=== PATIENT | female | born 1945 | race Caucasian/White ===

== ENCOUNTER 2016-06-15 05:07 | Observation (INO) ==
--- NOTE | 2016-06-15 05:23 | Emergency Department Note ---
Disposition Clinical Impression: Atrial fibrillation with RVR Disposition: Admitted As Inpatient Condition: Fair Referrals: NO,PCP [Non-Partnered Physician] - Forms: ED Satisfaction Letter General Adult HPI - General Chief complaint: ED Chest Pain Stated complaint: CP/REESE Source: patient, EMS Limitations: no limitations - History of Present Illness HPI Narrative: This is a 71-year-old female the previous history of atrial fibrillation although she has not it all a time. She felt onset of palpitations at around 3 AM. She has some discomfort with that at the time. No LOC 70 pain or swelling. She arrives atrial fibrillation with rapid ventricular response at a rate of about 170. Pain Scale: 4 - Related Data Home Medications Medication Instructions Recorded Confirmed Bitter Melon 1 tab PO DAILY 01/12/15 01/12/15 Cholecalciferol (Vitamin D3) 2,000 unit PO DAILY 01/12/15 01/12/15 [Vitamin D3] Fosamax 70 mg PO QWEEK 01/12/15 01/13/15 Losartan [Cozaar] 50 mg PO DAILY 01/12/15 01/13/15 Metoprolol [Lopressor] 50 mg PO BID 01/12/15 01/13/15 Multivitamin [Multi-Day Vitamins] 1 each PO DAILY 01/12/15 01/13/15 Nitroglycerin [Nitrostat] 0.4 mg SL Q5-6MIN PRN 01/12/15 01/13/15 Omeprazole [PriLOSEC] 40 mg PO DAILY 01/12/15 01/12/15 Rosuvastatin [Crestor] 40 mg PO HS 01/12/15 01/13/15 Previous Rx's Medication Instructions Recorded Clopidogrel [Plavix] 75 mg PO DAILY #30 tablet 01/13/15 Warfarin [Coumadin] 5 mg PO DAILY@1800 #30 tablet 01/13/15 Allergies Allergy/AdvReac Type Severity Reaction Status Date / Time codeine Allergy Vomiting Verified 04/09/15 13:05 Penicillins AdvReac Rash Verified 01/12/15 23:06 All systems ED: reviewed and negative except as stated. Constitutional: Denies: fever Respiratory: Denies: cough Gastrointestinal: Denies: abdominal pain, vomiting Past Medical History - Past Medical History Attestation: Yes The following information was validated with the patient. Medical history: Reports: atrial fibrillation, coronary artery disease, GERD, hyperlipidemia, hypertension Psychiatric history: Reports: no psych history - Social History Smoking Status: Never smoker Smokeless Tobacco Status: No Alcohol use: Reports: none Drug use: Reports: none Physical Exam - General Limitations: no limitations General appearance: alert, in no apparent distress - Head Head exam: atraumatic - Eye Eye exam: Present: PERRL, EOMI - ENT ENT exam: normal oropharynx - Neck Neck exam: Present: normal inspection, trachea midline - Respiratory Respiratory exam: Absent: respiratory distress, wheezes - Cardiovascular Cardiovascular exam: Present: tachycardia, irregular rhythm - Abdominal Exam Abdominal exam: Present: soft, Non-Tender. Absent: distention - Extremities Exam Extremities exam: Present: normal inspection. Absent: pedal edema - Neurological Exam Neurological exam: Present: alert, oriented X3 - Skin Skin exam: Present: warm, dry Course Course Narrative: This patient presents with atrial fibrillation with rapid ventricular response. She initially presented with a rate of about 170. We had market improvement with a Cardizem bolus and drip. She is adequately anticoagulated already with an INR of greater than 2. I discussed case with the hospitalist to arrange for admission. Vital Signs Temperature 97.8 F 06/15/16 05:08 Pulse Rate 156 06/15/16 05:08 Respiratory Rate 18 06/15/16 05:08 Blood Pressure 190/126 06/15/16 05:08 O2 Sat by Pulse Oximetry 98 06/15/16 05:08 Temperature 97.8 F 06/15/16 05:08 Pulse Rate 102 06/15/16 06:31 Respiratory Rate 18 06/15/16 06:31 Blood Pressure 202/114 06/15/16 06:31 O2 Sat by Pulse Oximetry 95 06/15/16 06:31 Oxygen Delivery Oxygen Delivery Room Air Medical Decision Making - Medical Records Medical records reviewed: Yes I reviewed the patient's medical records. - Lab Data Lab results reviewed: Yes I reviewed the patient's lab results. Result diagrams: 06/15/16 05:44 06/15/16 05:44 Lab Results 06/15/16 06/15/16 06/15/16 Range/Units 05:44 05:44 05:44 WBC 7.7 (4.3-11.1) K/mcL RBC 5.00 H (3.82-4.97) M/mcL Hgb 14.0 (11.5-15.4) g/dL Hct 42.7 (35.3-44.9) % MCV 85.4 (83.0-100.0) fL MCH 28.0 (28.0-33.3) pg MCHC 32.8 (31.6-35.5) g/dL RDW 13.5 (11.5-14.5) % Plt Count 320 (140-400) K/mcL MPV 9.7 (9.4-12.4) fL Immature Gran % 0.3 (0-4) % Seg Neutrophils % 61.0 % Lymphocytes % 26.9 % Monocytes % 10.0 % Eosinophils % 1.3 % Basophils % 0.5 % Neutrophils # 4.7 (1.6-8.9) K/mcL Lymphocytes # 2.1 (0.6-4.6) K/mcL Monocytes # 0.8 (0.0-1.3) K/mcL Eosinophils # 0.1 (0.0-0.6) K/mcL Basophils # 0.0 (0.0-0.2) K/mcL PT 24.5 H (9.4-12.1) Seconds INR 2.2 Sodium (136-145) mEq/L Potassium (3.5-4.5) mEq/L Chloride (98-109) mEq/L Carbon Dioxide (19-29) mEq/L BUN (7-20) mg/dL Creatinine (0.57-1.11) mg/dL Est GFR ( Amer) (> 60) Est GFR (Non-Af Amer) (> 60) BUN/Creatinine Ratio (6-26) Glucose (70-99) mg/dL Calculated Osmolality (280-300) Calcium (8.6-10.8) mg/dL Troponin I (0-0.03) ng/mL B-Natriuretic Peptide 114 H (0-100) pg/mL 06/15/16 06/15/16 Range/Units 05:44 05:44 WBC (4.3-11.1) K/mcL RBC (3.82-4.97) M/mcL Hgb (11.5-15.4) g/dL Hct (35.3-44.9) % MCV (83.0-100.0) fL MCH (28.0-33.3) pg MCHC (31.6-35.5) g/dL RDW (11.5-14.5) % Plt Count (140-400) K/mcL MPV (9.4-12.4) fL Immature Gran % (0-4) % Seg Neutrophils % % Lymphocytes % % Monocytes % % Eosinophils % % Basophils % % Neutrophils # (1.6-8.9) K/mcL Lymphocytes # (0.6-4.6) K/mcL Monocytes # (0.0-1.3) K/mcL Eosinophils # (0.0-0.6) K/mcL Basophils # (0.0-0.2) K/mcL PT (9.4-12.1) Seconds INR Sodium 143 (136-145) mEq/L Potassium 3.5 (3.5-4.5) mEq/L Chloride 110 H (98-109) mEq/L Carbon Dioxide 23 (19-29) mEq/L BUN 12 (7-20) mg/dL Creatinine 0.85 (0.57-1.11) mg/dL Est GFR ( Amer) > 60 (> 60) Est GFR (Non-Af Amer) > 60 (> 60) BUN/Creatinine Ratio 14 (6-26) Glucose 128 H (70-99) mg/dL Calculated Osmolality 297 (280-300) Calcium 9.6 (8.6-10.8) mg/dL Troponin I 0.02 (0-0.03) ng/mL B-Natriuretic Peptide (0-100) pg/mL - Radiology Data Radiology results reviewed: Yes I reviewed the patient's radiology results. - EKG Data EKG #1 EKG attestation: Yes I reviewed and interpreted this EKG. EKG results narrative: EKG interpreted by me showing atrial fibrillation with rapid ventricular response rate of 164. ST depression anterior laterally
[2016-06-15 05:51] LABS: Basophils % 0.5 %; Eosinophils # 0.1 K/mcL (0.0-0.6); Eosinophils % 1.3 %; Hematocrit 42.7 % (35.3-44.9); Immature Granulocytes % 0.3 % (0-4); Lymphocytes # 2.1 K/mcL (0.6-4.6); Lymphocytes % 26.9 %; Mean Corpuscular HGB Conc 32.8 g/dL (31.6-35.5); Mean Corpuscular Volume 85.4 fL (83.0-100.0); Mean Platelet Volume 9.7 fL (9.4-12.4); Monocytes # 0.8 K/mcL (0.0-1.3); Neutrophils # 4.7 K/mcL (1.6-8.9); Platelet Count 320 K/mcL (140-400); Red Cell Distribution Width 13.5 % (11.5-14.5)
[2016-06-15 05:56] LABS: INR 2.2; Prothrombin Time 24.5 Seconds (9.4-12.1)
[2016-06-15 06:03] LABS: BUN/Creatinine Ratio 14 (6-26); Blood Urea Nitrogen 12 mg/dL (7-20); Calcium 9.6 mg/dL (8.6-10.8); Carbon Dioxide 23 mEq/L (19-29); Chloride 110 mEq/L (98-109); Glucose 128 mg/dL (70-99); Osmolality,Calculated 297 (280-300); Potassium 3.5 mEq/L (3.5-4.5); Sodium 143 mEq/L (136-145); eGFR For African Americans > 60 (> 60); eGFR For Non-African Americans > 60 (> 60)
[2016-06-15] MEDS ORDERED: 0.9 % Sodium Chloride 1,000 ML ONE (06:09)
[2016-06-15] MEDS ORDERED: Acetaminophen 325 MG TABLET PO PRN (07:42)
[2016-06-15] MEDS ORDERED: Naloxone 0.4 MG/ML INJ IVP PRN (07:42)
[2016-06-15] MEDS ORDERED: *HR* Metoprolol 5 MG/5 ML VIAL IVP PRN (07:43)
--- NOTE | 2016-06-15 09:43 | Internal Med History&Physical ---
Date of Encounter: 06/15/16 Time of Encounter: 08:30 Assessment and Plan (1) Atrial fibrillation with rapid ventricular response Current visit: Yes Status: Acute Patient with A. fib with RVR. Patient has been started on diltiazem drip. We will continue this drip and try to control heart rate. Patient is on Coumadin for anticoagulation and her INR is 2.2. High risk for complications due to use of IV diltiazem drip. Continue oral metoprolol. Monitor telemetry. We will check thyroid profile (2) Hypertensive urgency Current visit: Yes Status: Acute Patient's blood pressure has been elevated since presentation. We will control with both oral and intravenous medications. Monitor blood pressure closely. (3) Chest pain Current visit: Yes Status: Acute Patient has chest discomfort related to palpitations. She does have a history of coronary artery disease. We will trend troponins. Qualifiers: Chest pain type: precordial pain Qualified Code(s): R07.2 - Precordial pain (4) CAD (coronary artery disease) Current visit: No Status: Chronic Patient on Plavix, statin and metoprolol. We will continue these medications. Qualifiers: Coronary Disease-Associated Artery/Lesion type: [place] artery [place] vs. transplanted heart: [place] heart Associated angina: without angina Qualified Code(s): I25.10 - Atherosclerotic heart disease of [place] coronary artery without angina pectoris Internal Medicine - H&P: HPI Chief complaint: Palpitations Admitted From: Emergency Dept Plans for Post Hospital Care: Home History of present illness: Ms. Barry is a 71 year old female patient with a history of paroxysmal atrial fibrillation, hypertension, coronary artery disease which has been well controlled presented to the ER with complaints of palpitations that began last night while the patient was sleeping. She woke up feeling discomfort in her toes due to the palpitations. Denies any dizziness or lightheadedness. No cough. No recent illness. No fever, chills or night sweats. No history of any thyroid disease. She takes metoprolol and Coumadin. Her metoprolol dosage had recently been adjusted and she is taking metoprolol 50 mg twice daily. She was previously taking metoprolol 100 mg once daily. She also has high blood pressure and her blood pressure usually runs in the 160s or less. Since coming to the ER her blood pressure has been much higher going up to 202/114. She has been started on diltiazem drip intravenously. She is starting to feel better. Past Med Surg Social Fam HX - Past Medical History Attestation: Yes The following information was validated with the patient. Source: patient, obtained from family Medical history: atrial fibrillation, coronary artery disease, GERD, hyperlipidemia, hypertension Psychiatric history: no psych history - Social History Smoking Status: Never smoker Smokeless Tobacco Status: No Alcohol use: none Drug use: none - Additional Family History Additional family history: Reviewed and found to be noncontributory at this time Internal Medicine - H&P: Meds Alendronate Sodium [Fosamax] 70 mg PO JUNIOR #0 01/12/15 [History] Cholecalciferol (Vitamin D3) [Vitamin D3] 2,000 unit PO DAILY 01/12/15 [History] Losartan [Cozaar] 50 mg PO DAILY 01/12/15 [History] Metoprolol [Lopressor] 50 mg PO BID 01/12/15 [History] Nitroglycerin [Nitrostat] 0.4 mg SL Q5-6MIN PRN 01/12/15 [History] Omeprazole [PriLOSEC] 40 mg PO DAILY 01/12/15 [History] Rosuvastatin [Crestor] 40 mg PO HS 01/12/15 [History] Clopidogrel [Plavix] 75 mg PO DAILY #30 tablet 01/13/15 [Rx] Calcium Carbonate/Vitamin D3 [Calcium 600 + Vit D Tablet] 1 tab PO DAILY [History] Warfarin [Coumadin] 4 mg PO DAILY@1800 06/15/16 [History] Allergies codeine Allergy (Verified 04/09/15 13:05) Vomiting Penicillins Adverse Reaction (Verified 01/12/15 23:06) Rash All Systems PM: A 10-system review of systems was performed and is negative for pertinent findings except as documented above in the HPI. - Constitutional Constitutional: no chills, no fever(s), no night sweats - EENT Eyes: no change in vision, no discharge, no pain, no photophobia Ears: no ear discharge, no ear pain, no tinnitus Nose, mouth and throat: no dysphagia, no nasal discharge, no neck pain, no sore throat - Cardiovascular Cardiovascular ROS IM: palpitations, no chest pain, no diaphoresis, no dyspnea, no lightheadedness, no syncope - Respiratory Respiratory: no cough, no dyspnea, no wheezing, no excessive phlegm production - Gastrointestinal Gastrointestinal: no abdominal pain, no diarrhea, no hematemesis, no hematochezia, no melena, no nausea, no vomiting - Genitourinary Genitourinary: no change in urinary stream, no dysuria, no flank pain, no hematuria - Musculoskeletal Musculoskeletal ROS IM: no numbness, no tingling - Integumentary Integumentary IM: no rash, no unusual bruising - Neurological Neurological ROS: no confusion, no convulsions, no focal weakness, no numbness, no tingling, no tremor(s) - Hematologic/Lymphatic Hematologic/Lymphatic: no easy bruising - Constitutional Vitals: Temp Pulse Resp BP Pulse Ox 97.8 F 107 16 164/61 98 06/15/16 05:08 06/15/16 07:42 06/15/16 07:42 06/15/16 07:42 06/15/16 07:42 General appearance: Present: cooperative, mild distress, A&O X 3, answers questions appropriately - Eye Eye exam: Present: EOMI, PERRL - Neck Neck exam general surgery: Present: supple, trachea midline. Absent: lymphadenopathy - Respiratory Respiratory exam: Present: CTAB. Absent: accessory muscle use, rales, rhonchi, wheezes - Cardiovascular Cardiovascular exam: Present: irregular rhythm (Irregularly irregular), +S1, +S2 , tachycardia. Absent: diastolic murmur, gallop, rubs, systolic murmur - GI/Abdominal GI/Abdominal exam: Present: normal bowel sounds, soft, no peritoneal signs. Absent: distended, tenderness - Extremities Exam Extremities exam: Present: warm, radial pulses palpable and symetrical. Absent : calf tenderness, cyanotic, pedal edema - Neurological Exam Neurological exam: Present: alert, oriented X3, no focal deficits. Absent: facial droop, speech deficit - Psychiatric Psychiatric exam: Present: normal affect, normal mood - Skin Skin exam: Present: dry, intact Internal Med - H&P Results - Labs CBC & Chem 7: 06/15/16 05:44 06/15/16 05:44 Labs: Short CBC 06/15/16 Range/Units 05:44 WBC 7.7 (4.3-11.1) K/mcL Hgb 14.0 (11.5-15.4) g/dL Hct 42.7 (35.3-44.9) % Plt Count 320 (140-400) K/mcL Neutrophils # 4.7 (1.6-8.9) K/mcL BMP 06/15/16 05:44 Sodium 143 Potassium 3.5 Chloride 110 H Carbon Dioxide 23 BUN 12 Creatinine 0.85 Glucose 128 H Calcium 9.6 Cardiac Enzymes 06/15/16 Range/Units 05:44 Troponin I 0.02 (0-0.03) ng/mL - EKG Data -: EKG Interpreted by Myself - EKG Data EKG comments: 06/15/16 09:45 A. fib with RVR - Impressions ITS Impressions Chest X-Ray 06/15/16 05:17 IMPRESSION: No acute disease D/ / Jairo Velarde MD / Jairo Velarde MD Interpreting Provider: Jairo Velarde MD - Attending Attestation This document has been at least partially created by [employer] recognition technology by Dr. Briggs. Errors in grammar, wording or other phrases may exist. If errors are found after the documentation is signed, they will be addressed individually in the addendum section of this document when appropriate.
[2016-06-15] MEDS: Nitroglycerin 0.4 MG TAB.SUBL SL SCH (10:16)
[2016-06-15 11:45] LABS: Thyroid Stimulating Hormone 2.649 mcIU/mL (0.350-4.840)
[2016-06-15] MEDS ORDERED: *HR* Warfarin 5 MG TABLET PO SCH (18:00)
[2016-06-15] MEDS: *HR* Warfarin 4 MG TABLET PO SCH (18:20)
--- NOTE | 2016-06-15 19:42 | Electrocardiograph Report ---
[place] [address] Test Date: 2016-06-15 Pat Name: Viviana Barry Department: 102 Room: 2NE25 Gender: F Manager Finance: : 1945 Requested By: Bill Hale Order Number: [id number] Reading MD: Rinku Mercer MD Measurements Intervals [place] Rate: 164 P: OR: 0 QRS: 10 QRSD: 77 T: 90 QT: 278 QTc: 368 Interpretive Statements ATRIAL FIBRILLATION WITH RAPID VENTRICULAR RESPONSE Electronically Signed On 06-15-2016 19:40:50 EDT by Rinku Mercer MD
[2016-06-16 06:34] LABS: INR 2.1; Prothrombin Time 22.7 Seconds (9.4-12.1)
[2016-06-16] MEDS: Nitroglycerin 0.4 MG TAB.SUBL SL SCH (11:12)
[2016-06-16] MEDS: *HR* Warfarin 4 MG TABLET PO SCH (17:04)
--- NOTE | 2016-06-16 17:42 | Electrocardiograph Report ---
[place] [id number] Test Date: 2016-06-15 Pat Name: Viviana Barry Department: 111 Room: [facility] Gender: F [employer]her: JEFFERSON : 1945 Requested By: Sarmad Bagley Order Number: [id number] Reading MD: Jessica Fall Measurements Intervals [place] Rate: 52 P: 50 MD: 184 QRS: 9 QRSD: 84 T: 44 QT: 440 QTc: 421 Interpretive Statements SINUS BRADYCARDIA NONSPECIFIC T-WAVE ABNORMALITY Electronically Signed On 06-16-2016 17:41:18 EDT by Jessica Fall
--- NOTE | 2016-06-16 18:31 | Internal Med Progress Note ---
Date of Encounter: 06/16/16 Time of Encounter: 18:29 - Assessment and plan (1) Atrial fibrillation with rapid ventricular response Current Visit: Yes Status: Acute Assessment and plan: Admitted with atrial fibrillation with rapid ventricular rate. Patient was on Cardizem drip. Cardizem drip discontinued. She is on metoprolol to. Presently on oral Cardizem/metoprolol. Anticoagulation: Warfarin: INR 2.1 Plan: We will observe her overnight. If she is stable by tomorrow will get her home. (2) CAD (coronary artery disease) Current Visit: No Status: Chronic Assessment and plan: Patient does have coronary artery disease. She does not have chest pain right now. We will continue to monitor. Qualifiers: Coronary Disease-Associated Artery/Lesion type: [place] artery [place] vs. transplanted heart: [place] heart Associated angina: without angina Qualified Code(s): I25.10 - Atherosclerotic heart disease of [place] coronary artery without angina pectoris (3) Hypertensive urgency Current Visit: Yes Status: Acute Assessment and plan: Resolved - Subjective Interval history: Seen and examined. Chart reviewed. Patient is sitting comfortably in the bed. Family at bedside. - Constitutional Vitals: Temp Pulse Resp BP Pulse Ox 98.3 F 52 16 157/55 96 06/16/16 15:05 06/16/16 15:05 06/16/16 15:05 06/16/16 15:05 06/16/16 15:05 General appearance: Present: cooperative, mild distress, A&O X 3, answers questions appropriately - Head Head exam: Present: atraumatic, normocephalic - Eye Eye exam: Present: PERRL, conjuntiva pink, sclera anicteric Pupils: Present: PERRL - Neck Neck exam general surgery: Present: supple, trachea midline. Absent: lymphadenopathy - Respiratory Respiratory exam: Present: CTAB. Absent: accessory muscle use, rales, rhonchi, wheezes - Cardiovascular Cardiovascular exam: Present: RRR, +S1, +S2. Absent: diastolic murmur, gallop, rubs, systolic murmur - GI/Abdominal GI/Abdominal exam: Present: normal bowel sounds, soft, no peritoneal signs. Absent: distended, tenderness - Extremities Exam Extremities exam: Present: warm, radial pulses palpable and symetrical. Absent : calf tenderness, cyanotic, pedal edema - Neurological Exam Neurological exam: Present: CN II-XII intact, oriented X3, no focal deficits. Absent: pronater drift, facial droop, speech deficit - Skin Skin exam: Present: dry, intact Internal Medicine: Result - Labs CBC & Chem 7: 06/15/16 05:44 06/15/16 05:44 - ABG Interpretation ABG results: PT/INR, D-dimer PT 22.7 Seconds (9.4-12.1) H 06/16/16 05:30 Consult Discharge Plan - Plan Referrals: Jaime Swenson MD [Primary Care Provider] -
[2016-06-17 06:09] LABS: Basophils % 0.5 %; Eosinophils # 0.1 K/mcL (0.0-0.6); Eosinophils % 1.9 %; Hematocrit 38.3 % (35.3-44.9); Hemoglobin 12.6 g/dL (11.5-15.4); Immature Granulocytes % 0.2 % (0-4); Lymphocytes # 2.3 K/mcL (0.6-4.6); Lymphocytes % 36.2 %; Mean Corpuscular HGB Conc 32.9 g/dL (31.6-35.5); Mean Corpuscular Hemoglobin 28.3 pg (28.0-33.3); Mean Corpuscular Volume 86.1 fL (83.0-100.0); Mean Platelet Volume 10.1 fL (9.4-12.4); Monocytes # 0.6 K/mcL (0.0-1.3); Monocytes % 8.7 %; Neutrophils # 3.4 K/mcL (1.6-8.9); Platelet Count 296 K/mcL (140-400); Red Blood Count 4.45 M/mcL (3.82-4.97); Red Cell Distribution Width 13.7 % (11.5-14.5); Segmented Neutrophils % 52.5 %
[2016-06-17 06:16] LABS: INR 2.2; Prothrombin Time 24.3 Seconds (9.4-12.1)
[2016-06-17 06:25] LABS: BUN/Creatinine Ratio 16 (6-26); Blood Urea Nitrogen 13 mg/dL (7-20); Calcium 9.1 mg/dL (8.6-10.8); Carbon Dioxide 25 mEq/L (19-29); Chloride 110 mEq/L (98-109); Glucose 97 mg/dL (70-99); Osmolality,Calculated 292 (280-300); Potassium 3.8 mEq/L (3.5-4.5); Sodium 141 mEq/L (136-145); eGFR For African Americans > 60 (> 60); eGFR For Non-African Americans > 60 (> 60)
[2016-06-17 06:40] VITALS: BP 145/63
--- NOTE | 2016-06-17 08:01 | Discharge Summary ---
Date of Encounter: 06/17/16 Time of Encounter: 07:58 - Discharge Diagnosis (1) Atrial fibrillation with rapid ventricular response Priority: Primary Status: Acute (2) CAD (coronary artery disease) Priority: Primary Status: Chronic Qualifiers: Coronary Disease-Associated Artery/Lesion type: [place] artery [place] vs. transplanted heart: [place] heart Associated angina: without angina Qualified Code(s): I25.10 - Atherosclerotic heart disease of [place] coronary artery without angina pectoris (3) Hypertensive urgency Priority: Primary Status: Acute (4) Elevated troponin Priority: Secondary Status: Acute - Discharge Medications Home Medications: Alendronate Sodium [Fosamax] 70 mg PO JUNIOR #0 01/12/15 [History] Cholecalciferol (Vitamin D3) [Vitamin D3] 2,000 unit PO DAILY 01/12/15 [History] Losartan [Cozaar] 50 mg PO DAILY 01/12/15 [History] Metoprolol [Lopressor] 50 mg PO BID 01/12/15 [History] Nitroglycerin [Nitrostat] 0.4 mg SL Q5-6MIN PRN 01/12/15 [History] Omeprazole [PriLOSEC] 40 mg PO DAILY 01/12/15 [History] Rosuvastatin [Crestor] 40 mg PO HS 01/12/15 [History] Clopidogrel [Plavix] 75 mg PO DAILY #30 tablet 01/13/15 [Rx] Calcium Carbonate/Vitamin D3 [Calcium 600 + Vit D Tablet] 1 tab PO DAILY [History] Warfarin [Coumadin] 4 mg PO DAILY@1800 06/15/16 [History] Allergies/Adverse Reactions: Allergies codeine Allergy (Verified 04/09/15 13:05) Vomiting Penicillins Adverse Reaction (Verified 01/12/15 23:06) Rash Procedures/tests Complete & Pending: Procedures Performed prior 72 hours Category Date Time Status ECG 12 lead ECG [ECG] Routine Y 06/15/16 Completed Date of admission: 06/15/16 11:23 Primary care physician: Jaime Swenson MD Discharging clinician: Sarmad Bagley - Patient Status Disposition: Home, Self-Care Condition: Fair Functional capacity at discharge: independent ambulation Overall status at discharge: patient is progressing back to baseline - Discharge Instructions Follow Up With: Jaime Swenson MD [Primary Care Provider] - Noel Abreu DO [Partnered Physician] - - Diet and Activity Activity: increase activity as tolerated Diet: low fat, low cholesterol, low salt diet Interval History: Ms. Barry is a 71 year old female patient with a history of paroxysmal atrial fibrillation, hypertension, coronary artery disease which has been well controlled presented to the ER with complaints of palpitations that began last night while the patient was sleeping. She woke up feeling discomfort in her toes due to the palpitations. Denies any dizziness or lightheadedness. No cough. No recent illness. No fever, chills or night sweats. No history of any thyroid disease. She takes metoprolol and Coumadin. Her metoprolol dosage had recently been adjusted and she is taking metoprolol 50 mg twice daily. She was previously taking metoprolol 100 mg once daily. She also has high blood pressure and her blood pressure usually runs in the 160s or less. Since coming to the ER her blood pressure has been much higher going up to 202/114. She has been started on diltiazem drip intravenously. She is starting to feel better. Hospital course: Patient was hospitalized. She was started on Cardizem drip. Patient responded well to intravenous Cardizem drip. Patient's blood pressure was within acceptable range. Patient's heart rate was between 80 and 90s. Patient was switched to oral Cardizem. At this point patient's heart rate was in 50s. Patient is very keen to go home. Recommended cardiology evaluation. She does not want any more of evaluation by cardiology. Noted that patient has an appointment with the cardiology as outpatient. Plan: Patient can go home today but there is a risk involved of her getting back into the atrial fibrillation with a rapid ventricular rate. Patient understood the risks but she is very keen to go home. I recommended patient not to take Cardizem in view of the heart rate in 50s. Recommended to continue her warfarin. Follow up with primary care provider in 1-2 weeks. Follow up with cardiology as scheduled. At the time of discharge all questions answered. - Time Spent with Patient Total time spent providing and/or coordinating discharge services: - Constitutional Vitals: Temp Pulse Resp BP Pulse Ox 98 F 57 16 145/63 96 06/17/16 06:37 06/17/16 06:37 06/17/16 06:37 06/17/16 06:37 06/17/16 06:37 General appearance: Present: cooperative, mild distress, A&O X 3, answers questions appropriately - Head Head exam: Present: atraumatic, normocephalic - Eye Eye exam: Present: PERRL, conjuntiva pink, sclera anicteric Pupils: Present: PERRL - Neck Neck exam general surgery: Present: supple, trachea midline. Absent: lymphadenopathy - Respiratory Respiratory exam: Present: CTAB. Absent: accessory muscle use, rales, rhonchi, wheezes - Cardiovascular Cardiovascular exam: Present: RRR, +S1, +S2. Absent: diastolic murmur, gallop, rubs, systolic murmur - GI/Abdominal GI/Abdominal exam: Present: normal bowel sounds, soft, no peritoneal signs. Absent: distended, tenderness - Extremities Exam Extremities exam: Present: warm, radial pulses palpable and symetrical. Absent : calf tenderness, cyanotic, pedal edema - Neurological Exam Neurological exam: Present: CN II-XII intact, oriented X3, no focal deficits. Absent: pronater drift, facial droop, speech deficit - Skin Skin exam: Present: dry, intact
[2016-06-17] MEDS: Nitroglycerin 0.4 MG TAB.SUBL SL SCH (10:41)
== END 2016-06-17 12:05 | disposition home or self-care (01) ==
LOC: 2NENU 05:07 → EMEROO 05:07 → 2NENU 11:58
PROVIDERS: ADMIT Internal Medicine; ATTEND Internal Medicine

== ENCOUNTER 2016-07-13 23:12 | Observation (INO) ==
[2016-07-13] MEDS ORDERED: *HR* Metoprolol 5 MG/5 ML VIAL IVP ONE ×2 (23:20→23:56)
--- NOTE | 2016-07-13 23:26 | Emergency Department Note ---
Disposition Clinical Impression: Atrial fibrillation with RVR Chest pain Qualifiers: Chest pain type: precordial pain Qualified Code(s): R07.2 - Precordial pain Disposition: Admitted As Inpatient Condition: Fair Time of Disposition: 04:07 Chest Pain HPI - General Chief Complaint: ED Chest Pain Stated Complaint: CP/palpitations/afib on monitor & hx of/Holter Time Seen by Provider: 07/13/16 23:12 Vital Signs Reviewed: Yes Nursing Notes Reviewed: Yes - History of Present Illness HPI Narrative: Mrs. Barry, 71 old female, presents from home via EMS with chief complaint of chest pain and palpitations. Patient arrives with Holter monitor. Her symptoms today began with palpitations after which she experienced chest pain described as sharp midsternal, nonradiating. Associated with weakness. No dyspnea or diaphoresis. Patient took 3 sublingual nitroglycerin of her own prescription without relief in her chest pain. Her symptoms spontaneously resolved after approximately 1 hour. Chest pain resolved with cessation of palpitations. Patient is currently chest pain-free. Patient's is currently admitted on 2N12. PMH: A. fib RVR., GERD, CAD, history of demand ischemia. Anticoagulated: Coumadin. Antiplatelet: Plavix, aspirin Rate control via metoprolol 50 mg twice a day; patient has not taken her evening dose. ROS: Positive: Chest pain, palpitations, weakness Negative: Fever, chills, nausea, vomiting, back pain, arm pain, abdominal pain, hematochezia, melena - Related Data Home Medications Medication Instructions Recorded Confirmed Alendronate Sodium [Fosamax] 70 mg PO JUNIOR #0 01/12/15 07/14/16 Cholecalciferol (Vitamin D3) 2,000 unit PO DAILY 01/12/15 07/14/16 [Vitamin D3] Losartan [Cozaar] 50 mg PO DAILY 01/12/15 07/14/16 Metoprolol [Lopressor] 25 mg PO BID 01/12/15 07/14/16 Nitroglycerin [Nitrostat] 0.4 mg SL Q5-6MIN PRN 01/12/15 07/14/16 Omeprazole [PriLOSEC] 40 mg PO DAILY 01/12/15 07/14/16 Rosuvastatin [Crestor] 40 mg PO HS 01/12/15 07/14/16 Calcium Carbonate/Vitamin D3 1 tab PO DAILY 06/15/16 07/14/16 [Calcium 600 + Vit D Tablet] Warfarin [Coumadin] 4 mg PO DAILY@1800 06/15/16 07/14/16 Previous Rx's Medication Instructions Recorded Clopidogrel [Plavix] 75 mg PO DAILY #30 tablet 01/13/15 Allergies Allergy/AdvReac Type Severity Reaction Status Date / Time codeine Allergy Vomiting Verified 07/13/16 23:18 diltiazem [From Cardizem] AdvReac See Verified 07/13/16 23:19 Comments Penicillins AdvReac Rash Verified 07/13/16 23:18 All systems ED: reviewed and negative except as stated. Chest Pain PMH - Past Medical History Medical history: Reports: atrial fibrillation, coronary artery disease, GERD, hyperlipidemia, hypertension Psychiatric history: Reports: no psych history - Social History Smoking Status: Never smoker Alcohol use: Reports: none Drug use: Reports: none Physical Exam Vital Signs Reviewed General: Patient is alert, oriented, and in no acute distress. HEENT: No facial asymmetry. Head is normocephalic and atraumatic. PERRLA. Trachea midline. Cardiovascular: Heart tachycardic rate and irregular rhythm without clicks, rubs , gallops, or murmurs. No JVD. PMI nondisplaced. Bilateral radial pulses 2/ 4. No pedal edema. Respiratory: Symmetric chest rise with good respiratory effort. Bilateral breath sounds are clear without wheezing, crackles, or rhonchi. Abdomen: Bowel sounds present normoactive x-4 quadrants. Abdomen is soft, nondistended, and nontender. Psych: Patient's affect is appropriate for situation. Course Course Narrative: Per patient, on previous visits to this facility, patient was administered Cardizem after which she became very bradycardic with heart rate in the teens. Chart check does not make mention of this event. In fact, patient was on cardizem drip and weaned to metropolol. On initial evaluation, spoke with patient regarding admission. She is agreeable to admission. Patient given 5 mg IV push of metoprolol was recently lowered her heart rate into the 120s. Blood pressure remained stable in the 170s. Redosed 5 mg IV push metoprolol after which her heart rate came down to 106-110 with blood pressure remaining greater than 150. She remains in atrial fibrillation and asymptomatic. Spoke with the admitting hospitalist, Dr. Escobar, who agrees to accept the patient. Vital Signs Temperature 98.2 F 07/13/16 23:20 Pulse Rate 166 07/13/16 23:20 Respiratory Rate 20 07/13/16 23:20 Blood Pressure 172/111 07/13/16 23:20 O2 Sat by Pulse Oximetry 95 07/13/16 23:20 Temperature 97.9 F 07/14/16 02:14 Pulse Rate 87 07/14/16 02:14 Respiratory Rate 14 07/14/16 02:14 Blood Pressure 147/69 07/14/16 02:14 O2 Sat by Pulse Oximetry 96 07/14/16 02:14 Oxygen Delivery Oxygen Delivery Room Air Chest Pain - Medical Records Medical records reviewed: Yes I reviewed the patient's medical records. - Lab Data Result diagrams: 07/13/16 23:40 07/13/16 23:40 Lab Results 07/13/16 07/13/16 07/13/16 Range/Units 23:40 23:40 23:40 WBC 7.6 (4.3-11.1) K/mcL RBC 4.98 H (3.82-4.97) M/mcL Hgb 14.0 (11.5-15.4) g/dL Hct 42.0 (35.3-44.9) % MCV 84.3 (83.0-100.0) fL MCH 28.1 (28.0-33.3) pg MCHC 33.3 (31.6-35.5) g/dL RDW 13.6 (11.5-14.5) % Plt Count 329 (140-400) K/mcL MPV 9.9 (9.4-12.4) fL Immature Gran % 0.4 (0-4) % Seg Neutrophils % 63.0 % Lymphocytes % 26.6 % Monocytes % 8.6 % Eosinophils % 1.0 % Basophils % 0.4 % Neutrophils # 4.8 (1.6-8.9) K/mcL Lymphocytes # 2.0 (0.6-4.6) K/mcL Monocytes # 0.7 (0.0-1.3) K/mcL Eosinophils # 0.1 (0.0-0.6) K/mcL Basophils # 0.0 (0.0-0.2) K/mcL PT 15.6 H (9.4-12.1) Seconds INR 1.4 APTT 25.2 L (26.0-36.0) Seconds Sodium 141 (136-145) mEq/L Potassium 3.7 (3.5-4.5) mEq/L Chloride 108 (98-109) mEq/L Carbon Dioxide 22 (19-29) mEq/L BUN 10 (7-20) mg/dL Creatinine 0.94 (0.57-1.11) mg/dL Est GFR ( Amer) > 60 (> 60) Est GFR (Non-Af Amer) 58 L (> 60) BUN/Creatinine Ratio 11 (6-26) Glucose 143 H (70-99) mg/dL Calculated Osmolality 294 (280-300) Calcium 10.6 (8.6-10.8) mg/dL Troponin I (0-0.03) ng/mL 07/13/16 Range/Units 23:40 WBC (4.3-11.1) K/mcL RBC (3.82-4.97) M/mcL Hgb (11.5-15.4) g/dL Hct (35.3-44.9) % MCV (83.0-100.0) fL MCH (28.0-33.3) pg MCHC (31.6-35.5) g/dL RDW (11.5-14.5) % Plt Count (140-400) K/mcL MPV (9.4-12.4) fL Immature Gran % (0-4) % Seg Neutrophils % % Lymphocytes % % Monocytes % % Eosinophils % % Basophils % % Neutrophils # (1.6-8.9) K/mcL Lymphocytes # (0.6-4.6) K/mcL Monocytes # (0.0-1.3) K/mcL Eosinophils # (0.0-0.6) K/mcL Basophils # (0.0-0.2) K/mcL PT (9.4-12.1) Seconds INR APTT (26.0-36.0) Seconds Sodium (136-145) mEq/L Potassium (3.5-4.5) mEq/L Chloride (98-109) mEq/L Carbon Dioxide (19-29) mEq/L BUN (7-20) mg/dL Creatinine (0.57-1.11) mg/dL Est GFR ( Amer) (> 60) Est GFR (Non-Af Amer) (> 60) BUN/Creatinine Ratio (6-26) Glucose (70-99) mg/dL Calculated Osmolality (280-300) Calcium (8.6-10.8) mg/dL Troponin I 0.01 (0-0.03) ng/mL - Radiology Data Radiology results reviewed: Yes I reviewed the patient's radiology results. Chest X-Ray 07/13/16 23:20 IMPRESSION: No acute process. Incidental moderate hiatal hernia with air-fluid level. D/ / Imani Kim MD / Imani Kim MD Interpreting Provider: Imani Kim MD - EKG Data EKG attestation: Yes I reviewed and interpreted this EKG. EKG results narrative: EKG dated 07/13/16 at 23:18 interpreted as A. fib with RVR; rate of 152. Nonspecific ST-T changes. Compared to previous dated 06/15/2016 also showing A. fib with RVR; no acute ischemic changes in comparison. Heart Score - Score History: Slightly Suspicious EKG: Non Specific repolarisation Disturbance Age: Greater than 65 Risk Factors: Equal/Greater than 3 risk factor or history of atherosclerotic disease Troponin: Less than normal limit HEART Score Total: 5 Critical Care Time Critical Care Time: Yes Total Critical Care Time: 40 Attestation: Critical care performed: Time is exclusive of separately billable procedures. Time includes: direct patient care, patient reassessment, coordination of patient care, interpretation of data (laboratory data, radiology data, and respiratory data), review of patient's medical records, medical consultation and documentation of patient care. Procedures included in critical care time: Procedures excluded from critical care time: Attestation Statement - Attestation Attestation: I, Jose Eduardo Solano MD, personally evaluated this patient and discussed their management with the resident physician. I reviewed the resident's note and agree with the documented findings, medical decision making, and plan of care. 71-year-old female presents to the emergency department with a complaint of palpitations and chest pain which started about one hour prior to arrival. Patient states she developed palpitations first and her heart was racing and irregular and then she developed some sharp stabbing pains in the mid chest. She took her nitroglycerin and states he gave her headache but did not really help the pain. The pain is now totally resolved. He has a history of atrial fibrillation with RVR and was recently in the hospital for this. On examination patient is a well-developed well-nourished well-appearing elderly female in no acute distress. She is alert and oriented 3. There is no cyanosis or diaphoresis. Chest is nontender to palpation. Breath sounds are clear and equal bilaterally. Heart is irregularly irregular and markedly tachycardic. Abdomen is soft and nontender with normal bowel sounds. No pedal edema. EKG shows atrial fibrillation with RVR. Labs reviewed. Troponin normal. Patient received IV metoprolol 2 doses with significant improvement in her tachycardia but continues to have atrial fibrillation with RVR with heart rate in the range of 100 to 120s. The hospitalist, Dr. Escobar, was consulted and accepted admission of the patient.
[2016-07-13 23:47] LABS: Basophils % 0.4 %; Eosinophils # 0.1 K/mcL (0.0-0.6); Immature Granulocytes % 0.4 % (0-4); Lymphocytes % 26.6 %; Mean Corpuscular HGB Conc 33.3 g/dL (31.6-35.5); Mean Corpuscular Hemoglobin 28.1 pg (28.0-33.3); Mean Corpuscular Volume 84.3 fL (83.0-100.0); Mean Platelet Volume 9.9 fL (9.4-12.4); Monocytes # 0.7 K/mcL (0.0-1.3); Monocytes % 8.6 %; Neutrophils # 4.8 K/mcL (1.6-8.9); Platelet Count 329 K/mcL (140-400); Red Blood Count 4.98 M/mcL (3.82-4.97); Red Cell Distribution Width 13.6 % (11.5-14.5)
[2016-07-13 23:52] LABS: INR 1.4; Prothrombin Time 15.6 Seconds (9.4-12.1)
[2016-07-13 23:54] LABS: Activated Partial Thrombo Time 25.2 Seconds (26.0-36.0)
[2016-07-14] LABS: BUN/Creatinine Ratio 11 (6-26); Blood Urea Nitrogen 10 mg/dL (7-20); Calcium 10.6 mg/dL (8.6-10.8); Carbon Dioxide 22 mEq/L (19-29); Chloride 108 mEq/L (98-109); Glucose 143 mg/dL (70-99); Osmolality,Calculated 294 (280-300); Potassium 3.7 mEq/L (3.5-4.5); Sodium 141 mEq/L (136-145); eGFR For African Americans > 60 (> 60); eGFR For Non-African Americans 58 (> 60)
[2016-07-14] MEDS ORDERED: *HR* Warfarin 5 MG TABLET PO ONE (00:05)
--- NOTE | 2016-07-14 02:35 | Internal Med History&Physical ---
Date of Encounter: 07/14/16 Time of Encounter: 02:32 Assessment and Plan (1) Atrial fibrillation with rapid ventricular response Current visit: Yes Status: Acute patient with a history of paroxysmal AFIB comes in with palpitations and found to be in RVR and given IV metoprolol, no cardizem drip was initiated due to concern for bradycardia with cardizem reported some time ago, we will consider starting cardizem cautiously, will check TSH, resume home medications (2) Chest pain Current visit: Yes Status: Acute patient with a history of CAD s/p MARTIN placement in the proximal LAD in 07/2014 as well as significant family history of premature CAD comes in with Chest pain in the setting of AFIB RVR, her pain could be attributed to demand ischemia but it will be reasonable to r/o ACS considering her concerning history, her cath in 2014 also reported the following lesions; proximal circumflex 30% stenosis, ramus 40% stenosis, mid and distal RCA 30% stenosis her admission EKG is also worrisome for deep ST depressions in the inferior and lateral leads, trops were unremarkable, no need to check A1c/lipid profile since theses were checked recently, we will admit for stress test in AM Qualifiers: Chest pain type: precordial pain Qualified Code(s): R07.2 - Precordial pain (3) HTN (hypertension) Current visit: Yes Status: Chronic will continue home medications with BP monitoring Qualifiers: Hypertension type: essential hypertension Qualified Code(s): I10 - Essential (primary) hypertension (4) CAD (coronary artery disease) Current visit: Yes Status: Chronic per chest pain section Qualifiers: Coronary Disease-Associated Artery/Lesion type: [place] artery [place] vs. transplanted heart: [place] heart Associated angina: without angina Qualified Code(s): I25.10 - Atherosclerotic heart disease of [place] coronary artery without angina pectoris (5) GERD (gastroesophageal reflux disease) Current visit: Yes Status: Chronic will continue her PPI Qualifiers: Esophagitis presence: without esophagitis Qualified Code(s): K21.9 - Gastro -esophageal reflux disease without esophagitis Internal Medicine - H&P: HPI Chief complaint: Chest pain and palpitations Admitted From: Emergency Dept Plans for Post Hospital Care: Home History of present illness: Ms. Barry is a 71 year old female with a history of AFIB/CAD s/p stent about 2 years ago comes in with chest pain. She was in her usual state of health until yesterday when she was at rest watching TV and playing on her tablet when she suddenly experienced chest pain that was retrosternal, 6/10 in severity and non radiating, it was pressure-like in character, associated with palpitations. She was not lightheaded and denies dyspnea, no feeling of apprehension, nausea or vomiting. She took 3 tablets of nitro and her pain eased a little, she called [facility] who brought here here. Her pain had subsided then. In the ER she was found to be in AFIB with RVR of 152bpm so she received IV metoprolol. We will admit for further evaluation and management. Past Med Surg Social Fam HX - Past Medical History Source: patient, old records reviewed Medical history: atrial fibrillation, CHF (mild diastolic dysfunction, normal LVEF), coronary artery disease, GERD, hyperlipidemia, hypertension Psychiatric history: no psych history - Past Surgical History Surgical History: angioplasty/stent (MARTIN placement in the proximal LAD), cholecystectomy - Social History Smoking Status: Former smoker Packs per day: smoked lightly, quit about 20 years ago Smokeless Tobacco Status: No Alcohol use: none Drug use: none Current living situation: Home - Independent, With Family Activity Level: Independent ambulation - Additional Family History Additional family history: mother had an ID in her 50's, brother had an ID in his 50's, sister also had an ID in her 50's, father had dementia Internal Medicine - H&P: Meds Alendronate Sodium [Fosamax] 70 mg PO JUNIOR #0 01/12/15 [History] Cholecalciferol (Vitamin D3) [Vitamin D3] 2,000 unit PO DAILY 01/12/15 [History] Losartan [Cozaar] 50 mg PO DAILY 01/12/15 [History] Metoprolol [Lopressor] 25 mg PO BID 01/12/15 [History] Nitroglycerin [Nitrostat] 0.4 mg SL Q5-6MIN PRN 01/12/15 [History] Omeprazole [PriLOSEC] 40 mg PO DAILY 01/12/15 [History] Rosuvastatin [Crestor] 40 mg PO HS 01/12/15 [History] Clopidogrel [Plavix] 75 mg PO DAILY #30 tablet 01/13/15 [Rx] Calcium Carbonate/Vitamin D3 [Calcium 600 + Vit D Tablet] 1 tab PO DAILY [History] Warfarin [Coumadin] 4 mg PO DAILY@1800 06/15/16 [History] Allergies codeine Allergy (Verified 07/13/16 23:18) Vomiting diltiazem [From Cardizem] Adverse Reaction (Verified 07/13/16 23:19) See Comments drops HR to low Penicillins Adverse Reaction (Verified 07/13/16 23:18) Rash All Systems PM: A 10-system review of systems was performed and is negative for pertinent findings except as documented above in the HPI. - Constitutional Vitals: Temp Pulse Resp BP Pulse Ox 97.9 F 87 14 147/69 96 07/14/16 02:14 07/14/16 02:14 07/14/16 02:14 07/14/16 02:14 07/14/16 02:14 PHYSICAL EXAMINATION: GENERAL: Adult female, awake and alert, not in obvious acute distress, HEENT: NC/AT, EOMI, PERRLA, anicteric sclera, normal conjunctiva, supple, clear nares, moist mucous membranes, RESP: lungs are clear to auscultation bilaterally, good AE bilaterally, No crackles or wheeze CARDIO: irregularly irregular tachycardic heart sounds with no murmurs, no JVD , no ankle edema GI: Soft, full, no tenderness, no organomegaly felt, normal bowel sounds heard MUSCULOSKELETAL: grossly normal movements bilaterally, no deformities noted, no calf tenderness NEUROLOGIC: CN 2-12 intact grossly. No motor/sensory deficit appreciated, PSYCHIATRY: AAO x 3. Mood is fair, SKIN: no rash noted Internal Med - H&P Results - Labs CBC & Chem 7: 07/13/16 23:40 07/13/16 23:40 - EKG Data -: EKG Interpreted by Myself (AFIB with rate of 152, DEMETRIUS depressions in the inferior lateral leads) Rate: tachycardia - EKG Data Interpretation IM: ischemic changes - Diagnostic Studies Chest x-ray Status: image reviewed by me
[2016-07-14] MEDS ORDERED: Naloxone 0.4 MG/ML INJ IVP PRN (03:18)
[2016-07-14] MEDS ORDERED: Nitroglycerin 0.4 MG TAB.SUBL SL PRN (03:19)
[2016-07-14] MEDS ORDERED: Regadenoson 0.4 MG/5 ML SYRINGE IVP ONE (06:01)
[2016-07-14 06:40] LABS: INR 1.6; Prothrombin Time 17.5 Seconds (9.4-12.1)
[2016-07-14 06:45] LABS: BUN/Creatinine Ratio 11 (6-26); Blood Urea Nitrogen 9 mg/dL (7-20); Calcium 9.9 mg/dL (8.6-10.8); Carbon Dioxide 24 mEq/L (19-29); Chloride 109 mEq/L (98-109); Glucose 101 mg/dL (70-99); Osmolality,Calculated 291 (280-300); Sodium 141 mEq/L (136-145); eGFR For African Americans > 60 (> 60); eGFR For Non-African Americans > 60 (> 60)
[2016-07-14] MEDS: Cholecalciferol (D-3) 1,000 UNIT TABLET PO SCH (09:26)
--- NOTE | 2016-07-14 11:24 | Nuclear Medicine Stress Report ---
Regadenoson Nuclear 2 day Name: Viviana Barry Date of Study: 07/14/2016 Date: 1945 Ht: 61.0 in Medical Record#: [id number] Age: 71 Wt: 139.0 lb Gender: Female Order #: [id number] Location: [facility] Room: [facility] Supervising Provider: Jose Francisco Rhodes CNP Reading Physician: Noel Abreu DO, FACC, FASNC Ordering Physician: Chelsi Gottlieb MD Primary Care Physician: Jaime Swenson MD Stress Technologist: Carol Huizar RRT Poultry Picking Machine Tender: Channing Coffman Indications: Chest Pain Impression: Pharmacologic stress ECG is negative for ischemia at level of heart rate achieved. Gated EF > 70%. Perfusion imaging was negative for ischemia or infarct. History: Hypertension Hypercholesteremia Prior PCI Stress Test Summary: Stress Test Type: Pharmacologic Regadenoson 0.4mg/5ml given IV Baseline Information: Initial Heart Rate: 63 Blood Pressure: 140/80 Stress Information: Test Terminated Due to (primary): As per protocol Maximum Blood Pressure: 146/80 Maximum Heart Rate: 94 Percent Maximum Heart Rate Achieved: 64 Double Product: [id number] METS Reached: 1 Symptoms: No chest symptoms Nuclear Summary: SPECT myocardial perfusion imaging using Tc99m Sestamibi given intravenously was performed at rest and following cardiac stress testing. The resting images were obtained following initial dose of 11.4 mCi. Following stress an additional dose of 29.8 mCi was given at peak exercise or 30 seconds post regadenoson infusion. Medication Given: Time Medication Dose Units Route Findings: Stress Note * Resting ECG demonstrated normal sinus rhythm. * No baseline arrhythmias were noted. * Pharmacologic stress ECG is negative for ischemia at level of heart rate achieved. * No arrhythmias were noted during stress. * Patient had no chest pain during stress. * Normal hemodynamic responses to pharmacologic stress. Study Quality * Study quality is good. Gated EF > 70% * Gated EF > 70%. Left Ventricle * The left ventricle is not dilated. NORMALS * Normal wall motion. * Normal Segmental Perfusion in rest. * Normal segmental perfusion in stress. TID * No evidence of transient ischemic dilatation. * TID ratio = 1.0. Lung Uptake * There is no evidence of increase lung uptake. Updated by Noel Abreu DO, FACC, FASE FASBERNARD on 07/14/2016 11:18:21 AM electronically signed on 07/14/2016 11:19:11 AM with status of Final
--- NOTE | 2016-07-14 13:38 | Internal Med Progress Note ---
Date of Encounter: 07/14/16 Time of Encounter: 13:38 - Assessment and plan (1) Chest pain Current Visit: Yes Status: Acute Assessment and plan: We will place on telemetry. Trend troponin. Follow-up nuclear stress test. Qualifiers: Chest pain type: precordial pain Qualified Code(s): R07.2 - Precordial pain (2) Atrial fibrillation with rapid ventricular response Current Visit: Yes Status: Acute Assessment and plan: Patient is currently in atrial fibrillation rate controlled. Her highest documented heart rate was in the 160s, lowest in the high 40s. Per history she has had significant bradycardia secondary to diltiazem. She only received treatment with metoprolol and heart rate control however due to the great degree of variation in her heart rate I will call cardiology to discuss the case and consideration for pacemaker implantation. (3) Elevated troponin Current Visit: No Status: Acute Assessment and plan: Likely secondary to demand ischemia. (4) CAD (coronary artery disease) Current Visit: Yes Status: Chronic Assessment and plan: Continue with Plavix, metoprolol, losartan and Crestor. Stress test to evaluate for ischemia. Qualifiers: Coronary Disease-Associated Artery/Lesion type: [place] artery [place] vs. transplanted heart: [place] heart Associated angina: without angina Qualified Code(s): I25.10 - Atherosclerotic heart disease of [place] coronary artery without angina pectoris (5) Demand ischemia Current Visit: No Status: Acute - Subjective Interval history: 07/14/2016: Patient presented to Hospital with midsternal chest pain described as pressure, 8/10 in intensity associated with shortness of breath she was followed by heart palpitations. She noted that her heart rate was as high as 187 when she checked with her pulse ox. Currently she denies any palpitations shortness of breath. Denies chest pain. Her symptoms have resolved. - Constitutional Vitals: Temp Pulse Resp BP Pulse Ox 97.9 F 47 14 113/53 94 07/14/16 11:08 07/14/16 11:08 07/14/16 11:08 07/14/16 11:08 07/14/16 11:08 - Neck Neck exam general surgery: Present: supple, trachea midline. Absent: lymphadenopathy - Respiratory Respiratory exam: Present: CTAB. Absent: accessory muscle use, rales, rhonchi, wheezes - Cardiovascular Cardiovascular exam: Present: irregular rhythm, +S1, +S2. Absent: diastolic murmur, gallop, rubs, systolic murmur - Extremities Exam Extremities exam: Present: warm, radial pulses palpable and symetrical. Absent : calf tenderness, cyanotic, pedal edema - Skin Skin exam: Present: dry, intact Internal Medicine: Result - Labs CBC & Chem 7: 07/13/16 23:40 07/14/16 05:38 Labs: BMP 07/14/16 05:38 Sodium 141 Potassium 4.0 Chloride 109 Carbon Dioxide 24 BUN 9 Creatinine 0.82 Glucose 101 H Calcium 9.9 Cardiac Enzymes 07/14/16 07/14/16 Range/Units 05:38 12:16 Troponin I 0.03 0.01 (0-0.03) ng/mL - ABG Interpretation ABG results: PT/INR, D-dimer PT 17.5 Seconds (9.4-12.1) H 07/14/16 05:38 Consult Discharge Plan - Plan Referrals: Jaime Swenson MD [Primary Care Provider] - 07/20/16 3:00 pm
--- NOTE | 2016-07-14 16:42 | Electrocardiograph Report ---
[place] [address] Test Date: 2016-07-13 Pat Name: Viviana Barry Department: 104 Room: 2A23 Gender: F Veneer Cutter: CONNIE : 1945 Requested By: Brian Persaud Order Number: [id number] Reading MD: Jessica Fall Measurements Intervals [place] Rate: 152 P: [place]: 0 QRS: 19 QRSD: 91 T: 49 QT: 225 QTc: 311 Interpretive Statements ATRIAL FIBRILLATION WITH RAPID VENTRICULAR RESPONSE NONSPECIFIC ST \T\ T-WAVE ABNORMALITY ABNORMAL RHYTHM ECG Electronically Signed On 07-14-2016 16:40:13 EDT by Jessica Fall
[2016-07-15] MEDS: Cholecalciferol (D-3) 1,000 UNIT TABLET PO SCH (09:28)
--- NOTE | 2016-07-15 10:49 | Cardiology Consult Note ---
Date of Encounter: 07/15/16 Time of Encounter: 09:30 Assessment and Plan (1) Chest pain Current Visit: Yes Status: Acute Patient's chest pain correlates with RVR. Her troponins have been negative x3 and she underwent stress testing that was negative. Recommend continued medical therapy for known CAD. Qualifiers: Chest pain type: precordial pain Qualified Code(s): R07.2 - Precordial pain (2) Atrial fibrillation with rapid ventricular response Current Visit: Yes Status: Acute Patient was recently hospitalized for AF RVR. Her primary marketing/sales person discussed considering antiarrhythmic therapy if recurrence. I discussed this with the patient today. She is reluctant to stay for initiation of antiarrhythmic therapy because her is ill. She prefers to follow up with Dr. Abreu as an outpatient. She is now in NSR on her home dose of metoprolol and HR's are in the 50's. Therefore, will leave metoprolol at present dose. She is anticoagulated with coumadin. Discussion w patient/family: The assessment and plan as outlined above was discussed with the patient and/or family members who expressed understanding and agreement. All questions were answered. Thank you for involving us in the care of your patient. We will sign off. Outpatient follow up to be scheduled with Dr. Abreu. Please call with questions. History of Present Illness Consult date: 07/15/16 Requesting physician: Cole Chan Consult reason: AFIB Chief complaint: Palpitations and chest pain History of present illness: Ms. Barry is a 71 year old female presenting with chest pain and palpitations. Patient was recently hospitalized for atrial fibrillation with RVR and was discharged on 06/17 and then followed up with her primary marketing/sales person 2016. She was in her usual state of health until recently when sitting watching TV she developed substernal chest pain that radiated to her back. Upon arrival to ER, she was noted to be in AF RVR. There were no acute ECG findings. Chest pain resolved in ER. Her troponins have been negative x3. She underwent stress testing that was negative. She is now back in NSR. At the bedside, the patient feels back to her usual state of health. She denies any further chest pain. She is not having SOB or feeling palpitations. Past Med Surg Social Fam HX - Past Medical History Attestation: Yes The following information was validated with the patient. Medical history: atrial fibrillation, CHF (mild diastolic dysfunction, normal LVEF), coronary artery disease, GERD, hyperlipidemia, hypertension Psychiatric history: no psych history - Past Surgical History Surgical History: angioplasty/stent (MARTIN placement in the proximal LAD), cholecystectomy - Social History Smoking Status: Former smoker Packs per day: smoked lightly, quit about 20 years ago Smokeless Tobacco Status: No Alcohol use: none Drug use: none Medications and Allergies Alendronate Sodium [Fosamax] 70 mg PO JUNIOR #0 01/12/15 [History] Cholecalciferol (Vitamin D3) [Vitamin D3] 2,000 unit PO DAILY 01/12/15 [History] Losartan [Cozaar] 50 mg PO DAILY 01/12/15 [History] Metoprolol [Lopressor] 25 mg PO BID 01/12/15 [History] Nitroglycerin [Nitrostat] 0.4 mg SL Q5-6MIN PRN 01/12/15 [History] Omeprazole [PriLOSEC] 40 mg PO DAILY 01/12/15 [History] Rosuvastatin [Crestor] 40 mg PO HS 01/12/15 [History] Clopidogrel [Plavix] 75 mg PO DAILY #30 tablet 01/13/15 [Rx] Calcium Carbonate/Vitamin D3 [Calcium 600 + Vit D Tablet] 1 tab PO DAILY [History] Warfarin [Coumadin] 4 mg PO DAILY@1800 06/15/16 [History] L. Acidophilus/Pectin, [place] [Acidophilus Probiotic Capsule] 1 cap PO DAILY [History] Multivitamin [One Daily Essential] 1 tab PO DAILY 07/14/16 [History] Allergies codeine Allergy (Verified 07/13/16 23:18) Vomiting diltiazem [From Cardizem] Adverse Reaction (Verified 07/13/16 23:19) See Comments drops HR to low Penicillins Adverse Reaction (Verified 07/13/16 23:18) Rash All Systems Review: A 10-system review of systems was performed and is negative for pertinent findings except as documented above in the HPI. - Cardiovascular Cardiovascular: as per HPI Physical Examination Vital Signs, Last 4 Hours Temp Pulse Resp BP Pulse Ox 07/15/16 07:00 98.0 F 52 16 112/67 95 General: Conversant, No Apparent Distress HEENT: Atraumatic, Normocephaly, Mucus Membranes Moist Neck: No JVD, Normal carotid pulses Cardiac: Reg Rate and Rhythm, Normal S1 and S2, No Murmur Lungs: Normal Breath Sounds, No Wheeze, Rales, Rhonchi Neuro: Alert and responsive, No focal deficits noted Abdomen: Soft, Non-Tender, Other (normal bowel sounds) Extremities: No Edema, Other (pedal pulses present) Results 07/13/16 23:40 07/14/16 05:38 Lab Results Lab results reviewed. Troponin negative x3 Normal renal function. Normal electrolytes. Recent TSH normal - Imaging and Cardiology Chest Xray: report reviewed Stress Test: report reviewed Other Results: Outpatient medical records reviewed - EKG Interpretation EKG results cardiology: personally reviewed (Presenting ECG demonstrates AF RVR HR [address] abnormalities. ST abnormalities are also present on ECG 07/13/2014) Consult Discharge Plan - Plan Referrals: Jaime Swenson MD [Primary Care Provider] - 07/20/16 3:00 pm
[2016-07-15 11:39] VITALS: BP 132/74
--- NOTE | 2016-07-15 12:53 | Discharge Summary ---
Date of Encounter: 07/15/16 Time of Encounter: 12:49 - Discharge Medications Home Medications: Alendronate Sodium [Fosamax] 70 mg PO JUNIOR #0 01/12/15 [History] Cholecalciferol (Vitamin D3) [Vitamin D3] 2,000 unit PO DAILY 01/12/15 [History] Losartan [Cozaar] 50 mg PO DAILY 01/12/15 [History] Metoprolol [Lopressor] 25 mg PO BID 01/12/15 [History] Nitroglycerin [Nitrostat] 0.4 mg SL Q5-6MIN PRN 01/12/15 [History] Omeprazole [PriLOSEC] 40 mg PO DAILY 01/12/15 [History] Rosuvastatin [Crestor] 40 mg PO HS 01/12/15 [History] Clopidogrel [Plavix] 75 mg PO DAILY #30 tablet 01/13/15 [Rx] Calcium Carbonate/Vitamin D3 [Calcium 600 + Vit D Tablet] 1 tab PO DAILY [History] Warfarin [Coumadin] 4 mg PO DAILY@1800 06/15/16 [History] L. Acidophilus/Pectin, [place] [Acidophilus Probiotic Capsule] 1 cap PO DAILY [History] Multivitamin [One Daily Essential] 1 tab PO DAILY 07/14/16 [History] Allergies/Adverse Reactions: Allergies codeine Allergy (Verified 07/13/16 23:18) Vomiting diltiazem [From Cardizem] Adverse Reaction (Verified 07/13/16 23:19) See Comments drops HR to low Penicillins Adverse Reaction (Verified 07/13/16 23:18) Rash Procedures/tests Complete & Pending: Procedures Performed prior 72 hours Category Date Time Status NM paddy perf SPECT multi [NM] Routine Exams 07/14/16 03:27 Taken SP pharm nuclear stress Routine Y 07/14/16 03:27 Completed Date of admission: 07/14/16 00:54 Primary care physician: Jaime Swenson MD Consults: 07/14/16 16:12 Consult to Cardiology [CONS] Routine Comment: Consulting Provider: Cardiology Krystal Reason for Consult: Atrial fibrillation with uncontrolled controlled rate Time Notified: 16:13 Call Completed: Yes - Patient Status Disposition: Home, Self-Care Condition: Fair Overall status at discharge: patient is progressing back to baseline - Discharge Instructions Follow Up With: Jaime Swenson MD [Primary Care Provider] - 07/20/16 3:00 pm Noel Abreu DO [Partnered Physician] - 07/18/16 Interval History: 71-year-old female with history of paroxysmal atrial fibrillation presented to the emergency room yesterday with atrial fibrillation with rapid ventricular response. Patient has reverted to normal sinus rhythm rate 50- 60s which is her baseline. Cardiology service has evaluated the patient. Patient does not want to stay in-hospital to start antiarrhythmic medications. Patient will be discharged on our home those of metoprolol which is 25 mg twice a day. Patient will follow-up with Dr. Abreu for talking about initiation of antiarrhythmic medications. Hospital course: Ms. Barry is a 71 year old female - Time Spent with Patient Total time spent providing and/or coordinating discharge services: - Constitutional Vitals: Temp Pulse Resp BP Pulse Ox 98.0 F 54 16 132/74 97 07/15/16 11:00 07/15/16 11:00 07/15/16 11:00 07/15/16 11:00 07/15/16 11:00 Exam: Gen.: patient is alert oriented times 3 not in distress. Cardiac: normal S1 S2 no additional sounds or murmurs chest: fair air entry. no active wheezing. No crackles or bronchial breathing. abdomen: soft nontender nondistended normal bowel sounds neuro: no focal deficit
[2016-07-15] MEDS ORDERED: *HR* Warfarin 4 MG TABLET PO SCH (18:00)
[2016-07-16] MEDS ORDERED: (Alendronate Sodium [Fosamax] 70 MG) PO SCH (03:19)
== END 2016-07-15 14:07 | disposition home or self-care (01) ==
LOC: EMEROO 23:12 → 2ANU 23:12 → SUATTDRO 07-14 00:54 → 2ANU 07-14 01:20
PROVIDERS: ADMIT Internal Medicine; ATTEND Internal Medicine

== ENCOUNTER 2016-08-05 08:44 | Inpatient (IN) ==
[2016-08-05] MEDS ORDERED: Nitroglycerin 0.4 MG TAB.SUBL SL PRN (09:56)
--- NOTE | 2016-08-05 10:16 | History & Physical Report ---
Date of Encounter: 08/05/16 Time of Encounter: 10:12 24 Hour HP Update - Instructions Instructions: If the History and Physical is less than 30 days old and was completed prior to A.M. admission and or procedure and has NOT been updated on calendar day of procedure please complete this update prior to performing procedure. - Update Patient reports changes in Medical Condition: No Changes in examination, assessment, or condition: No Changes in Medication: No Preop tests/diagnostics Reviewed: No - Pre-Operative Checklist Home Medications Include Beta Geovani: Yes - Attending Attestation mrs. Barry presents for sotalol initiation for PAF. Please see office note from 07/21/[address] Sky Fall for full H&P. Discussed with Dr. Sky Fall, HR in the high 50's currently. EKG shows SB HR 46 bpm. Hold metoprolol and start low dose sotalol at 40 mg BID. She is asymptomatic with her bradycardia. All questions answered.
[2016-08-05] MEDS ORDERED: Naloxone 0.4 MG/ML INJ IVP PRN (10:17)
[2016-08-05 11:14] LABS: INR 1.7; Prothrombin Time 19.1 Seconds (9.4-12.1)
[2016-08-05] MEDS ORDERED: *HR* Warfarin 4 MG TABLET PO SCH (18:00)
[2016-08-05] MEDS ORDERED: Warfarin 0.5 MG, Warfarin 4 MG PO SCH (18:00)
[2016-08-06 05:00] LABS: INR 1.7; Prothrombin Time 18.7 Seconds (9.4-12.1)
[2016-08-06] MEDS: Cholecalciferol (D-3) 1,000 UNIT TABLET PO SCH (07:55)
[2016-08-06] MEDS: Multivit/Ca/Min/Fe/FA 1 TAB TABLET PO SCH (07:55)
--- NOTE | 2016-08-06 09:42 | Cardiology Progress Note ---
Date of Encounter: 08/06/16 Time of Encounter: 09:35 Assessment and Plan (1) PAF (paroxysmal atrial fibrillation) Current Visit: Yes Status: Acute Presented 08/06/15 for sotalol therapy initiation. Presented with SB HR 46 BPM. Sotalol 40 mg BID started and metoprolol discontinued. She remains sinus bradycardia HR 50's this morning. Minimum HR on telemetry review was 36 BPM at 0625. No pauses. She denies dizziness or lightheadedness. She is ambulating in her room. As of note her is currently here in a hospice bed and she will be visiting him today. Continue sotalol 40 MG BID for 5 doses. Baseline EKG: HR 46 bpm, QRS 89, QT/QTc 436/396. EKG 08/06/16: HE 44 bpm, QRS 94, QT/QTc 480/429. (2) CAD (coronary artery disease) Current Visit: No Status: Chronic H/o PCI 07/2014. Last stress test 06/2016 was negative for ischemia. Denies chest pain. Continue Plavix and statin. Metoprolol started to allow for sotalol. Not on asa to avoid triple therapy. Qualifiers: Coronary Disease-Associated Artery/Lesion type: [place] artery [place] vs. transplanted heart: [place] heart Associated angina: without angina Qualified Code(s): I25.10 - Atherosclerotic heart disease of [place] coronary artery without angina pectoris Discussion w patient/family: The assessment and plan as outlined above was discussed with the patient and/or family members who expressed understanding and agreement. All questions were answered. Thank you for involving us in the care of your patient. Please call with any questions. Subjective Principal diagnosis: PAF Interval history: No complaints overnight. Presented 08/05/17 for sotalol therapy initiation for PAF. Objective Vital Signs, Last 4 Hours Temp Pulse Resp BP Pulse Ox 08/06/16 07:50 97.8 F 43 16 141/64 96 General: Conversant, No Apparent Distress HEENT: Atraumatic, Normocephaly, Mucus Membranes Moist Neck: No JVD, Normal carotid pulses Cardiac: Reg Rate and Rhythm, Normal S1 and S2, No Murmur Lungs: Normal Breath Sounds, No Wheeze, Rales, Rhonchi Neuro: Alert and responsive, No focal deficits noted Abdomen: Soft, Non-Tender Skin: No rashes noted on visualized skin Musculoskeletal: No Chest Wall Tenderness Extremities: No Clubbing, No Cyanosis, No Edema, Normal Pulses Results Lab Results 08/05/16 08/06/16 10:56 04:13 INR 1.7 D 1.7 - EKG Interpretation EKG results cardiology: personally reviewed - VTE Reasons for not Prescribing Prophylaxis: Not indicated-Anticoagulated or INR therapeutic Consult Discharge Plan - Plan Referrals: Jaime Swenson MD [Primary Care Provider] -
[2016-08-06] MEDS ORDERED: NON-FORMULARY MEDICATION 1 EACH EACH (Alendronate Sodium [Fosamax] 70 MG) PO SCH (09:56)
[2016-08-06] MEDS ORDERED: *HR* Warfarin 5 MG TABLET PO SCH (18:00)
[2016-08-07 05:09] LABS: INR 1.8; Prothrombin Time 20.2 Seconds (9.4-12.1)
[2016-08-07] MEDS: Multivit/Ca/Min/Fe/FA 1 TAB TABLET PO SCH (08:56)
[2016-08-07] MEDS: Cholecalciferol (D-3) 1,000 UNIT TABLET PO SCH (08:56)
[2016-08-07 11:42] VITALS: BP 141/53
--- NOTE | 2016-08-07 11:58 | Discharge Summary ---
Date of Encounter: 08/07/16 Time of Encounter: 11:56 - Discharge Diagnosis (1) PAF (paroxysmal atrial fibrillation) Priority: Primary Status: Acute (2) CAD (coronary artery disease) Priority: Secondary Status: Chronic Qualifiers: Coronary Disease-Associated Artery/Lesion type: [place] artery [place] vs. transplanted heart: [place] heart Associated angina: without angina Qualified Code(s): I25.10 - Atherosclerotic heart disease of [place] coronary artery without angina pectoris - Discharge Medications Prescriptions: Warfarin [Coumadin] 5 mg PO 1800 #30 tablet Home Medications: Alendronate Sodium [Fosamax] 70 mg PO JUNIOR #0 01/12/15 [History] Cholecalciferol (Vitamin D3) [Vitamin D3] 2,000 unit PO DAILY 01/12/15 [History] Losartan [Cozaar] 50 mg PO DAILY 01/12/15 [History] Nitroglycerin [Nitrostat] 0.4 mg SL Q5-6MIN PRN 01/12/15 [History] Omeprazole [PriLOSEC] 40 mg PO DAILY 01/12/15 [History] Rosuvastatin [Crestor] 40 mg PO HS 01/12/15 [History] Clopidogrel [Plavix] 75 mg PO DAILY #30 tablet 01/13/15 [Rx] Calcium Carbonate/Vitamin D3 [Calcium 600 + Vit D Tablet] 1 tab PO DAILY [History] Multivitamin [One Daily Essential] 1 tab PO DAILY 07/14/16 [History] Sotalol [Betapace] 40 mg PO Q12H tablet 08/07/16 [Rx] Warfarin [Coumadin] 5 mg PO 1800 #30 tablet 08/07/16 [Rx] Allergies/Adverse Reactions: Allergies codeine Allergy (Verified 07/13/16 23:18) Vomiting diltiazem [From Cardizem] Adverse Reaction (Verified 07/13/16 23:19) See Comments drops HR to low Penicillins Adverse Reaction (Verified 07/13/16 23:18) Rash Procedures/tests Complete & Pending: Procedures Performed prior 72 hours Category Date Time Status EKG [ECG 12 lead ECG] [ECG] AM 0600 Y 08/06/16 06:00 Completed EKG [ECG 12 lead ECG] [ECG] AM 0600 Y 08/07/16 06:00 Completed Date of admission: 08/05/16 10:17 Primary care physician: Jaime Swenson MD - Patient Status Disposition: Home, Self-Care Condition: Fair Overall status at discharge: patient is not back to baseline - Discharge Instructions Instructions: Warfarin (By mouth), Sotalol (By mouth), Atrial Fibrillation (DC) , Chest Pain (DC), Chronic Hypertension (DC), Vitamin K in Foods (DC) Follow Up With: Jaime wSenson MD [Primary Care Provider] - 08/14/16 10:15 am Sky Fall MD [Partnered Physician] - (Cardiology office will call you with a follow up appointment) Additional Instructions: Continue to follow INR with Dr. Swenson. Check INR . Coumadin was increased to 5 mg daily d/t INR being below therapeutic level. INR today was 1.8. - Hospital Course Hospital course: Ms. Barry is a 71 year old female with a past medical history of PAF on coumadin and CAD s/p previous PCI who presented for sotalol therapy initiation ordered by Dr. Sky Fall. Holter monitor one month ago showed avg HR 58 BPM, sinus bradycardia with frequent periods of tachycardia including SVT and atrial fibrillation. On presentation she was sinus bradycardia HR mid 40's - 50's. She denied symptoms from bradycardia. Denies dizziness or lightheadedness. Her metoprolol was discontinued and sotalol 40 mg BID was started. She is s/p 5 doses of Sotalol and QTc remains normal. HR consistently mid 40's to 50's. Possible need for PPM was discussed with patient during her stay. She would like to avoid for as long as possible. No evidence of block seen and she is asymptomatic. She is ambulating in hallway with appropriate increase in HR to the 50's. Discussed with Dr. Sky Fall yesterday, recommended to continue sotalol. No recurrent afib seen. 24 hour telemetry review shows AVg HR 50 bpm. No pauses seen. Minimum HR 43 BPM at 0303. No recurrent afib or SVT seen. EKG at baseline showed HR 46bpm, QT/QTc 436/396, QRS 81. EKG today shows sinus bradycardia, HR 43, Qt-QTc 487/434, QRS 87. - Time Spent with Patient Total time spent providing and/or coordinating discharge services: Greater than 30 minutes Physical Examination Vital Signs, Last 4 Hours Pulse Resp BP Pulse Ox 08/07/16 11:38 48 16 141/53 94 08/07/16 08:00 54 General: Conversant, No Apparent Distress HEENT: Atraumatic, Normocephaly, Mucus Membranes Moist Neck: No JVD, Normal carotid pulses Cardiac: Reg Rate and Rhythm, Normal S1 and S2, No Murmur Lungs: Normal Breath Sounds, No Wheeze, Rales, Rhonchi Neuro: Alert and responsive, No focal deficits noted Abdomen: Soft, Non-Tender Skin: No rashes noted on visualized skin Musculoskeletal: No Chest Wall Tenderness Extremities: No Clubbing, No Cyanosis, No Edema, Normal Pulses - VTE Reasons for not Prescribing Prophylaxis: Not indicated-Anticoagulated or INR therapeutic
--- NOTE | 2016-08-07 16:36 | Electrocardiograph Report ---
[place] [address] Test Date: 2016-08-05 Pat Name: Viviana Barry Department: 110 Room: 06 Gender: F [employer] Consultant: MRR : 1945 Requested By: David Starkey Order Number: [id number] Reading MD: Rinku Mercer MD Measurements Intervals [place] Rate: 46 P: 58 [place]: 154 QRS: 13 QRSD: 89 T: 47 QT: 436 QTc: 394 Interpretive Statements SINUS BRADYCARDIA WITH SINUS ARRHYTHMIA Electronically Signed On 08-07-2016 16:35:10 EDT by Rinku Mercer MD
--- NOTE | 2016-08-07 18:07 | Electrocardiograph Report ---
[place] [address] Test Date: 2016-08-07 Pat Name: Viviana Barry Department: 110 Room: 06 Gender: F [employer] Process Technician: TASHI : 1945 Requested By: David Starkey Order Number: [id number] Reading MD: Rinku Mercer MD Measurements Intervals [place] Rate: 45 P: 63 MT: 153 QRS: 18 QRSD: 90 T: 41 QT: 486 QTc: 441 Interpretive Statements SINUS BRADYCARDIA WITH SINUS ARRHYTHMIA Electronically Signed On 08-07-2016 18:06:07 EDT by Rinku Mercer MD
== END 2016-08-07 12:20 | disposition home or self-care (01) | DRG 310 ==
LOC: 2NNU
PROVIDERS: ADMIT Internal Medicine; ATTEND Internal Medicine

== ENCOUNTER 2017-03-17 21:32 | Observation (INO) ==
[2017-03-17] MEDS ORDERED: Amiodarone Premix 150 MG/100 ML BAG IVPB ONE (21:58)
[2017-03-17] MEDS ORDERED: Amiodarone Premix 360 MG/200 ML BAG IVC ONE (21:58)
[2017-03-17 22:12] LABS: Basophils % 0.2 %; Eosinophils # 0.1 K/mcL (0.0-0.6); Eosinophils % 1.1 %; Hematocrit 39.8 % (35.3-44.9); Hemoglobin 13.1 g/dL (11.5-15.4); Immature Granulocytes % 0.2 % (0-4); Lymphocytes # 2.2 K/mcL (0.6-4.6); Lymphocytes % 22.2 %; Mean Corpuscular HGB Conc 32.9 g/dL (31.6-35.5); Mean Corpuscular Hemoglobin 28.5 pg (28.0-33.3); Mean Corpuscular Volume 86.5 fL (83.0-100.0); Mean Platelet Volume 9.8 fL (9.4-12.4); Monocytes # 0.9 K/mcL (0.0-1.3); Monocytes % 8.6 %; Neutrophils # 6.8 K/mcL (1.6-8.9); Platelet Count 296 K/mcL (140-400); Red Cell Distribution Width 13.1 % (11.5-14.5); Segmented Neutrophils % 67.7 %
--- NOTE | 2017-03-17 22:22 | Emergency Department Note ---
Disposition Clinical Impression: Chest pressure, Atrial fibrillation with rapid ventricular response Disposition: Admitted As Inpatient Condition: Good Time of Disposition: 23:10 General Adult HPI - General Chief complaint: ED Arrhythmia/Palpitations Stated complaint: increased heart rate Time Seen by Provider: 03/17/17 21:38 Source: patient, EMS Limitations: no limitations Nursing Notes Reviewed: Yes Vital Signs Reviewed: Yes - History of Present Illness HPI Narrative: Patient is a 71-year-old female that presents to the emergency department for chest pressure with atrophic relation. She felt like her heart was pounding. There is no radiation of her pressure. States that she became diaphoretic with the pain. She states that she took 3 nitroglycerin which helped with the pressure. Patient states that she was started on sotalol in July for her age fibrillation and has not had any issues since then. Patient states that she had a previous [place] with 2 stents placed in 2014. Pain Scale: 0 - Related Data Home Medications Medication Instructions Recorded Confirmed Alendronate Sodium [Fosamax] 70 mg PO JUNIOR #0 01/12/15 08/05/16 Cholecalciferol (Vitamin D3) 2,000 unit PO DAILY 01/12/15 08/05/16 [Vitamin D3] Losartan [Cozaar] 50 mg PO DAILY 01/12/15 08/05/16 Nitroglycerin [Nitrostat] 0.4 mg SL Q5-6MIN PRN 01/12/15 08/05/16 Omeprazole [PriLOSEC] 40 mg PO DAILY 01/12/15 08/05/16 Rosuvastatin [Crestor] 40 mg PO HS 01/12/15 08/05/16 Calcium Carbonate/Vitamin D3 1 tab PO DAILY 06/15/16 08/05/16 [Calcium 600 + Vit D Tablet] Multivitamin [One Daily Essential] 1 tab PO DAILY 07/14/16 08/05/16 Previous Rx's Medication Instructions Recorded Clopidogrel [Plavix] 75 mg PO DAILY #30 tablet 01/13/15 Sotalol [Betapace] 40 mg PO Q12H tablet 08/07/16 Warfarin [Coumadin] 5 mg PO 1800 #30 tablet 08/07/16 HYDROcodone/Acet 5/325 mg [[place] 1 tab PO Q4H PRN #10 tab 10/07/16 5-325 mg] Promethazine [Phenergan] 12.5 mg PO Q8HR #8 tablet 10/07/16 Allergies Allergy/AdvReac Type Severity Reaction Status Date / Time codeine Allergy Vomiting Verified 07/13/16 23:18 diltiazem [From Cardizem] AdvReac See Verified 07/13/16 23:19 Comments Penicillins AdvReac Rash Verified 07/13/16 23:18 All systems ED: reviewed and negative except as stated. Constitutional: Reports: other (diaphoretic) Cardiovascular: Reports: chest pain (Pressure), palpitations (Pressure) Past Medical History - Past Medical History Medical history: Reports: atrial fibrillation, CHF, coronary artery disease, GERD, hyperlipidemia, hypertension Surgical history: Reports: angioplasty/stent, cholecystectomy Psychiatric history: Reports: no psych history BALLET DANCER history: Reports: no BALLET DANCER history - Social History Smoking Status: Former smoker Smokeless Tobacco Status: No Alcohol use: Reports: none Drug use: Reports: none Physical Exam - General Limitations: no limitations General appearance: alert, in no apparent distress - Head Head exam: atraumatic, normocephalic - Eye Eye exam: Present: normal appearance, EOMI - Neck Neck exam: Present: normal inspection. Absent: full ROM, trachea midline - Respiratory Respiratory exam: Present: normal lung sounds bilaterally. Absent: respiratory distress, wheezes - Cardiovascular Cardiovascular exam: Present: regular rate, normal rhythm, normal heart sounds, +S1, +S2 - Abdominal Exam Abdominal exam: Present: soft, Non-Tender, normal bowel sounds - Neurological Exam Neurological exam: Present: alert, oriented X3 - Psychiatric Psychiatric exam: Present: normal affect, normal mood - Skin Skin exam: Present: warm, dry, intact Course Vital Signs Pulse Rate 152 03/17/17 21:36 Respiratory Rate 14 03/17/17 21:36 Blood Pressure 190/105 03/17/17 21:36 O2 Sat by Pulse Oximetry 94 03/17/17 21:36 Temperature 98.1 F 03/17/17 21:41 Pulse Rate 84 03/17/17 23:13 Respiratory Rate 16 03/17/17 23:13 Blood Pressure 112/80 03/17/17 23:13 O2 Sat by Pulse Oximetry 94 03/17/17 23:13 Oxygen Delivery Oxygen Delivery Room Air Medical Decision Making - MDM Narrative Medical decision making narrative: The patient having chest pain described as pressure and A. fib with a rapid ventricular response will obtain a CBC, BMP, troponin, chest x-ray and EKG. EKG showed a rhythm of atrial fibrillation with RVR with concern for depressions in the anterior septal leads. We have asked for an EKG with posterior leads to be done. The patient's troponin was negative. The chest or sheet showed no acute process. The EKG was done with posterior leads which showed no evidence of STEMI. The remainder of her laboratory testing was unremarkable. Her INR was 2.4 which is therapeutic. The patient has been started on amiodarone for the patient's rate control due to the patient having adverse reactions to diltiazem in the past. The remainder of her laboratory testing was unremarkable. I called spoke with the hospitalist and they have accepted the patient to their service. Patient will be admitted to the hospital at this time for further evaluation and management. - Lab Data Lab results reviewed: Yes I reviewed the patient's lab results. Result diagrams: 03/17/17 22:01 03/17/17 22:01 Lab Results 03/17/17 03/17/17 03/17/17 Range/Units 22:01 22:01 22:01 WBC 10.0 (4.3-11.1) K/mcL RBC 4.60 (3.82-4.97) M/mcL Hgb 13.1 (11.5-15.4) g/dL Hct 39.8 (35.3-44.9) % MCV 86.5 (83.0-100.0) fL MCH 28.5 (28.0-33.3) pg MCHC 32.9 (31.6-35.5) g/dL RDW 13.1 (11.5-14.5) % Plt Count 296 (140-400) K/mcL MPV 9.8 (9.4-12.4) fL Immature Gran % 0.2 (0-4) % Seg Neutrophils % 67.7 % Lymphocytes % 22.2 % Monocytes % 8.6 % Eosinophils % 1.1 % Basophils % 0.2 % Neutrophils # 6.8 (1.6-8.9) K/mcL Lymphocytes # 2.2 (0.6-4.6) K/mcL Monocytes # 0.9 (0.0-1.3) K/mcL Eosinophils # 0.1 (0.0-0.6) K/mcL Basophils # 0.0 (0.0-0.2) K/mcL PT (9.4-12.1) Seconds INR Sodium 142 (136-145) mEq/L Potassium 3.7 (3.5-5.1) mEq/L Chloride 110 H (98-107) mEq/L Carbon Dioxide 23 (23-29) mEq/L BUN 10 (8-23) mg/dL Creatinine 0.85 (0.60-1.20) mg/dL Est GFR ( Amer) > 60 (> 60) Est GFR (Non-Af Amer) > 60 (> 60) BUN/Creatinine Ratio 12 (6-26) Glucose 124 H (70-105) mg/dL Calculated Osmolality 294 (280-300) Calcium 9.4 (8.6-10.3) mg/dL Magnesium 2.1 (1.6-2.6) mg/dL Troponin I < 0.03 (< 0.04) ng/mL TSH 1.586 (0.340-5.600) mcIU/mL 03/17/17 Range/Units 22:01 WBC (4.3-11.1) K/mcL RBC (3.82-4.97) M/mcL Hgb (11.5-15.4) g/dL Hct (35.3-44.9) % MCV (83.0-100.0) fL MCH (28.0-33.3) pg MCHC (31.6-35.5) g/dL RDW (11.5-14.5) % Plt Count (140-400) K/mcL MPV (9.4-12.4) fL Immature Gran % (0-4) % Seg Neutrophils % % Lymphocytes % % Monocytes % % Eosinophils % % Basophils % % Neutrophils # (1.6-8.9) K/mcL Lymphocytes # (0.6-4.6) K/mcL Monocytes # (0.0-1.3) K/mcL Eosinophils # (0.0-0.6) K/mcL Basophils # (0.0-0.2) K/mcL PT 26.6 H (9.4-12.1) Seconds INR 2.4 Sodium (136-145) mEq/L Potassium (3.5-5.1) mEq/L Chloride (98-107) mEq/L Carbon Dioxide (23-29) mEq/L BUN (8-23) mg/dL Creatinine (0.60-1.20) mg/dL Est GFR ( Amer) (> 60) Est GFR (Non-Af Amer) (> 60) BUN/Creatinine Ratio (6-26) Glucose (70-105) mg/dL Calculated Osmolality (280-300) Calcium (8.6-10.3) mg/dL Magnesium (1.6-2.6) mg/dL Troponin I (< 0.04) ng/mL TSH (0.340-5.600) mcIU/mL - Radiology Data Radiology results reviewed: Yes I reviewed the patient's radiology results. Chest X-Ray 03/17/17 21:58 IMPRESSION: No acute cardiopulmonary process. D/ / Lux Becerril MD / Lux Becerril MD Interpreting Provider: Lux Becerril MD - EKG Data EKG #1 EKG attestation: Yes I reviewed and interpreted this EKG. EKG results narrative: EKG showed atrial fibrillation with rapid ventricular response. Rate of 157 bpm , QRS duration of 79, QTC of 384. There is concerns for ST depressions in the anterior septal leads. This is compared to previous EKG on 07/12/16 which showed sinus bradycardia at a rate of 47 bpm. EKG #2 EKG attestation: Yes I reviewed and interpreted this EKG. EKG results narrative: EKG showed atrial fibrillation at a rate of 144 bpm, QRS duration of 73, QTC of 55. This was done with posterior leads which showed no evidence of a posterior STEMI. Attestation Statement - Attestation Attestation: I examined this patient and my medical decision-making was reviewed with the Resident Physician. I agree with the documented findings, disposition and treatment plan as described except to the extent set forth below. Patient presents to the ED with a chief complaint of high heart rate. History of atrial fibrillation. States she cannot tolerate Cardizem. She is not a Bartholin on Coumadin. On examination she is in no acute distress. Heart tachycardia and irregularly irregular. Lungs clear. Plan. EKG is atrial fibrillation with some ST depressions. A posterior EKG was done to rule out a posterior STEMI. She is chest pain-free. She is admitted to medicine. Heart rate between 100-130 on amiodarone drip. 35 minutes of critical care exclusive of separately billed procedures.
[2017-03-17 22:31] LABS: BUN/Creatinine Ratio 12 (6-26); Blood Urea Nitrogen 10 mg/dL (8-23); Calcium 9.4 mg/dL (8.6-10.3); Carbon Dioxide 23 mEq/L (23-29); Chloride 110 mEq/L (98-107); Glucose 124 mg/dL (70-105); Magnesium 2.1 mg/dL (1.6-2.6); Osmolality,Calculated 294 (280-300); Potassium 3.7 mEq/L (3.5-5.1); Sodium 142 mEq/L (136-145); eGFR For African Americans > 60 (> 60); eGFR For Non-African Americans > 60 (> 60)
[2017-03-17 22:44] LABS: Thyroid Stimulating Hormone 1.586 mcIU/mL (0.340-5.600)
[2017-03-17 22:52] LABS: INR 2.4; Prothrombin Time 26.6 Seconds (9.4-12.1)
[2017-03-17] MEDS ORDERED: *HR* Metoprolol 5 MG/5 ML VIAL IVP PRN (23:21)
--- NOTE | 2017-03-17 23:55 | Internal Med History&Physical ---
Date of Encounter: 03/17/17 Time of Encounter: 23:45 Assessment and Plan (1) Atrial fibrillation with RVR Current visit: Yes Status: Acute Will place patient in hospital for observation. Consult cardiology. Discussed with Dr. Perez who recommended giving the patient intravenous Lopressor to control her heart rate as she has been allergic to Cardizem. He recommended to hold sotalol for now till they evaluated the patient the morning. Stop the amiodarone at this time. High-risk for complications due to A. fib with RVR requiring intravenous medications to control heart rate. (2) PAF (paroxysmal atrial fibrillation) Current visit: Yes Status: Chronic Currently with rapid ventricular response. On anticoagulation with Coumadin. INR is therapeutic (3) CAD (coronary artery disease) Current visit: Yes Status: Chronic Continue home medications. No chest pain at this time. Qualifiers: Coronary Disease-Associated Artery/Lesion type: [place] artery [place] vs. transplanted heart: [place] heart Associated angina: without angina Qualified Code(s): I25.10 - Atherosclerotic heart disease of [place] coronary artery without angina pectoris (4) HTN (hypertension) Current visit: Yes Status: Chronic Blood pressure elevated on initial presentation. This has now improved. Continue home medications. Monitor blood pressure closely. Qualifiers: Hypertension type: essential hypertension Qualified Code(s): I10 - Essential (primary) hypertension Internal Medicine - H&P: HPI Chief complaint: Palpitations Admitted From: Emergency Dept Plans for Post Hospital Care: Home History of present illness: Ms. Barry is a 71 year old female patient with a history of A. fib on sotalol therapy presented to the ER with complaints of palpitations. Her symptoms started this evening while she was at home and multiple family members who are visiting her. She describes intense pounding in her chest. Denies any chest pain. No shortness of breath. Patient was started on sotalol last year after she was having bradycardic episodes while on Toprol-XL. She has been doing well since then and she says she has been in normal rhythm to her episode today. She follows up with cardiology here. She denies any dizziness or lightheadedness. In the ER, she was started on amiodarone drip with improvement in her heart rate. She is listed as being allergic to Cardizem and she reports that this was due to her heart rate significant bradycardia while receiving Cardizem. Past Med Surg Social Fam HX - Past Medical History Attestation: Yes The following information was validated with the patient. Source: patient Medical history: atrial fibrillation, CHF, coronary artery disease, GERD, hyperlipidemia, hypertension, myocardial infarction Psychiatric history: no psych history - Past Surgical History Surgical History: angioplasty/stent, cholecystectomy - Social History Smoking Status: Former smoker Smokeless Tobacco Status: No Alcohol use: none Drug use: none - Additional Family History Additional family history: Reviewed and found to be noncontributory at this time Internal Medicine - H&P: Meds Alendronate Sodium [Fosamax] 70 mg PO JUNIOR #0 01/12/15 [History] Cholecalciferol (Vitamin D3) [Vitamin D3] 2,000 unit PO DAILY 01/12/15 [History] Losartan [Cozaar] 50 mg PO DAILY 01/12/15 [History] Nitroglycerin [Nitrostat] 0.4 mg SL Q5-6MIN PRN 01/12/15 [History] Omeprazole [PriLOSEC] 40 mg PO DAILY 01/12/15 [History] Rosuvastatin [Crestor] 40 mg PO HS 01/12/15 [History] Clopidogrel [Plavix] 75 mg PO DAILY #30 tablet 01/13/15 [Rx] Calcium Carbonate/Vitamin D3 [Calcium 600 + Vit D Tablet] 1 tab PO DAILY [History] Multivitamin [One Daily Essential] 1 tab PO DAILY 07/14/16 [History] Sotalol [Betapace] 40 mg PO Q12H tablet 08/07/16 [Rx] Warfarin [Coumadin] 5 mg PO 1800 #30 tablet 08/07/16 [Rx] HYDROcodone/Acet 5/325 mg [[place] 5-325 mg] 1 tab PO Q4H PRN #10 tab 10/07/16 [Rx ] Promethazine [Phenergan] 12.5 mg PO Q8HR #8 tablet 10/07/16 [Rx] 3 Allergy/AdvReac Type Severity Reaction Status Date / Time codeine Allergy Vomiting Verified 07/13/16 23:18 diltiazem [From Cardizem] AdvReac See Verified 07/13/16 23:19 Comments Penicillins AdvReac Rash Verified 07/13/16 23:18 All Systems PM: A 10-system review of systems was performed and is negative for pertinent findings except as documented above in the HPI. - Constitutional Constitutional: no chills, no fever(s), no night sweats - EENT Eyes: no change in vision, no discharge, no pain, no photophobia Ears: no ear discharge, no ear pain, no tinnitus Nose, mouth and throat: no dysphagia, no nasal discharge, no neck pain, no sore throat - Cardiovascular Cardiovascular ROS IM: palpitations, no chest pain, no diaphoresis, no dyspnea, no lightheadedness, no syncope - Respiratory Respiratory: no cough, no dyspnea, no wheezing, no excessive phlegm production - Gastrointestinal Gastrointestinal: no abdominal pain, no diarrhea, no hematemesis, no hematochezia, no melena, no nausea, no vomiting - Genitourinary Genitourinary: no change in urinary stream, no dysuria, no flank pain, no hematuria - Musculoskeletal Musculoskeletal ROS IM: no numbness, no tingling - Integumentary Integumentary IM: no rash, no unusual bruising - Neurological Neurological ROS: no confusion, no convulsions, no focal weakness, no numbness, no tingling, no tremor(s) - Hematologic/Lymphatic Hematologic/Lymphatic: no easy bruising - Constitutional Vitals: Temp Pulse Resp BP Pulse Ox 98.1 F 120 18 143/98 94 03/17/17 23:41 03/17/17 23:41 03/17/17 23:41 03/17/17 23:41 03/17/17 23:41 General appearance: Present: cooperative, mild distress, A&O X 3, answers questions appropriately - Neck Neck exam general surgery: Present: supple, trachea midline. Absent: lymphadenopathy - Respiratory Respiratory exam: Present: CTAB. Absent: accessory muscle use, rales, rhonchi, wheezes - Cardiovascular Cardiovascular exam: Present: irregular rhythm, +S1, +S2, tachycardia. Absent: diastolic murmur, gallop, rubs, systolic murmur - GI/Abdominal GI/Abdominal exam: Present: normal bowel sounds, soft, no peritoneal signs. Absent: distended, tenderness - Extremities Exam Extremities exam: Present: warm, radial pulses palpable and symmetrical. Absent : calf tenderness, cyanotic, pedal edema - Neurological Exam Neurological exam: Present: CN II-XII intact, oriented X3, no focal deficits. Absent: facial droop, speech deficit - Skin Skin exam: Present: dry, intact Internal Med - H&P Results - Labs CBC & Chem 7: 03/17/17 22:01 03/17/17 22:01 - EKG Data -: EKG Interpreted by Myself - EKG Data EKG comments: 03/18/17 00:24 Atrial fibrillation with rapid ventricular response - Impressions Impressions Chest X-Ray 03/17/17 21:58 IMPRESSION: No acute cardiopulmonary process. D/ / Lux Becerril MD / Lux Becerril MD Interpreting Provider: Lux Becerril MD
[2017-03-18] MEDS ORDERED: Naloxone 0.4 MG/ML INJ IVP PRN (00:27)
[2017-03-18] MEDS ORDERED: Nitroglycerin 0.4 MG TAB.SUBL SL PRN (00:28)
[2017-03-18] MEDS ORDERED: *HR* HYDROcodone/Acet 5/325 mg TABLET PO PRN (00:28)
[2017-03-18] MEDS ORDERED: NON-FORMULARY MEDICATION 1 EACH EACH (Alendronate Sodium [Fosamax] 70 MG) PO SCH (00:30)
[2017-03-18 05:01] LABS: Basophils % 0.4 %; Eosinophils # 0.1 K/mcL (0.0-0.6); Eosinophils % 0.8 %; Hematocrit 36.6 % (35.3-44.9); Immature Granulocytes % 0.1 % (0-4); Lymphocytes # 2.6 K/mcL (0.6-4.6); Lymphocytes % 36.2 %; Mean Corpuscular HGB Conc 32.8 g/dL (31.6-35.5); Mean Corpuscular Hemoglobin 28.4 pg (28.0-33.3); Mean Corpuscular Volume 86.5 fL (83.0-100.0); Mean Platelet Volume 9.9 fL (9.4-12.4); Monocytes # 0.7 K/mcL (0.0-1.3); Monocytes % 9.2 %; Neutrophils # 3.9 K/mcL (1.6-8.9); Platelet Count 276 K/mcL (140-400); Red Blood Count 4.23 M/mcL (3.82-4.97); Red Cell Distribution Width 13.2 % (11.5-14.5); Segmented Neutrophils % 53.3 %
[2017-03-18 05:06] LABS: INR 2.6; Prothrombin Time 28.2 Seconds (9.4-12.1)
[2017-03-18 05:29] LABS: BUN/Creatinine Ratio 14 (6-26); Blood Urea Nitrogen 11 mg/dL (8-23); Calcium 8.8 mg/dL (8.6-10.3); Carbon Dioxide 25 mEq/L (23-29); Chloride 110 mEq/L (98-107); Glucose 119 mg/dL (70-105); Osmolality,Calculated 293 (280-300); Potassium 3.9 mEq/L (3.5-5.1); Sodium 141 mEq/L (136-145); eGFR For African Americans > 60 (> 60); eGFR For Non-African Americans > 60 (> 60)
[2017-03-18] MEDS: Cholecalciferol (D-3) 1,000 UNIT TABLET PO SCH (07:46)
[2017-03-18] MEDS: Multivit/Ca/Min/Fe/FA 1 TAB TABLET PO SCH (07:46)
[2017-03-18] MEDS: Calcium 600 + Vit D PO SCH (07:46)
--- NOTE | 2017-03-18 09:19 | Internal Med Progress Note ---
Date of Encounter: 03/18/17 Time of Encounter: 09:17 - Subjective Interval history: HPI: Ms. Barry is a 71 year old female patient with a history of A. fib on sotalol therapy who presented to the ER with complaints of palpitations. Her symptoms started this evening while she was at home and multiple family members who are visiting her. She describes intense pounding in her chest. Denies any chest pain. No shortness of breath. Patient was started on sotalol last year after she was having bradycardic episodes while on Toprol-XL. She has been doing well since then and she says she has been in normal rhythm to her episode today. She follows up with cardiology here. She denies any dizziness or lightheadedness. In the ER, she was started on amiodarone drip with improvement in her heart rate. She is listed as being allergic to Cardizem and she reports that this was due to her heart rate significant bradycardia while receiving Cardizem. Assessment and Plan (1) Atrial fibrillation with RVR Current visit: Yes Status: Acute Patient admitted for observation and a consult with cardiology. The on MD discussed her with Dr. Perez who recommended giving the patient intravenous Lopressor to control her heart rate as she has been allergic to Cardizem. He recommended to hold sotalol for now till they evaluated the patient the morning. Stop the amiodarone at this time. High-risk for complications due to A. fib with RVR requiring intravenous medications to control heart rate. Converted to NSR overnight. Cardiology recommend holding coumadin and await EP recommendations for Sunday--evaluate for need for PPM. (2) PAF (paroxysmal atrial fibrillation) Current visit: Yes Status: Chronic Currently with rapid ventricular response. On anticoagulation with Coumadin. INR is therapeutic. Held folowing cardiology consult for possible PPM placement Sunday (3) CAD (coronary artery disease) Continue home medications. No chest pain at this time. (4) HTN (hypertension) Current visit: Yes Status: Chronic Blood pressure elevated on initial presentation. This has now improved. Continue home medications. Monitor blood pressure closely. - Constitutional Vitals: Temp Pulse Resp BP Pulse Ox 98.4 F 52 16 129/65 94 03/18/17 07:26 03/18/17 07:52 03/18/17 07:26 03/18/17 07:26 03/18/17 07:26 General appearance: Present: cooperative, A&O X 3, pleasant, no acute distress, answers questions appropriately - Head Head exam: Present: atraumatic, normocephalic - Eye Eye exam: Present: EOMI, normal appearance, PERRL, conjuntiva pink, sclera anicteric. Absent: nystagmus, scleral icterus Pupils: Present: PERRL. Absent: fixed, irregular - Neck Neck exam general surgery: Present: supple, trachea midline. Absent: lymphadenopathy - Respiratory Respiratory exam: Present: CTAB. Absent: accessory muscle use, decreased breath sounds, rales, respiratory distress, rhonchi, stridor, wheezes, tachypnea - Cardiovascular Cardiovascular exam: Present: RRR, +S1, +S2. Absent: bradycardia, clicks, diastolic murmur, gallop, rubs, systolic murmur, tachycardia - GI/Abdominal GI/Abdominal exam: Present: normal bowel sounds, soft, no peritoneal signs. Absent: distended, tenderness - Extremities Exam Extremities exam: Present: warm, radial pulses palpable and symmetrical. Absent : calf tenderness, cyanotic, pedal edema - Neurological Exam Neurological exam: Present: CN II-XII intact, oriented X3, no focal deficits. Absent: pronater drift, facial droop, speech deficit - Skin Skin exam: Present: dry, intact Internal Medicine: Result - Labs CBC & Chem 7: 03/18/17 04:41 03/18/17 04:41 Labs: Short CBC 03/18/17 Range/Units 04:41 WBC 7.3 (4.3-11.1) K/mcL Hgb 12.0 (11.5-15.4) g/dL Hct 36.6 (35.3-44.9) % Plt Count 276 (140-400) K/mcL Neutrophils # 3.9 (1.6-8.9) K/mcL BMP 03/18/17 04:41 Sodium 141 Potassium 3.9 Chloride 110 H Carbon Dioxide 25 BUN 11 Creatinine 0.78 Glucose 119 H Calcium 8.8 Cardiac Enzymes 03/18/17 Range/Units 04:41 Troponin I 0.04 H* (< 0.04) ng/mL - ABG Interpretation ABG results: PT/INR, D-dimer PT 28.2 Seconds (9.4-12.1) H 03/18/17 04:41 Consult Discharge Plan - Plan Referrals: Jaime Swenson MD [Primary Care Provider] -
--- NOTE | 2017-03-18 11:08 | Cardiology Consult Note ---
<Laura Bowman Ryan - Last Filed: 03/18/17 13:19> Date of Encounter: 03/18/17 Time of Encounter: 10:30 Assessment and Plan (1) PAF (paroxysmal atrial fibrillation) Current Visit: Yes Status: Chronic Hx of PAF, started on Sotalol 40 mg BID in July 2016. Briefly on amiodarone in the ED, lopressor IV prn. Converted to NSR overnight. Upon exam, HR high 40's-50's. Discussed with Dr. Perez, recommend holding coumadin; hold sotalol for now, await EP recommendations for Sunday--evaluate for need for PPM. Anticoagulated on Coumadin--will hold. (2) Elevated troponin Current Visit: No Status: Acute Mild troponin elevation in the setting of atrial fibrillation with RVR. Patient denies chest pain/discomfort. Negative nuclear stress 06/2016. Continue statin and plavix. No asa d/t avoidance of triple therapy (on coumadin) . BB currently on hold d/t bradycardia. Discussion w patient/family: The assessment and plan as outlined above was discussed with the patient and/or family members who expressed understanding and agreement. All questions were answered. Thank you for involving us in the care of your patient. Please call with any questions. The patient will be discussed and reviewed with Dr. Perez; changes to be made accordingly. History of Present Illness Consult date: 03/18/17 Requesting physician: Cesar Briggs Consult reason: afib with RVR Chief complaint: Palpitations History of present illness: Ms. Barry is a 71 year old female with PMHx significant for CAD s/p PCI, Afib ( coumadin), and HTN who presented to the ED with complaints of palpitations. She reports she was playing card games with family when suddenly her heart began to race. Upon arrival to ED, she was found to be in atrial fibrillation with RVR. She was started on amiodarone briefly, and then was given IV lopressor. Upon exam today she is in NSR, HR high 40's-50's. Reports was started on sotalol in July 2016 and has tolerated the medication well, reports x2 episodes of palpitations since starting however lasted only minutes. Prior CV testing: Regadenoson nuclear 07/14/16: perfusion imaging negative for ischemia or infarct. [facility] 07/2014: left main normal. LAD proximal 75% stenosis - MARTIN placed, post stenting distal thrombosis v dissection treated with additional MARTIN. EF 65%. Circumflex proximal 30% stenosis. Ramus 40% stenosis. RCA mid and distal 30% stenoses. 08/15/2014: LVEF 60-65%. Normal LV, RV size and function. Valves not assessed. Holter monitor 07/2014: Baseline rhythm sinus. Occasional PACs and rare PVCs. Several episodes of SVT, likely atrial tachycardia. Past Med Surg Social Fam HX - Past Medical History Medical history: atrial fibrillation, coronary artery disease, GERD, hyperlipidemia, hypertension, myocardial infarction Psychiatric history: no psych history - Past Surgical History Surgical History: angioplasty/stent, cholecystectomy - Social History Smoking Status: Former smoker Smokeless Tobacco Status: No Alcohol use: none Drug use: none Medications and Allergies Alendronate Sodium [Fosamax] 70 mg PO JUNIOR #0 01/12/15 [History] Cholecalciferol (Vitamin D3) [Vitamin D3] 2,000 unit PO DAILY 01/12/15 [History] Losartan [Cozaar] 50 mg PO DAILY 01/12/15 [History] Nitroglycerin [Nitrostat] 0.4 mg SL Q5-6MIN PRN 01/12/15 [History] Omeprazole [PriLOSEC] 40 mg PO DAILY 01/12/15 [History] Rosuvastatin [Crestor] 40 mg PO HS 01/12/15 [History] Clopidogrel [Plavix] 75 mg PO DAILY #30 tablet 01/13/15 [Rx] Calcium Carbonate/Vitamin D3 [Calcium 600 + Vit D Tablet] 1 tab PO DAILY [History] Multivitamin [One Daily Essential] 1 tab PO DAILY 07/14/16 [History] Sotalol [Betapace] 40 mg PO Q12H tablet 08/07/16 [Rx] Warfarin [Coumadin] 4 mg PO Q48H 03/18/17 [History] Warfarin [Coumadin] 4.5 mg PO Q48H 03/18/17 [History] 3 Allergy/AdvReac Type Severity Reaction Status Date / Time codeine Allergy Vomiting Verified 03/18/17 12:14 diltiazem [From Cardizem] AdvReac See Verified 03/18/17 12:14 Comments Penicillins AdvReac Rash Verified 03/18/17 12:14 All Systems Review: A 10-system review of systems was performed and is negative for pertinent findings except as documented above in the HPI. - Cardiovascular Cardiovascular: as per HPI Physical Examination Vital Signs, Last 4 Hours Temp Pulse Resp BP Pulse Ox 03/18/17 07:52 52 03/18/17 07:26 98.4 F 67 16 129/65 94 General: Conversant, No Apparent Distress HEENT: Atraumatic, Normocephaly, Mucus Membranes Moist Neck: No JVD, Normal carotid pulses Cardiac: Reg Rate and Rhythm, Normal S1 and S2, No Murmur Lungs: Normal Breath Sounds, No Wheeze, Rales, Rhonchi Neuro: Alert and responsive, No focal deficits noted Abdomen: Soft, Non-Tender Skin: No rashes noted on visualized skin Musculoskeletal: No Chest Wall Tenderness Extremities: No Clubbing, No Cyanosis, No Edema, Normal Pulses Results 03/18/17 04:41 03/18/17 04:41 Lab Results 03/18/17 03/18/17 03/18/17 04:41 04:41 04:41 WBC 7.3 Hgb 12.0 Hct 36.6 Plt Count 276 INR 2.6 Sodium 141 Potassium 3.9 Chloride 110 H Carbon Dioxide 25 BUN 11 Creatinine 0.78 Glucose 119 H Calcium 8.8 Troponin I 03/18/17 04:41 WBC Hgb Hct Plt Count INR Sodium Potassium Chloride Carbon Dioxide BUN Creatinine Glucose Calcium Troponin I 0.04 H* Active Medications Hydrocodone Bitart/Acetaminophen ([place] 5-325 Mg) 1 tab PO Q4H PRN PRN Reason: Pain Stop: 09/17/17 00:29 Clopidogrel Bisulfate (Plavix) 75 mg PO DAILY [facility] Stop: 09/17/17 09:01 Last Admin: 03/18/17 07:45 Dose: 75 mg Losartan Potassium (Cozaar) 50 mg PO DAILY [facility] PRN Reason: Protocol Stop: 09/17/17 09:01 Last Admin: 03/18/17 07:45 Dose: 50 mg Metoprolol Tartrate (Lopressor) 5 mg IVP Q6HR PRN PRN Reason: Tachyarrhythmias Stop: 09/16/17 23:22 Last Admin: 03/18/17 00:26 Dose: 5 mg Multivitamins/Calcium (Thera M Plus) 1 tab PO DAILY [facility] Stop: 09/17/17 09:01 Last Admin: 03/18/17 07:46 Dose: 1 tab Naloxone HCl (Narcan) 0.4 mg IVP Q2MIN PRN PRN Reason: Opioid Reversal Stop: 09/17/17 00:28 Nitroglycerin (Nitroglycerin) 0.4 mg SL Q5MIN PRN PRN Reason: CHEST PAIN Stop: 09/17/17 00:29 Omeprazole (Prilosec) 40 mg PO 0630 [facility] Stop: 09/17/17 06:31 Last Admin: 03/18/17 04:02 Dose: Not Given Pharmacy Profile Note (Patient Taking Own Medication) 1 each PO DAILY [facility] Stop: 09/17/17 09:01 Last Admin: 03/18/17 07:46 Dose: Not Given Promethazine HCl (Phenergan) 12.5 mg PO Q8HR [facility] Stop: 09/17/17 08:01 Last Admin: 03/18/17 07:45 Dose: 12.5 mg Rosuvastatin Calcium (Crestor) 40 mg PO HS [facility] Stop: 09/17/17 21:01 Vitamin D (Vitamin D) 1,000 unit PO DAILY [facility] Stop: 09/17/17 09:01 Last Admin: 03/18/17 07:46 Dose: 1,000 unit Warfarin Sodium (Coumadin Perpt) 1 each PO DAILY@1800 PRN PRN Reason: SEE COMMENTS Stop: 09/17/17 18:01 Warfarin Sodium (Coumadin) 4 mg PO 1800 ONE Stop: 03/18/17 18:01 - Imaging and Cardiology Stress Test: report reviewed Echo: report reviewed Cardiac cath: report reviewed Other Results: 12 hour tele: avg HR=68 SR. Min=40. - EKG Interpretation EKG results cardiology: personally reviewed Consult Discharge Plan - Plan Referrals: Jaime Swenson MD [Primary Care Provider] - <Jasbir Perez - Last Filed: 03/19/17 01:12> Date of Encounter: 03/18/17 Time of Encounter: 20:35 - Attending Attestation I have personally performed a face to face evaluation on this patient. I have reviewed and agree with the care plan. History and Exam by me shows: CC: Palpitations Pt reports at rest playing cards when experienced sensation of her heart racing and skipping, Initial event lasted several minutes of her heart pounding, then slowed down to just racing. She has known A fib with RVR, however has maintained NSR on sotalol over the last several months until this event. She reports she is compliant with medication timing and dosing. She did not experience chest pain, pressure or diaphoresis with this event. She was started on IV aminodarone without significant slowing of heart rate in ER, but did respond to IV metoprolol tartrate. She returned to NSR and has maintained since. PE: reviewed PE above, agree, IMP: 1. Tachy jackelyn syndrome, resting heartrate now in the high forties and low fifties, too slow to resume sotalol, will continue off sotalol, discuss with Dr. Sky Fall whom she follows with as an outpatient, suspect will need stronger beta blockade, but will require PPMK before resume tx due to bradycardia at rest. continue to monitor, NPO at midnight for potential procedure in AM. Assessment and Plan Discussion w patient/family: The assessment and plan as outlined above was discussed with the patient and/or family members who expressed understanding and agreement. All questions were answered. Thank you for involving us in the care of your patient. Please call with any questions. History of Present Illness History of present illness: Ms. Barry is a 71 year old female All Systems Review: A 10-system review of systems was performed and is negative for pertinent findings except as documented above in the HPI. Physical Examination Vital Signs, Last 4 Hours Temp Pulse Resp BP Pulse Ox 03/19/17 00:10 98.7 F 58 16 151/61 96 03/18/17 21:35 58 16 97 Results 03/18/17 04:41 03/18/17 04:41 Lab Results 03/18/17 03/18/17 03/18/17 04:41 04:41 04:41 WBC 7.3 Hgb 12.0 Hct 36.6 Plt Count 276 INR 2.6 Sodium 141 Potassium 3.9 Chloride 110 H Carbon Dioxide 25 BUN 11 Creatinine 0.78 Glucose 119 H Calcium 8.8 Troponin I 03/18/17 04:41 WBC Hgb Hct Plt Count INR Sodium Potassium Chloride Carbon Dioxide BUN Creatinine Glucose Calcium Troponin I 0.04 H*
[2017-03-18] MEDS ORDERED: Warfarin perPT PO PRN (18:00)
[2017-03-18] MEDS ORDERED: *HR* Warfarin 4 MG TABLET PO ONE (18:00)
[2017-03-19 03:55] LABS: INR 2.1; Prothrombin Time 23.2 Seconds (9.4-12.1)
[2017-03-19 07:21] LABS: Basophils % 0.4 %; Eosinophils # 0.1 K/mcL (0.0-0.6); Eosinophils % 2.3 %; Hematocrit 36.7 % (35.3-44.9); Hemoglobin 12.1 g/dL (11.5-15.4); Immature Granulocytes % 0.2 % (0-4); Lymphocytes # 2.1 K/mcL (0.6-4.6); Lymphocytes % 37.6 %; Mean Corpuscular Hemoglobin 28.8 pg (28.0-33.3); Mean Corpuscular Volume 87.4 fL (83.0-100.0); Monocytes # 0.5 K/mcL (0.0-1.3); Monocytes % 9.4 %; Neutrophils # 2.8 K/mcL (1.6-8.9); Platelet Count 280 K/mcL (140-400); Red Cell Distribution Width 13.2 % (11.5-14.5); Segmented Neutrophils % 50.1 %
[2017-03-19] MEDS: Cholecalciferol (D-3) 1,000 UNIT TABLET PO SCH (07:55)
[2017-03-19] MEDS: Calcium 600 + Vit D PO SCH (07:56)
[2017-03-19] MEDS: Multivit/Ca/Min/Fe/FA 1 TAB TABLET PO SCH (07:56)
[2017-03-19 09:52] LABS: BUN/Creatinine Ratio 15 (6-26); Blood Urea Nitrogen 12 mg/dL (8-23); Calcium 8.9 mg/dL (8.6-10.3); Carbon Dioxide 24 mEq/L (23-29); Chloride 108 mEq/L (98-107); Glucose 106 mg/dL (70-105); Osmolality,Calculated 286 (280-300); Sodium 138 mEq/L (136-145); eGFR For African Americans > 60 (> 60); eGFR For Non-African Americans > 60 (> 60)
--- NOTE | 2017-03-19 11:24 | Electrophysiology Consult Note ---
<Zhen Smalls - Last Filed: 03/19/17 11:24> Date of Encounter: 03/19/17 Time of Encounter: 11:20 Assessment and Plan (1) Atrial fibrillation with RVR Status: Acute Per EP: Known history of paroxysmal atrial fibrillation. Has been on sotalol 40 mg by mouth twice a day since July 2016. Now back in sinus rhythm. Will resume sotalol 40mg GEORGE BID. Patient appears to be stable and with known history of bradycardia in the 40s to 60s. Will not increase dose. If has relapse of A. fib with RVR may need sotalol washout and initiation of a different agent. Discussed and reviewed with Dr. Sky Fall. Will sign off, reconsult as needed , follow-up scheduled. Patient agrees with plan, all questions answered. Regarding long-term anticoagulation, on Coumadin. INR 2.1. Will resume. (2) Demand ischemia Status: Acute Per EP: Mild trop 0.04 deemed demand ischemia d/t afib RVR. CP free. (3) Bradycardia Status: Chronic Per EP: Known history of bradycardia with heart rates in the 40s at last office visit. Average heart rate the past 12 hours 52 with lowest heart rate 44 during nocturnal hours. No significant pauses noted or events. Patient is symptomatically. Discussed and reviewed with Dr. Sky Fall, no recommendations for pacer at this juncture. Discussion w patient/family: The assessment and plan as outlined above was discussed with the patient and/or family members who expressed understanding and agreement. All questions were answered. Thank you for involving us in the care of your patient. Please call with any questions. History of Present Illness Consult date: 03/19/17 Requesting physician: Jasbir Perez Consult reason: SB, afib Chief complaint: palps History of present illness: Previous records reviewed: "Ms. Barry is a 71 year old female with PMHx significant for CAD s/p PCI, Afib ( coumadin), and HTN who presented to the ED with complaints of palpitations. She reports she was playing card games with family when suddenly her heart began to race. Upon arrival to ED, she was found to be in atrial fibrillation with RVR. She was started on amiodarone briefly, and then was given IV lopressor. Upon exam today she is in NSR, HR high 40's-50's. Reports was started on sotalol in July 2016 and has tolerated the medication well, reports x2 episodes of palpitations since starting however lasted only minutes. Prior CV testing: Regadenoson nuclear 07/14/16: perfusion imaging negative for ischemia or infarct. [facility] 07/2014: left main normal. LAD proximal 75% stenosis - MARTIN placed, post stenting distal thrombosis v dissection treated with additional MARTIN. EF 65%. Circumflex proximal 30% stenosis. Ramus 40% stenosis. RCA mid and distal 30% stenoses. 08/15/2014: LVEF 60-65%. Normal LV, RV size and function. Valves not assessed. Holter monitor 07/2014: Baseline rhythm sinus. Occasional PACs and rare PVCs. Several episodes of SVT, likely atrial tachycardia". EP consult d/t concerns of bradycardia. Patient confirms has been stable home with sotalol dosing since August 2016 and this is first significant recurrence of A. fib to her awareness. She reports increased stress recently with in January 2017 and recent upper respiratory infection with cough. She reports heart rates at home typically in the 40s to 60s and denies any dizziness, syncope, falls. She denies any dizziness, chest pain, palpitations. She reports current plans with Coumadin and denies any active bleeding or blood loss. Past Med Surg Social Fam HX - Past Medical History Attestation: Yes The following information was validated with the patient. Source: patient, old records reviewed, obtained from family Medical history: atrial fibrillation, coronary artery disease, GERD, hyperlipidemia, hypertension, myocardial infarction Psychiatric history: no psych history - Past Surgical History Surgical History: angioplasty/stent, cholecystectomy - Social History Smoking Status: Former smoker Smokeless Tobacco Status: No Alcohol use: none Drug use: none Medications and Allergies Alendronate Sodium [Fosamax] 70 mg PO JUNIOR #0 01/12/15 [History] Cholecalciferol (Vitamin D3) [Vitamin D3] 2,000 unit PO DAILY 01/12/15 [History] Losartan [Cozaar] 50 mg PO DAILY 01/12/15 [History] Nitroglycerin [Nitrostat] 0.4 mg SL Q5-6MIN PRN 01/12/15 [History] Omeprazole [PriLOSEC] 40 mg PO DAILY 01/12/15 [History] Rosuvastatin [Crestor] 40 mg PO HS 01/12/15 [History] Clopidogrel [Plavix] 75 mg PO DAILY #30 tablet 01/13/15 [Rx] Calcium Carbonate/Vitamin D3 [Calcium 600 + Vit D Tablet] 1 tab PO DAILY [History] Multivitamin [One Daily Essential] 1 tab PO DAILY 07/14/16 [History] Sotalol [Betapace] 40 mg PO Q12H tablet 08/07/16 [Rx] Warfarin [Coumadin] 4 mg PO Q48H 03/18/17 [History] Warfarin [Coumadin] 4.5 mg PO Q48H 03/18/17 [History] 3 Allergy/AdvReac Type Severity Reaction Status Date / Time codeine Allergy Vomiting Verified 03/18/17 12:14 diltiazem [From Cardizem] AdvReac See Verified 03/18/17 12:14 Comments Penicillins AdvReac Rash Verified 03/18/17 12:14 All Systems Review: A 10-system review of systems was performed and is negative for pertinent findings except as documented above in the HPI. - Cardiovascular Cardiovascular: as per HPI, palpitations Physical Examination Selected Entries 03/19/17 07:03 03/19/17 07:30 Temperature 98.3 F Pulse Rate 57 Respiratory Rate 18 Blood Pressure 151/69 O2 Sat by Pulse Oximetry 98 Oxygen Delivery Method Room Air General: Conversant, No Apparent Distress HEENT: Atraumatic, Normocephaly, Mucus Membranes Moist Neck: No JVD, Normal carotid pulses Cardiac: Reg Rate and Rhythm, Normal S1 and S2, No Murmur Lungs: Normal Breath Sounds, No Wheeze, Rales, Rhonchi Neuro: Alert and responsive, No focal deficits noted Abdomen: Soft, Non-Tender Skin: No rashes noted on visualized skin Musculoskeletal: No Chest Wall Tenderness Extremities: No Clubbing, No Cyanosis, No Edema, Normal Pulses Results 03/19/17 06:34 03/19/17 06:34 Lab Results 03/19/17 03/19/17 03/19/17 02:55 06:34 06:34 WBC 5.6 Hgb 12.1 Hct 36.7 Plt Count 280 INR 2.1 Sodium 138 Potassium 4.0 Chloride 108 H Carbon Dioxide 24 BUN 12 Creatinine 0.79 Glucose 106 H Calcium 8.9 - Imaging and Cardiology Stress Test: report reviewed Echo: report reviewed Cardiac cath: report reviewed - EKG Interpretation EKG results cardiology: other (Tele shows avg HR past 12 hrs 52, lowest HR 44 during nocturnal hrs, no significant eventas or pauses noted) Consult Discharge Plan - Plan Instructions: Atrial Fibrillation (DC) Referrals: Jaime Swenson MD [Primary Care Provider] - 03/28/17 10:15 am Zhen Smalls CNP [Advanced Practice Nurse] - (OFFICE WILL CALL WITH FOLLOWUP) <Sky Fall - Last Filed: 03/19/17 16:16> Date of Encounter: 03/19/17 - Attending Attestation I have personally performed a face to face evaluation on this patient. I have reviewed and agree with the care plan. History and Exam by me shows: Recurrent PAF on sotalol. Has only had one recurrent episode on over 6 months. Options are continue the current regimen, switch to an alternate antiarrythmic , pacemaker with increasing dose of sotalol or AF ablation. At this time she would like to continue her current regimen. Assessment and Plan Discussion w patient/family: The assessment and plan as outlined above was discussed with the patient and/or family members who expressed understanding and agreement. All questions were answered. Thank you for involving us in the care of your patient. Please call with any questions. History of Present Illness History of present illness: Ms. Barry is a 71 year old female All Systems Review: A 10-system review of systems was performed and is negative for pertinent findings except as documented above in the HPI. Results 03/19/17 06:34 03/19/17 06:34 Lab Results 03/19/17 03/19/17 03/19/17 02:55 06:34 06:34 WBC 5.6 Hgb 12.1 Hct 36.7 Plt Count 280 INR 2.1 Sodium 138 Potassium 4.0 Chloride 108 H Carbon Dioxide 24 BUN 12 Creatinine 0.79 Glucose 106 H Calcium 8.9
[2017-03-19 11:47] VITALS: BP 165/54
--- NOTE | 2017-03-19 12:43 | Discharge Summary ---
Date of Encounter: 03/19/17 Time of Encounter: 12:33 - Discharge Medications Home Medications: Alendronate Sodium [Fosamax] 70 mg PO JUNIOR #0 01/12/15 [History] Cholecalciferol (Vitamin D3) [Vitamin D3] 2,000 unit PO DAILY 01/12/15 [History] Losartan [Cozaar] 50 mg PO DAILY 01/12/15 [History] Nitroglycerin [Nitrostat] 0.4 mg SL Q5-6MIN PRN 01/12/15 [History] Omeprazole [PriLOSEC] 40 mg PO DAILY 01/12/15 [History] Rosuvastatin [Crestor] 40 mg PO HS 01/12/15 [History] Clopidogrel [Plavix] 75 mg PO DAILY #30 tablet 01/13/15 [Rx] Calcium Carbonate/Vitamin D3 [Calcium 600 + Vit D Tablet] 1 tab PO DAILY [History] Multivitamin [One Daily Essential] 1 tab PO DAILY 07/14/16 [History] Sotalol [Betapace] 40 mg PO Q12H tablet 08/07/16 [Rx] Warfarin [Coumadin] 4 mg PO Q48H 03/18/17 [History] Warfarin [Coumadin] 4.5 mg PO Q48H 03/18/17 [History] Allergies/Adverse Reactions: 3 Allergy/AdvReac Type Severity Reaction Status Date / Time codeine Allergy Vomiting Verified 03/18/17 12:14 diltiazem [From Cardizem] AdvReac See Verified 03/18/17 12:14 Comments Penicillins AdvReac Rash Verified 03/18/17 12:14 Procedures/tests Complete & Pending: Procedures Performed prior 72 hours Category Date Time Status ECG 12 lead ECG [ECG] Routine Y 03/17/17 22:24 Completed Date of admission: 03/17/17 23:18 Primary care physician: Jaime Swenson MD Consults: 03/17/17 23:22 Consult to Cardiology [CONS] Routine Comment: Consulting Provider: [facility] [place] Reason for Consult: Afib with RVR Call Completed: Yes 03/19/17 10:06 Consult to Electrophysiology (EP) [CONS] Routine Consulting Provider: Electrophys[facility] [place] Reason for Consult: bradycardia, antiarrhythmics Call Completed: Yes Discharging clinician: Jose Luis Merida - Patient Status Disposition: Home, Self-Care Condition: Good - Discharge Instructions Instructions: Atrial Fibrillation (DC) Follow Up With: Jaime Swenson MD [Primary Care Provider] - 03/28/17 10:15 am Zhen Smalls CNP [Advanced Practice Nurse] - (OFFICE WILL CALL WITH FOLLOWUP) Hospital course: Hospital Course: Ms. Barry is a 71 year old female patient with a history of A. fib on sotalol therapy who presented to the ER with complaints of palpitations. Her symptoms started this evening while she was at home and multiple family members who are visiting her. She describes intense pounding in her chest. Denies any chest pain. No shortness of breath. Patient was started on sotalol last year after she was having bradycardic episodes while on Toprol-XL. She has been doing well since then and she says she has been in normal rhythm to her episode today. In the ER, she was started on amiodarone drip with improvement in her heart rate and she converted to NSR by morning. Amiodarone was discontined by cardiology and sotalol resumed at 40mg GEORGE BID. Patient appears to be stable and with known history of bradycardia in the 40s to 60s. Cardiology advicednot increaing hher dose of Sotolol and if she should have a relapse of A. fib with RVR cardiology will consider a sotalol washout and initiation of a different agent. Se was discharged to home in NSR and in stable condition Assessment and Plan (1) Atrial fibrillation with RVR Current visit: Yes Status: Acute No PPMwas rewuired and her Sotolol restartedat the previous dose.Her Coumadin was at a therepeuticlevel (2) PAF (paroxysmal atrial fibrillation) Current visit: Yes Status: Chronic Currently with rapid ventricular response. On anticoagulation with Coumadin. INR is therapeutic. (3) CAD (coronary artery disease) Continue home medications. No chest pain at this time. (4) HTN (hypertension) Current visit: Yes Status: Chronic Blood pressure elevated on initial presentation. This has now improved. Continue home medications. Monitor blood pressure closely. - Constitutional Vitals: Temp Pulse Resp BP Pulse Ox 98.4 F 52 16 129/65 94 03/18/17 07:26 03/18/17 07:52 03/18/17 07:26 03/18/17 07:26 03/18/17 07:26 General appearance: Present: cooperative, A&O X 3, pleasant, no acute distress, answers questions appropriately - Head Head exam: Present: atraumatic, normocephalic - Eye Eye exam: Present: EOMI, normal appearance, PERRL, conjuntiva pink, sclera anicteric. Absent: nystagmus, scleral icterus Pupils: Present: PERRL. Absent: fixed, irregular - Neck Neck exam general surgery: Present: supple, trachea midline. Absent: lymphadenopathy - Respiratory Respiratory exam: Present: CTAB. Absent: accessory muscle use, decreased breath sounds, rales, respiratory distress, rhonchi, stridor, wheezes, tachypnea - Cardiovascular Cardiovascular exam: Present: RRR, +S1, +S2. Absent: bradycardia, clicks, diastolic murmur, gallop, rubs, systolic murmur, tachycardia - GI/Abdominal GI/Abdominal exam: Present: normal bowel sounds, soft, no peritoneal signs. Absent: distended, tenderness - Extremities Exam Extremities exam: Present: warm, radial pulses palpable and symmetrical. Absent : calf tenderness, cyanotic, pedal edema - Neurological Exam Neurological exam: Present: CN II-XII intact, oriented X3, no focal deficits. Absent: pronater drift, facial droop, speech deficit - Skin Skin exam: Present: dry, intact Time spent discussing smoking cessation with patient: more than 10 minutes - Time Spent with Patient Total time spent providing and/or coordinating discharge services: Greater than 30 minutes - Constitutional Vitals: Temp Pulse Resp BP Pulse Ox 97.7 F 55 20 165/54 98 03/19/17 11:45 03/19/17 11:45 03/19/17 11:45 03/19/17 11:45 03/19/17 11:45 General appearance: Present: cooperative, A&O X 3, pleasant, no acute distress, answers questions appropriately
[2017-03-19] MEDS ORDERED: Warfarin perPT PO PRN (18:00)
[2017-03-19] MEDS ORDERED: *HR* Warfarin 4 MG TABLET PO ONE (18:00)
--- NOTE | 2017-03-20 17:19 | Electrocardiograph Report ---
[place] [id number] Test Date: 2017-03-17 Pat Name: Viviana Barry Department: 104 Room: 2N14 Gender: F Coper Hand: EKP : 1945 Requested By: Nishi See Order Number: [id number] Reading MD: Sky Fall Measurements Intervals [place] Rate: 157 P: ME: 0 QRS: 6 QRSD: 79 T: 129 QT: 296 QTc: 384 Interpretive Statements ATRIAL FIBRILLATION WITH RAPID VENTRICULAR RESPONSE NONSPECIFIC ST & T-WAVE ABNORMALITY Electronically Signed On 03-20-2017 17:17:51 EST by Sky Fall
--- NOTE | 2017-03-20 17:20 | Electrocardiograph Report ---
[address] [place], [place] [address] Test Date: 2017-03-17 Pat Name: Viviana Barry Department: 104 Room: 2N14 Gender: F Cut Off Saw Operator: EKP : 1945 Requested By: Olivia Mullen Order Number: [id number] Reading MD: Sky Fall Measurements Intervals [place] Rate: 144 P: AL: 0 QRS: 8 QRSD: 73 T: 35 QT: 252 QTc: 335 Interpretive Statements ATRIAL FIBRILLATION WITH RAPID VENTRICULAR RESPONSE LOW QRS VOLTAGE IN PRECORDIAL LEADS POSSIBLE RIGHT VENTRICULAR CONDUCTION DELAY PROBABLE SEPTAL MYOCARDIAL INFARCTION, OF INDETERMINATE AGE Electronically Signed On 03-20-2017 17:18:20 EST by Sky Fall
== END 2017-03-19 13:19 | disposition home or self-care (01) ==
LOC: 2NNU 21:32 → EMEROO 21:32 → 2NNU 23:29
PROVIDERS: ADMIT Internal Medicine Hematology & Oncology; ATTEND Internal Medicine

== ENCOUNTER 2018-09-11 09:03 | Observation (INO) ==
[2018-09-11] MEDS ORDERED: 0.9 % Sodium Chloride 1,000 ML IVC ONE (09:10)
[2018-09-11] MEDS ORDERED: *HR* Metoprolol 5 MG/5 ML VIAL IVP ONE (09:10)
[2018-09-11] MEDS ORDERED: Aspirin 325 MG TABLET PO ONE (09:10)
--- NOTE | 2018-09-11 09:24 | Emergency Department Note ---
Disposition Clinical Impression: Atrial fibrillation with RVR Atrial fibrillation Qualifiers: Atrial fibrillation type: chronic Qualified Code(s): I48.2 - Chronic atrial fibrillation Disposition: Admitted As Inpatient Condition: Good Time of Disposition: 14:02 General Adult HPI - General Chief complaint: ED Arrhythmia/Palpitations Stated complaint: rapid heart rate Time Seen by Provider: 09/11/18 09:04 Source: patient, EMS Limitations: no limitations - History of Present Illness Pain Scale: 8 - Related Data Home Medications Medication Instructions Recorded Confirmed Alendronate Sodium [Fosamax] 70 mg PO QWEEK 09/11/18 09/11/18 Cholecalciferol (D-3) [Vitamin D] 2,000 unit PO DAILY 09/11/18 09/11/18 Losartan Potassium [Cozaar] 50 mg PO DAILY 09/11/18 09/11/18 Multivit-Min/Iron/Folic Acid/K 1 tab PO DAILY 09/11/18 09/11/18 [Adults Multivitamin Tablet] Nitroglycerin [Nitrostat] 0.4 mg SL PRN PRN 09/11/18 09/11/18 Omeprazole [PriLOSEC] 40 mg PO DAILY 09/11/18 09/11/18 Rosuvastatin Calcium [Crestor] 40 mg PO DAILY 09/11/18 09/11/18 Warfarin Sodium 1 mg PO DAILY 09/11/18 09/11/18 Warfarin Sodium 4 mg PO DAILY 09/11/18 09/11/18 Previous Rx's Medication Instructions Recorded Sotalol [Betapace] 40 mg PO Q12H tablet 08/07/16 Allergies Allergy/AdvReac Type Severity Reaction Status Date / Time codeine Allergy Vomiting Verified 04/18/18 13:47 diltiazem [From Cardizem] AdvReac See Verified 04/18/18 13:47 Comments Past Medical History - Past Medical History Medical history: Reports: atrial fibrillation, coronary artery disease, GERD, hyperlipidemia, hypertension, myocardial infarction Surgical history: Reports: angioplasty/stent, cholecystectomy Psychiatric history: Reports: no psych history CYCLE DIRECTOR history: Reports: no CYCLE DIRECTOR history - Social History Smoking Status: Former smoker Smokeless Tobacco Status: No Alcohol use: Reports: none Drug use: Reports: none Physical Exam - General Limitations: no limitations General appearance: alert, in no apparent distress Course Vital Signs Temperature 98.7 F 09/11/18 09:11 Pulse Rate 135 09/11/18 09:11 Respiratory Rate 16 09/11/18 09:11 Blood Pressure 158/94 09/11/18 09:11 O2 Sat by Pulse Oximetry 97 09/11/18 09:11 Temperature 98.6 F 09/11/18 13:17 Pulse Rate 53 09/11/18 13:17 Respiratory Rate 16 09/11/18 13:17 Blood Pressure 140/54 09/11/18 13:17 O2 Sat by Pulse Oximetry 97 09/11/18 13:17 Oxygen Delivery Oxygen Delivery Room Air Medical Decision Making - Lab Data Result diagrams: 09/11/18 09:19 09/11/18 09:19 Lab Results 09/11/18 09/11/18 09/11/18 Range/Units 09:19 09:19 09:19 WBC 6.3 (4.3-11.1) K/mcL RBC 4.52 (3.82-4.97) M/mcL Hgb 13.1 (11.5-15.4) g/dL Hct 40.2 (35.3-44.9) % MCV 88.9 (83.0-100.0) fL MCH 29.0 (28.0-33.3) pg MCHC 32.6 (31.6-35.5) g/dL RDW 12.6 (11.5-14.5) % Plt Count 286 (140-400) K/mcL MPV 10.3 (9.4-12.4) fL Immature Gran % 0.2 (0-4) % Seg Neutrophils % 61.4 % Lymphocytes % 28.6 % Monocytes % 8.5 % Eosinophils % 0.8 % Basophils % 0.5 % Neutrophils # 3.8 (1.6-8.9) K/mcL Lymphocytes # 1.8 (0.6-4.6) K/mcL Monocytes # 0.5 (0.0-1.3) K/mcL Eosinophils # 0.1 (0.0-0.6) K/mcL Basophils # 0.0 (0.0-0.2) K/mcL PT 18.8 H (9.4-12.1) Seconds INR 1.7 APTT 37.2 H (26.0-36.0) Seconds Heparin Anti-Xa, Unfract (0.30-0.70) IU/mL Sodium 144 (136-145) mEq/L Potassium 4.2 (3.5-5.1) mEq/L Chloride 106 (98-107) mEq/L Carbon Dioxide 23 (23-29) mEq/L BUN 11 (8-23) mg/dL Creatinine 0.96 (0.60-1.20) mg/dL Est GFR ( Amer) > 60 (> 60) Est GFR (Non-Af Amer) 57 L (> 60) BUN/Creatinine Ratio 11 (6-26) Glucose 138 H (70-105) mg/dL Calculated Osmolality 300 (280-300) Calcium 9.8 (8.6-10.3) mg/dL Phosphorus (2.7-4.5) mg/dL Magnesium 2.2 (1.6-2.6) mg/dL Troponin I < 0.03 (< 0.04) ng/mL B-Natriuretic Peptide (Less than 100) pg/mL TSH 2.314 (0.340-5.600) mcIU/mL Urine Color (Yellow) Urine Clarity (Clear) Urine pH (5.0-8.0) pH Units Ur Specific [place] (1.010-1.025) Urine Protein (Neg-Trace) mg/dL Urine Glucose (UA) (Normal) mg/dL Urine Ketones (Negative) mg/dL Urine Blood (Negative) Urine Nitrite (Negative) Urine Bilirubin (Negative) Urine Urobilinogen (Normal) mg/dL Ur Leukocyte Esterase (Negative) Urine Microscopic RBC (0-3) per hpf Urine Microscopic WBC (0-3) per hpf Ur Squamous Epith Cells (None-Few) per lpf Urine Bacteria (None-Few) per hpf Hyaline Casts (None-Few) per lpf Ur Culture Indicated? (NO) 09/11/18 09/11/18 09/11/18 Range/Units 09:26 09:39 11:09 WBC (4.3-11.1) K/mcL RBC (3.82-4.97) M/mcL Hgb (11.5-15.4) g/dL Hct (35.3-44.9) % MCV (83.0-100.0) fL MCH (28.0-33.3) pg MCHC (31.6-35.5) g/dL RDW (11.5-14.5) % Plt Count (140-400) K/mcL MPV (9.4-12.4) fL Immature Gran % (0-4) % Seg Neutrophils % % Lymphocytes % % Monocytes % % Eosinophils % % Basophils % % Neutrophils # (1.6-8.9) K/mcL Lymphocytes # (0.6-4.6) K/mcL Monocytes # (0.0-1.3) K/mcL Eosinophils # (0.0-0.6) K/mcL Basophils # (0.0-0.2) K/mcL PT (9.4-12.1) Seconds INR APTT (26.0-36.0) Seconds Heparin Anti-Xa, Unfract 0.00 L (0.30-0.70) IU/mL Sodium (136-145) mEq/L Potassium (3.5-5.1) mEq/L Chloride (98-107) mEq/L Carbon Dioxide (23-29) mEq/L BUN (8-23) mg/dL Creatinine (0.60-1.20) mg/dL Est GFR ( Amer) (> 60) Est GFR (Non-Af Amer) (> 60) BUN/Creatinine Ratio (6-26) Glucose (70-105) mg/dL Calculated Osmolality (280-300) Calcium (8.6-10.3) mg/dL Phosphorus (2.7-4.5) mg/dL Magnesium (1.6-2.6) mg/dL Troponin I (< 0.04) ng/mL B-Natriuretic Peptide 329 H (Less than 100) pg/mL TSH (0.340-5.600) mcIU/mL Urine Color Yellow (Yellow) Urine Clarity Clear (Clear) Urine pH 7.0 (5.0-8.0) pH Units Ur Specific [place] 1.013 (1.010-1.025) Urine Protein Negative (Neg-Trace) mg/dL Urine Glucose (UA) Normal (Normal) mg/dL Urine Ketones Negative (Negative) mg/dL Urine Blood Small H (Negative) Urine Nitrite Negative (Negative) Urine Bilirubin Negative (Negative) Urine Urobilinogen Normal (Normal) mg/dL Ur Leukocyte Esterase Trace H (Negative) Urine Microscopic RBC 5-15 H (0-3) per hpf Urine Microscopic WBC 3-5 H (0-3) per hpf Ur Squamous Epith Cells Few (None-Few) per lpf Urine Bacteria None Seen (None-Few) per hpf Hyaline Casts None Seen (None-Few) per lpf Ur Culture Indicated? YES A (NO) 09/11/18 Range/Units 12:27 WBC (4.3-11.1) K/mcL RBC (3.82-4.97) M/mcL Hgb (11.5-15.4) g/dL Hct (35.3-44.9) % MCV (83.0-100.0) fL MCH (28.0-33.3) pg MCHC (31.6-35.5) g/dL RDW (11.5-14.5) % Plt Count (140-400) K/mcL MPV (9.4-12.4) fL Immature Gran % (0-4) % Seg Neutrophils % % Lymphocytes % % Monocytes % % Eosinophils % % Basophils % % Neutrophils # (1.6-8.9) K/mcL Lymphocytes # (0.6-4.6) K/mcL Monocytes # (0.0-1.3) K/mcL Eosinophils # (0.0-0.6) K/mcL Basophils # (0.0-0.2) K/mcL PT (9.4-12.1) Seconds INR APTT (26.0-36.0) Seconds Heparin Anti-Xa, Unfract (0.30-0.70) IU/mL Sodium (136-145) mEq/L Potassium (3.5-5.1) mEq/L Chloride (98-107) mEq/L Carbon Dioxide (23-29) mEq/L BUN (8-23) mg/dL Creatinine (0.60-1.20) mg/dL Est GFR ( Amer) (> 60) Est GFR (Non-Af Amer) (> 60) BUN/Creatinine Ratio (6-26) Glucose (70-105) mg/dL Calculated Osmolality (280-300) Calcium (8.6-10.3) mg/dL Phosphorus 2.6 L (2.7-4.5) mg/dL Magnesium 2.0 (1.6-2.6) mg/dL Troponin I < 0.03 (< 0.04) ng/mL B-Natriuretic Peptide (Less than 100) pg/mL TSH (0.340-5.600) mcIU/mL Urine Color (Yellow) Urine Clarity (Clear) Urine pH (5.0-8.0) pH Units Ur Specific [place] (1.010-1.025) Urine Protein (Neg-Trace) mg/dL Urine Glucose (UA) (Normal) mg/dL Urine Ketones (Negative) mg/dL Urine Blood (Negative) Urine Nitrite (Negative) Urine Bilirubin (Negative) Urine Urobilinogen (Normal) mg/dL Ur Leukocyte Esterase (Negative) Urine Microscopic RBC (0-3) per hpf Urine Microscopic WBC (0-3) per hpf Ur Squamous Epith Cells (None-Few) per lpf Urine Bacteria (None-Few) per hpf Hyaline Casts (None-Few) per lpf Ur Culture Indicated? (NO) Critical Care Time Critical Care Time: Yes Total Critical Care Time: 45 Attestation: Critical care performed: Time is exclusive of separately billable procedures. Time includes: direct patient care, patient reassessment, coordination of patient care, interpretation of data (laboratory data, radiology data, and respiratory data), review of patient's medical records, medical consultation and documentation of patient care. Procedures included in critical care time: Procedures excluded from critical care time: Attestation Statement - Attestation Attestation: I, Marvin Meek DO, examined this patient [id number] and my medical decision-making was reviewed with Dr. Charlotte Bar, Resident Physician. I agree with the documented findings, disposition and treatment plan as described except to the extent set forth below. I personally supervised and was present for the aiken/critical portions of the procedures completed by the resident documented below. Please see my progress notes for details. 73-year-old female presents to the emergency room by EMS for evaluation of palpitations chest tightness and pain into her back. Patient has a history of paroxysmal atrial fibrillation. Over the night she felt several episodes where her heart bounced in and out of rate. Patient has had persistent symptoms this morning. She denies any active exertional chest pain or issues. Her only describes symptoms at this time as tightness to the anterior chest wall. Currently she is denying fevers or chills. Denies any headache or vision change. She has not had any falls trauma or injury. She does not have any nausea vomiting or diarrhea. She did not take her morning medicines morning. She has not had any recent illnesses or medication changes. On physical exam the patient is comfortable sitting upright in the bed conversational without any dyspnea. Oropharynx is patent. Trachea is midline. Heart is irregular and tachycardic. Lungs are clear. Abdomen is soft. She has no point tenderness guarding or rigidity. Extremities otherwise normal. No signs of pitting edema. Patient has no neurologic deficits. She is alert she is oriented she speaking in full sentences. She walks without any difficulty from the consult to the bed at this time. Vital signs been reviewed and she is otherwise hemodynamically stable. Single dose of metoprolol will be given secondary to the patient's history with Cardizem allergy or profound response with severe bradycardia. Patient will also have detailed workup looking for any other acute cardiac related etiology. EKG is reviewed by myself documented by the resident physician with what appears to be atrial fibrillation with rapid ventricular response. No visible signs of ischemic changes noted at this point. See detailed documentation the physical exam, medical intervention, medical decision-making disposition the resident physician's note. If need be cardiology will be consult and intervention will be provided. No critical care applied the patient's treatment course at this time. Patient has been doing yardwork the last several days there is some aspect of potential dehydration confounding the presentation this time. One single liter of fluid will be given. Patient is otherwise stable [address] Martin was contacted and we reviewed the case. Initially there is some miscommunication in the discussion entailed that the patient was not on blood thinners. She is currently on Coumadin. Her INR is 1.7. Because of this she will be given 2.5 mg Coumadin by mouth as well as started on a heparin drip since she is subtherapeutic. Patient is also asymptomatic at this time for pressure and pain in her troponin is negative. She was started on as moderate for rate control given her morning dose of sotalol she did not take. Patient is otherwise clinically stable. She will be admitted for echocardiogram and stress test. Patient was informed and she is comfortable this plan. 45 minutes of critical care applied the patient's treatment course secondary to multidisciplinary intervention as well as medical management. Hospitalist has been paged at this time. Hospitalist reviewed the case. Dr. Feldman had no other questions or conc erns. Patient will be admitted for symptomatic control it appears to be A. fib with RVR multiple medications. Patient is otherwise currently stable to time of admission.
[2018-09-11 09:29] LABS: Basophils % 0.5 %; Eosinophils # 0.1 K/mcL (0.0-0.6); Eosinophils % 0.8 %; Hematocrit 40.2 % (35.3-44.9); Hemoglobin 13.1 g/dL (11.5-15.4); Immature Granulocytes % 0.2 % (0-4); Lymphocytes # 1.8 K/mcL (0.6-4.6); Lymphocytes % 28.6 %; Mean Corpuscular HGB Conc 32.6 g/dL (31.6-35.5); Mean Corpuscular Volume 88.9 fL (83.0-100.0); Mean Platelet Volume 10.3 fL (9.4-12.4); Monocytes # 0.5 K/mcL (0.0-1.3); Monocytes % 8.5 %; Neutrophils # 3.8 K/mcL (1.6-8.9); Platelet Count 286 K/mcL (140-400); Red Blood Count 4.52 M/mcL (3.82-4.97); Red Cell Distribution Width 12.6 % (11.5-14.5); Segmented Neutrophils % 61.4 %; White Blood Count 6.3 K/mcL (4.3-11.1)
[2018-09-11 09:38] LABS: INR 1.7; Prothrombin Time 18.8 Seconds (9.4-12.1)
[2018-09-11] MEDS ORDERED: Nitroglycerin 0.4 MG TAB.SUBL SL PRN (09:38)
[2018-09-11 09:41] LABS: Activated Partial Thrombo Time 37.2 Seconds (26.0-36.0)
[2018-09-11 09:51] LABS: BUN/Creatinine Ratio 11 (6-26); Blood Urea Nitrogen 11 mg/dL (8-23); Calcium 9.8 mg/dL (8.6-10.3); Carbon Dioxide 23 mEq/L (23-29); Chloride 106 mEq/L (98-107); Glucose 138 mg/dL (70-105); Magnesium 2.2 mg/dL (1.6-2.6); Osmolality,Calculated 300 (280-300); Potassium 4.2 mEq/L (3.5-5.1); Sodium 144 mEq/L (136-145); Troponin I < 0.03 ng/mL (< 0.04); eGFR For African Americans > 60 (> 60); eGFR For Non-African Americans 57 (> 60)
[2018-09-11 10:04] LABS: Thyroid Stimulating Hormone 2.314 mcIU/mL (0.340-5.600)
[2018-09-11 10:09] LABS: Bilirubin,Urine Negative (Negative); Blood,Urine Small (Negative); Clarity,Urine Clear (Clear); Color,Urine Yellow (Yellow); Glucose,Urine (UA) Normal (Normal); Ketones,Urine Negative (Negative); Leukocyte Esterase,Urine Trace (Negative); Nitrite,Urine Negative (Negative); Protein,Urine Negative (Neg-Trace); Specific Gravity,Urine 1.013 (1.010-1.025); Urobilinogen,Urine Normal (Normal)
[2018-09-11 10:12] LABS: Bacteria,Urine None Seen per hpf (None-Few); Hyaline Casts,Urine None Seen per lpf (None-Few); Squamous Epithelial Cell,Urine Few per lpf (None-Few)
[2018-09-11] MEDS ORDERED: Esmolol 2.5 GM/250 ML MLS IVC SCH (10:45)
--- NOTE | 2018-09-11 10:52 | Emergency Department Note ---
Disposition Clinical Impression: Atrial fibrillation with RVR Atrial fibrillation Qualifiers: Atrial fibrillation type: chronic Qualified Code(s): I48.2 - Chronic atrial fibrillation Disposition: Admitted As Inpatient Condition: Good Referrals: Jaime Swenson MD [Primary Care Provider] - Forms: ED Satisfaction Letter Time of Disposition: 11:12 Arrhythmia/Palpitations HPI - General Chief Complaint: ED Arrhythmia/Palpitations Stated Complaint: rapid heart rate Time Seen by Provider: 09/11/18 09:04 Source: patient, EMS Mode of arrival: private vehicle Limitations: no limitations Nursing Notes Reviewed: Yes Vital Signs Reviewed: Yes - History of Present Illness HPI Narrative: 73-year-old female with a past medical history of A. fib managed on sotalol and metoprolol that noticed that her heart felt like it was "out of rhythm" yesterday about 4:30 in the morning. She also is complaining of a headache that is all of her head which she attributes to high blood pressure. Patient is normally very active and has been out mowing and weed eating but has not really had any changes in her routine and has not missed any doses of her medication. She is endorsing 8 out of 10 chest pressure but denies chest pain. She denies shortness of breath. She is endorsing some hot flashes, some nausea, but denies any vomiting. - Related Data Home Medications Medication Instructions Recorded Confirmed Alendronate Sodium [Fosamax] 70 mg PO QWEEK 09/11/18 09/11/18 Cholecalciferol (D-3) [Vitamin D] 2,000 unit PO DAILY 09/11/18 09/11/18 Losartan Potassium [Cozaar] 50 mg PO DAILY 09/11/18 09/11/18 Multivit-Min/Iron/Folic Acid/K 1 tab PO DAILY 09/11/18 09/11/18 [Adults Multivitamin Tablet] Nitroglycerin [Nitrostat] 0.4 mg SL PRN PRN 09/11/18 09/11/18 Omeprazole [PriLOSEC] 40 mg PO DAILY 09/11/18 09/11/18 Rosuvastatin Calcium [Crestor] 40 mg PO DAILY 09/11/18 09/11/18 Warfarin Sodium 1 mg PO DAILY 09/11/18 09/11/18 Warfarin Sodium 4 mg PO DAILY 09/11/18 09/11/18 Previous Rx's Medication Instructions Recorded Sotalol [Betapace] 40 mg PO Q12H tablet 08/07/16 Allergies Allergy/AdvReac Type Severity Reaction Status Date / Time codeine Allergy Vomiting Verified 04/18/18 13:47 diltiazem [From Cardizem] AdvReac See Verified 04/18/18 13:47 Comments Penicillins AdvReac Rash Verified 04/18/18 13:47 Review of Systems: In addition to that documented in the HPI above, the additional ROS was o btained: Constitutional: Denies fevers or chills Eyes: Denies vision changes ENMT: Denies sore throat CV: Reports chest pressure, feels that her heart is out of rhythm Resp: Denies SOB GI: Denies vomiting or diarrhea Reports nausea : Denies painful urination MSK: Denies recent trauma Skin: Denies new rashes Neuro: Denies new numbness or tingling or weakness Reports headache Endocrine: Denies unexpected weight loss Heme: Denies bleeding disorders Past Medical History - Past Medical History Attestation: Yes The following information was validated with the patient. Medical history: Reports: atrial fibrillation, coronary artery disease, GERD, hyperlipidemia, hypertension, myocardial infarction Surgical history: Reports: angioplasty/stent, cholecystectomy Psychiatric history: Reports: no psych history GEAR AND SPLINE GRINDER history: Reports: no GEAR AND SPLINE GRINDER history - Social History Smoking Status: Former smoker Smokeless Tobacco Status: No Alcohol use: Reports: none Drug use: Reports: none Physical Exam General: A&O x 3. No acute distress. Well developed, well nourished. Head: atraumatic, normocephalic. ENT: No conjunctival injection, no scleral icterus. PERRLA. EOMI. Oropharynx non- erythematous. mucous membranes moist. Neuro: No focal deficits, no speech deficit, no facial droop, mentating well. BUE/BLE Str 5/5. Pulm: Lungs CTAB A/P. No wheezes, rales, ronchi. Cardio: Tachycardia. Chest not tender to palpation. Abd: Soft, non-distended. Normoactive bowel sounds. Non-tender to palpation. No guarding. Non rigid. Extremities: Radial pulses 2+ mark [place], dorsalis pedis/posterior tibialis 2+ mark anthony. No LE edema. No cyanosis, clubbing. Skin: warm, dry, intact. No rashes. Psych: Appropriate mood and affect. Answers questions appropriately. Cooperative with exam. - General Limitations: no limitations General appearance: alert, in no apparent distress Course Vital Signs Temperature 98.7 F 09/11/18 09:11 Pulse Rate 135 09/11/18 09:11 Respiratory Rate 16 09/11/18 09:11 Blood Pressure 158/94 09/11/18 09:11 O2 Sat by Pulse Oximetry 97 09/11/18 09:11 Temperature 98.7 F 09/11/18 09:11 Pulse Rate 107 09/11/18 10:03 Respiratory Rate 16 09/11/18 10:03 Blood Pressure 155/102 09/11/18 10:03 O2 Sat by Pulse Oximetry 98 09/11/18 10:03 Oxygen Delivery Oxygen Delivery Room Air Arrhythmia/Palpitations - MDM Narrative Medical decision making narrative: 73-year-old female that presents to the emergency department with complaints that her heart is in atrial fibrillation she was noted to have rapid ventricular response on EKG. She was also endorsing some chest pressure when she first arrived. Patient's stated that she is allergic to Cardizem and manages her R A. fib with sotalol and metoprolol. Patient was initially tachycardic in the 140s but was given a dose of Lopressor, started on an esmolol drip, this improved her chest pressure down from an 8 out of 10 to a 2 out of 10. Cardiology was consulted, my attending Dr. Meek spoke with Dr. Martin, who stated that she should be given a dose of sotalol while here. Patient's INR was subtherapeutic at 1.7, she will be given a dose of Coumadin, as well as started on heparin. It was thought that the patient could benefit from further inpatient treatment given her normally controlled A. fib with RVR, she was additionally scheduled for an outpatient stress test this coming Sunday. Patient was admitted to the hospitalist Dr. Feldman, who agreed to accept the patient to his service. Results of the workup including any imaging and/or labwork was shared with the patient at bedside. Patient was given an opportunity to ask questions at bedside and all of their concerns were addressed. Patient verbalized understanding and agreement with plan of care. Pt remained stable while in the department. - Medical Records Medical records reviewed: Yes I reviewed the patient's medical records. - Lab Data Lab results reviewed: Yes I reviewed the patient's lab results. Result diagrams: 09/11/18 09:19 09/11/18 09:19 Lab Results 09/11/18 09/11/18 09/11/18 Range/Units 09:19 09:19 09:19 WBC 6.3 (4.3-11.1) K/mcL RBC 4.52 (3.82-4.97) M/mcL Hgb 13.1 (11.5-15.4) g/dL Hct 40.2 (35.3-44.9) % MCV 88.9 (83.0-100.0) fL MCH 29.0 (28.0-33.3) pg MCHC 32.6 (31.6-35.5) g/dL RDW 12.6 (11.5-14.5) % Plt Count 286 (140-400) K/mcL MPV 10.3 (9.4-12.4) fL Immature Gran % 0.2 (0-4) % Seg Neutrophils % 61.4 % Lymphocytes % 28.6 % Monocytes % 8.5 % Eosinophils % 0.8 % Basophils % 0.5 % Neutrophils # 3.8 (1.6-8.9) K/mcL Lymphocytes # 1.8 (0.6-4.6) K/mcL Monocytes # 0.5 (0.0-1.3) K/mcL Eosinophils # 0.1 (0.0-0.6) K/mcL Basophils # 0.0 (0.0-0.2) K/mcL PT 18.8 H (9.4-12.1) Seconds INR 1.7 APTT 37.2 H (26.0-36.0) Seconds Sodium 144 (136-145) mEq/L Potassium 4.2 (3.5-5.1) mEq/L Chloride 106 (98-107) mEq/L Carbon Dioxide 23 (23-29) mEq/L BUN 11 (8-23) mg/dL Creatinine 0.96 (0.60-1.20) mg/dL Est GFR ( Amer) > 60 (> 60) Est GFR (Non-Af Amer) 57 L (> 60) BUN/Creatinine Ratio 11 (6-26) Glucose 138 H (70-105) mg/dL Calculated Osmolality 300 (280-300) Calcium 9.8 (8.6-10.3) mg/dL Magnesium 2.2 (1.6-2.6) mg/dL Troponin I < 0.03 (< 0.04) ng/mL B-Natriuretic Peptide (Less than 100) pg/mL TSH 2.314 (0.340-5.600) mcIU/mL Urine Color (Yellow) Urine Clarity (Clear) Urine pH (5.0-8.0) pH Units Ur Specific [place] (1.010-1.025) Urine Protein (Neg-Trace) mg/dL Urine Glucose (UA) (Normal) mg/dL Urine Ketones (Negative) mg/dL Urine Blood (Negative) Urine Nitrite (Negative) Urine Bilirubin (Negative) Urine Urobilinogen (Normal) mg/dL Ur Leukocyte Esterase (Negative) Urine Microscopic RBC (0-3) per hpf Urine Microscopic WBC (0-3) per hpf Ur Squamous Epith Cells (None-Few) per lpf Urine Bacteria (None-Few) per hpf Hyaline Casts (None-Few) per lpf Ur Culture Indicated? (NO) 09/11/18 09/11/18 Range/Units 09:26 09:39 WBC (4.3-11.1) K/mcL RBC (3.82-4.97) M/mcL Hgb (11.5-15.4) g/dL Hct (35.3-44.9) % MCV (83.0-100.0) fL MCH (28.0-33.3) pg MCHC (31.6-35.5) g/dL RDW (11.5-14.5) % Plt Count (140-400) K/mcL MPV (9.4-12.4) fL Immature Gran % (0-4) % Seg Neutrophils % % Lymphocytes % % Monocytes % % Eosinophils % % Basophils % % Neutrophils # (1.6-8.9) K/mcL Lymphocytes # (0.6-4.6) K/mcL Monocytes # (0.0-1.3) K/mcL Eosinophils # (0.0-0.6) K/mcL Basophils # (0.0-0.2) K/mcL PT (9.4-12.1) Seconds INR APTT (26.0-36.0) Seconds Sodium (136-145) mEq/L Potassium (3.5-5.1) mEq/L Chloride (98-107) mEq/L Carbon Dioxide (23-29) mEq/L BUN (8-23) mg/dL Creatinine (0.60-1.20) mg/dL Est GFR ( Amer) (> 60) Est GFR (Non-Af Amer) (> 60) BUN/Creatinine Ratio (6-26) Glucose (70-105) mg/dL Calculated Osmolality (280-300) Calcium (8.6-10.3) mg/dL Magnesium (1.6-2.6) mg/dL Troponin I (< 0.04) ng/mL B-Natriuretic Peptide 329 H (Less than 100) pg/mL TSH (0.340-5.600) mcIU/mL Urine Color Yellow (Yellow) Urine Clarity Clear (Clear) Urine pH 7.0 (5.0-8.0) pH Units Ur Specific [place] 1.013 (1.010-1.025) Urine Protein Negative (Neg-Trace) mg/dL Urine Glucose (UA) Normal (Normal) mg/dL Urine Ketones Negative (Negative) mg/dL Urine Blood Small H (Negative) Urine Nitrite Negative (Negative) Urine Bilirubin Negative (Negative) Urine Urobilinogen Normal (Normal) mg/dL Ur Leukocyte Esterase Trace H (Negative) Urine Microscopic RBC 5-15 H (0-3) per hpf Urine Microscopic WBC 3-5 H (0-3) per hpf Ur Squamous Epith Cells Few (None-Few) per lpf Urine Bacteria None Seen (None-Few) per hpf Hyaline Casts None Seen (None-Few) per lpf Ur Culture Indicated? YES A (NO) - Radiology Data Radiology results reviewed: Yes I reviewed the patient's radiology results. Chest X-Ray 09/11/18 09:10 IMPRESSION: 1. No active pulmonary disease. D/ / Jair Sanon MD / Jair Sanon MD Interpreting Provider: Jair Sanon MD - EKG Data EKG attestation: Yes I reviewed and interpreted this EKG. EKG results narrative: Heart rate 128, rhythm atrial fibrillation, axis normal. QRS 77, QTC 470. Less than [address] depressions in V2, V3, V4, V5, V6, lead 1, lead 2, lead 3, lead aVF these could be attributable to demand ischemia. Previous study dated 03/17/2017 also shows some depressions in V4, V5, V6. Attestation Statement - Attestation Attestation: I, Marvin Meek DO, examined this patient [id number] and my medical decision-making was reviewed with Dr. Charlotte Bar, Resident Physician. I agree with the documented findings, disposition and treatment plan as described except to the extent set forth below. I personally supervised and was present for the aiken/critical portions of the procedures completed by the resident documented below. Please see my progress notes for details.
[2018-09-11] MEDS ORDERED: *HR* Heparin 5,000 UNIT/ML VIAL IVP PRN ×2 (10:53)
[2018-09-11] MEDS ORDERED: *HR* Warfarin 2.5 MG TABLET PO ONE (10:53)
[2018-09-11] MEDS ORDERED: *HR* Heparin 5,000 UNIT/ML VIAL IVP ONE (10:53)
[2018-09-11] MEDS ORDERED: Heparin 25,000 UNIT/250 ML D5W 25,000 UNIT/250 ML IV.SOLN IVC SCH (11:00)
[2018-09-11] MEDS ORDERED: traMADol 50 MG TABLET PO PRN (11:22)
[2018-09-11] MEDS ORDERED: Naloxone 0.4 MG/ML INJ IVP PRN (11:22)
[2018-09-11 13:03] LABS: Phosphorous 2.6 mg/dL (2.7-4.5); Troponin I < 0.03 ng/mL (< 0.04)
--- NOTE | 2018-09-11 13:21 | Internal Med History&Physical ---
Date of Encounter: 09/11/18 Time of Encounter: 13:19 Internal Medicine - H&P: HPI Chief complaint: palpitations Admitted From: Home Plans for Post Hospital Care: Home History of present illness: Ms. Barry is a 73 year old female PMH of A.fib, HTN, CAD, HLD and Colitis. Patient presented to the ED due to palpitations. patient reported waking up this morning with palpitations. Reported after she woke up she felt like her heart was out of rythm and checked her HR and it was 150 and her BP was 191/131. Denies chest pain, but reported shortness of breath and a headache associated with her palpitations. Reports being compliant with her medications. Denies nausea, vomiting, or abdominal pain. Denied urinary symptoms In the ED patient was found to be on A.fib with RvR and the hospitalist team was called for management. Past Med Surg Social Fam HX - Past Medical History Medical history: atrial fibrillation, coronary artery disease, GERD, hype rlipidemia, hypertension, myocardial infarction Additional medical history: stents Psychiatric history: no psych history - Past Surgical History Surgical History: angioplasty/stent, cholecystectomy Additional surgical history: Cardiac stents x2 - Social History Smoking Status: Former smoker Smokeless Tobacco Status: No Alcohol use: none Drug use: none Internal Medicine - H&P: Meds Sotalol [Betapace] 40 mg PO Q12H tablet 08/07/16 [Rx] Alendronate Sodium [Fosamax] 70 mg PO QWEEK 09/11/18 [History] Cholecalciferol (D-3) [Vitamin D] 2,000 unit PO DAILY 09/11/18 [History] Losartan Potassium [Cozaar] 50 mg PO DAILY 09/11/18 [History] Multivit-Min/Iron/Folic Acid/K [Adults Multivitamin Tablet] 1 tab PO DAILY 09/11/18 [History] Nitroglycerin [Nitrostat] 0.4 mg SL PRN PRN 09/11/18 [History] Omeprazole [PriLOSEC] 40 mg PO DAILY 09/11/18 [History] Rosuvastatin Calcium [Crestor] 40 mg PO DAILY 09/11/18 [History] Warfarin Sodium 1 mg PO DAILY 09/11/18 [History] Warfarin Sodium 4 mg PO DAILY 09/11/18 [History] Allergy/AdvReac Type Severity Reaction Status Date / Time codeine Allergy Vomiting Verified 04/18/18 13:47 diltiazem [From Cardizem] AdvReac See Verified 04/18/18 13:47 Comments Penicillins AdvReac Rash Verified 04/18/18 13:47 All Systems PM: A 10-system review of systems was performed and is negative for pertinent findings except as documented above in the HPI. - Constitutional Constitutional: no chills, no fever(s), no weakness - EENT Eyes: no blurry vision Nose, mouth and throat: no sinus pain - Breasts Breasts: no pain - Cardiovascular Cardiovascular ROS IM: dyspnea, dyspnea on exertion, irregular heart rhythm, palpitations, no chest pain, no lightheadedness - Respiratory Respiratory: no cough - Gastrointestinal Gastrointestinal: no abdominal pain, no nausea, no vomiting - Genitourinary Genitourinary: no dysuria, no urinary frequency, no urinary hesitancy, no urinary urgency - Musculoskeletal Musculoskeletal ROS IM: no back pain - Integumentary Integumentary IM: no erythema, no non-healing lesions - Neurological Neurological ROS: no frequent falls - Psychiatric Psychiatric: no anxiety, no irritability - Endocrine Endocrine IM: no cold intolerance, no excessive sweating - Hematologic/Lymphatic Hematologic/Lymphatic: no lymphadenopathy - Allergic/Immunologic Allergic/Immunologic: no GI upset with certain foods - Constitutional Vitals: Temp Pulse Resp BP Pulse Ox 98.6 F 53 16 140/54 97 09/11/18 13:17 09/11/18 13:17 09/11/18 13:17 09/11/18 13:17 09/11/18 13:17 Exam: Vitals: Reviewed General: Alert and oriented x4. In mild distress due to palpitations. Cardiovascular: Irregularly, irregular, normal S1 & S2, no rubs, murmurs or gallops. Lungs: CTA b/l, no wheezes or crackles. Abdomen: Soft, non-tender, no rigidity. Extremities: No deformity, no edema or tenderness, no joint swelling or clubbing. Neurological: Normal cognition and motor skills. Rest of the physical exam is non contributory Internal Med - H&P Results - Labs CBC & Chem 7: 09/11/18 09:19 09/11/18 09:19 Labs: Short CBC 09/11/18 Range/Units 09:19 WBC 6.3 (4.3-11.1) K/mcL Hgb 13.1 (11.5-15.4) g/dL Hct 40.2 (35.3-44.9) % Plt Count 286 (140-400) K/mcL Neutrophils # 3.8 (1.6-8.9) K/mcL BMP 09/11/18 09:19 Sodium 144 Potassium 4.2 Chloride 106 Carbon Dioxide 23 BUN 11 Creatinine 0.96 Glucose 138 H Calcium 9.8 Cardiac Enzymes 09/11/18 09/11/18 Range/Units 09:19 12:27 Troponin I < 0.03 < 0.03 (< 0.04) ng/mL Urine 09/11/18 Range/Units 09:39 Urine Color Yellow (Yellow) Urine Clarity Clear (Clear) Urine pH 7.0 (5.0-8.0) pH Units Ur Specific [place] 1.013 (1.010-1.025) Urine Protein Negative (Neg-Trace) mg/dL Urine Glucose (UA) Normal (Normal) mg/dL - Impressions ITS Impressions Chest X-Ray 09/11/18 09:10 IMPRESSION: 1. No active pulmonary disease. D/ / Jair Sanon MD / Jair Sanon MD Interpreting Provider: Jair Sanon MD - Diagnostic Studies Chest x-ray Status: image reviewed by me (no acute findings ) - Assessment and Plan (1) Atrial fibrillation with RVR Current Visit: Yes Status: Acute Assessment and plan: HR ranging in the 150s. Plan - started on a esmolol drip, allergic cardizem. - will resume home dose of sotalol, titrate esmolol drip off as tolerated - cardiology consulted recommendations appreciated - stated on a heparin drip as a bridge. On warfarin per pharmacy protocol. INR not therapeutic - TTE ordered. - Telemetry monitoring - Phosp and magnesium level ordered - Serial trops (2) HLD (hyperlipidemia) Current Visit: Yes Status: Chronic Assessment and plan: will resume rosuvastatin 40mg/PO daily. home med Qualifiers: Hyperlipidemia type: unspecified Qualified Code(s): E78.5 - Hyperlipidemia, unspecified (3) DVT prophylaxis Current Visit: Yes Status: Acute Assessment and plan: intermittent pneumatic compression for DVT prophylaxis (4) CAD (coronary artery disease) Current Visit: No Status: Chronic Assessment and plan: patient reported having a [facility] about 4 years ago. Qualifiers: Coronary Disease-Associated Artery/Lesion type: [place] artery [place] vs. transplanted heart: [place] heart Associated angina: without angina Qualified Code(s): I25.10 - Atherosclerotic heart disease of [place] coronary artery without angina pectoris (5) HTN (hypertension) Current Visit: No Status: Chronic Assessment and plan: patient re-started on her home dose of sotalol 40mg/PO BID. Qualifiers: Hypertension type: essential hypertension Qualified Code(s): I10 - Essential (primary) hypertension - Time Spent With Patient Total time spent is greater than 50% in coordination of care (as documented) at patient's floor/unit and/or counseling patient: Greater than 35 minutes (45)
--- NOTE | 2018-09-11 15:24 | Cardiology Consult Note ---
<BrendenLeonoradot Harris - Last Filed: 09/11/18 15:21> Date of Encounter: 09/11/18 Time of Encounter: 15:21 Assessment and Plan (1) PAF (paroxysmal atrial fibrillation) Current Visit: No Status: Chronic Per cardiology: -Known PAF, admitted with a.fib RVR. -ON sotalol 40mg BID, deemed not a candidate for sotalol increase due to bradycardia when in SR. -Patient was given sotalol in ER, now currently SB, HR 48. Denies dizziness, lightheadedness. States HR 40s is her baseline. -ON coumadin, INR subtherapeutic on admission, now on heparin drip also -Continue heparin drip until INR therapeutic. -Continue sotalol. -Wlll continue to monitor. (2) Chest pain Current Visit: No Status: Acute Per cardiology: -Patient reported chest pain when HR was elevated, does have typical features though. -Troponins negative. -NO acute ischemic ECG changes noted. -Denies current chest pain. -ON statin, BB. -History of CAD s/p previous PCI. -Stress 2017 negative for ischemia or infarct. -TTE pending. -Will start ASA. -Recommend stress test in am. Qualifiers: Chest pain type: unspecified Qualified Code(s): R07.9 - Chest pain, unspecified Discussion w patient/family: The assessment and plan as outlined above was discussed with the patient and/or family members who expressed understanding and agreement. All questions were answered. Thank you for involving us in the care of your patient. Please call with any questions. Discussed and reviewed with . History of Present Illness Consult date: 09/11/18 Requesting physician: Marvin Meek Consult reason: a.fib RVR Chief complaint: chest pressure History of present illness: Ms. Barry is a 73 year old female with a relevant past medical history of PAF, CAD s/p PCI, HTN, HLD, GERD, IBS, who presented to [facility] with complaints of chest pressure and palpitations. Patient states symptoms woke her from sleeping. Reports chest pain in left side of chest, radiating down left arm. Reports associated diaphoresis and nausea. Denies aggravating factors. Reports was relieved by "medicines" in ER. Also reports concurrent palpitation, elevated HR. Denies current symptoms. Denies dizziness, ligthheadedness. Past Med Surg Social Fam HX - Past Medical History Attestation: Yes The following information was validated with the patient. Source: patient, old records reviewed Medical history: atrial fibrillation, coronary artery disease, GERD, hyperlipidemia, hypertension, myocardial infarction Additional medical history: colitis Psychiatric history: no psych history - Past Surgical History Surgical History: cholecystectomy Additional surgical history: Cardiac stents x2 - Social History Smoking Status: Former smoker Smokeless Tobacco Status: No Alcohol use: none Drug use: none - Family History Mother Living Status: Age at : 50 Cause of : [place] Hx Family Cardiac Disorders: Yes Father Living Status: Age at : 80 Cause of : [place] Sister Living Status: Age at : 56 Cause of : [place] Medications and Allergies Sotalol [Betapace] 40 mg PO Q12H tablet 08/07/16 [Rx] Alendronate Sodium [Fosamax] 70 mg PO QWEEK 09/11/18 [History] Cholecalciferol (D-3) [Vitamin D] 2,000 unit PO DAILY 09/11/18 [History] Losartan Potassium [Cozaar] 50 mg PO DAILY 09/11/18 [History] Multivit-Min/Iron/Folic Acid/K [Adults Multivitamin Tablet] 1 tab PO DAILY 09/11/18 [History] Nitroglycerin [Nitrostat] 0.4 mg SL PRN PRN 09/11/18 [History] Omeprazole [PriLOSEC] 40 mg PO DAILY 09/11/18 [History] Rosuvastatin Calcium [Crestor] 40 mg PO DAILY 09/11/18 [History] Warfarin Sodium 1 mg PO DAILY 09/11/18 [History] Warfarin Sodium 4 mg PO DAILY 09/11/18 [History] Allergy/AdvReac Type Severity Reaction Status Date / Time codeine Allergy Vomiting Verified 04/18/18 13:47 diltiazem [From Cardizem] AdvReac See Verified 04/18/18 13:47 Comments All Systems Review: The remainder of the systems were reviewed and are negative - Cardiovascular Cardiovascular: as per HPI, chest pain at rest, diaphoresis, radiating jaw, neck or arm pain, palpitations, rapid heart rate - Gastrointestinal Gastrointestinal: nausea Physical Examination Vital Signs, Last 4 Hours Temp Pulse Resp BP Pulse Ox 09/11/18 13:17 98.6 F 53 16 140/54 97 09/11/18 12:37 16 139/67 09/11/18 12:15 53 16 129/86 97 09/11/18 12:09 136 16 114/97 96 09/11/18 11:39 110 137/117 98 General: Conversant, No Apparent Distress HEENT: Atraumatic, Normocephaly, Mucus Membranes Moist Neck: No JVD, Normal carotid pulses Cardiac: Reg Rate and Rhythm, Normal S1 and S2, No Murmur Lungs: Normal Breath Sounds, No Wheeze, Rales, Rhonchi Neuro: Alert and responsive, No focal deficits noted Abdomen: Soft, Non-Tender Skin: No rashes noted on visualized skin Musculoskeletal: No Chest Wall Tenderness Extremities: No Clubbing, No Cyanosis, No Edema, Normal Pulses Results 09/11/18 09:19 09/11/18 09:19 Lab Results Impressions Chest X-Ray 09/11/18 09:10 IMPRESSION: 1. No active pulmonary disease. D/ / Jair Sanon MD / Jair Sanon MD Interpreting Provider: Jair Sanon MD Active Medications Heparin Sodium (Porcine) (Heparin) 4,500 unit 70 unit/kg (4500 unit) IVP Q6HR PRN PRN Reason: SEE COMMENTS Stop: 03/13/19 10:54 Heparin Sodium (Porcine) (Heparin) 2,300 unit 35 unit/kg (2300 unit) IVP Q6H PRN PRN Reason: SEE COMMENTS Stop: 03/13/19 10:54 Heparin Sodium/Dextrose (Heparin 25,000 Unit/250 Ml D5w) 25,000 unit in 250 mls @ 9.068 mls/hr IVC .Q24H CAROL; Protocol Stop: 03/13/19 11:01 Last Admin: 09/11/18 11:35 Dose: 14 unit/kg/hr, 9.1 mls/hr Documented by: Sodium Phosphate 30 mmol/ (Sodium Chloride) 260 mls @ 42 mls/hr IVPB ONCE ONE Stop: 09/11/18 19:29 Naloxone HCl (Narcan) 0.4 mg IVP Q2MPRN PRN PRN Reason: SEE COMMENTS Stop: 03/13/19 11:23 Rosuvastatin Calcium (Crestor) 40 mg PO HS [facility] Stop: 03/13/19 21:01 Sotalol HCl (Betapace) 40 mg PO Q12HR CAROL Stop: 03/13/19 23:01 Tramadol HCl (Ultram) 50 mg PO Q6HR PRN PRN Reason: Moderate Pain Stop: 03/13/19 11:23 Warfarin Sodium (Coumadin Perpt) 1 each PO DAILY@1800 [facility] Stop: 03/13/19 18:01 Laboratory Tests 09/11/18 09/11/18 09/11/18 09:19 09:19 09:19 Hgb 13.1 INR 1.7 Potassium 4.2 Creatinine 0.96 Magnesium 2.2 Troponin I < 0.03 TSH 2.314 09/11/18 12:27 Hgb INR Potassium Creatinine Magnesium Troponin I < 0.03 TSH - Imaging and Cardiology Chest Xray: report reviewed Stress Test: report reviewed Echo: pending - EKG Interpretation EKG results cardiology: personally reviewed (ECG with a.fib, RVR, HR 128. QT 322/ QTc 470ms.), other (Currently SB per telemetry.) Consult Discharge Plan - Plan Referrals: Jaime Swenson MD [Primary Care Provider] - < A - Last Filed: 09/11/18 16:29> Date of Encounter: 09/11/18 - Attending Attestation I have personally performed a face to face evaluation on this patient. I have reviewed and agree with the documented findings and care plan as documented by the FENCE ERECTOR. History and Exam by me shows: 73-year-old very pleasant female with history of CAD, A. fib on Coumadin, presented with A. fib with RVR. Currently in sinus rhythm at controlled rate, after receiving intravenous metoprolol. INR not therapeutic. She reports that it has been difficult to stay therapeutic and she is also a vegetarian. AAOX3 in NAD at the bedside Hemodynamically stable Cardiopulmonary exam revealed S1, S2, no murmur; clear lungs Rhythm reviewed - sinus rhythm, no acute ST T changes Echo pending Impression/plan: Atrial fibrillation, currently in sinus rhythm. Obtain echocardiogram. Intravenous heparin pending echo. If no significant valvular heart disease we will transition to Eliquis 5 mg twice a day. Obtain stress test to rule out ischemia Daniel Onofre MD [facility] Assessment and Plan Discussion w patient/family: The assessment and plan as outlined above was discussed with the patient and/or family members who expressed understanding and agreement. All questions were answered. Thank you for involving us in the care of your patient. Please call with any questions. History of Present Illness History of present illness: Ms. Barry is a 73 year old female All Systems Review: The remainder of the systems were reviewed and are negative Physical Examination Vital Signs, Last 4 Hours Temp Pulse Resp BP Pulse Ox 09/11/18 13:17 98.6 F 53 16 140/54 97 09/11/18 12:37 16 139/67 Results 09/11/18 09:19 09/11/18 09:19 Lab Results 09/11/18 09/11/18 09/11/18 09:19 09:19 09:19 WBC 6.3 Hgb 13.1 Hct 40.2 Plt Count 286 INR 1.7 APTT 37.2 H Sodium 144 Potassium 4.2 Chloride 106 Carbon Dioxide 23 BUN 11 Creatinine 0.96 Glucose 138 H Calcium 9.8 Magnesium 2.2 Troponin I < 0.03 B-Natriuretic Peptide TSH 2.314 09/11/18 09/11/18 09:26 12:27 WBC Hgb Hct Plt Count INR APTT Sodium Potassium Chloride Carbon Dioxide BUN Creatinine Glucose Calcium Magnesium 2.0 Troponin I < 0.03 B-Natriuretic Peptide 329 H TSH
[2018-09-11] MEDS ORDERED: Warfarin perPT PO SCH (18:00)
[2018-09-12 00:15] LABS: Basophils % 0.3 %; Eosinophils # 0.1 K/mcL (0.0-0.6); Eosinophils % 1.4 %; Hematocrit 36.8 % (35.3-44.9); Hemoglobin 11.7 g/dL (11.5-15.4); Immature Granulocytes % 0.3 % (0-4); Lymphocytes # 2.9 K/mcL (0.6-4.6); Lymphocytes % 29.8 %; Mean Corpuscular HGB Conc 31.8 g/dL (31.6-35.5); Mean Corpuscular Hemoglobin 29.1 pg (28.0-33.3); Mean Corpuscular Volume 91.5 fL (83.0-100.0); Mean Platelet Volume 10.9 fL (9.4-12.4); Monocytes # 0.8 K/mcL (0.0-1.3); Monocytes % 8.2 %; Neutrophils # 5.9 K/mcL (1.6-8.9); Platelet Count 255 K/mcL (140-400); Red Blood Count 4.02 M/mcL (3.82-4.97); Red Cell Distribution Width 13.1 % (11.5-14.5); White Blood Count 9.8 K/mcL (4.3-11.1)
[2018-09-12 00:39] LABS: Heparin anti-factor XA UFH 0.41 IU/mL (0.30-0.70)
[2018-09-12 01:08] LABS: BUN/Creatinine Ratio 14 (6-26); Blood Urea Nitrogen 11 mg/dL (8-23); Calcium 8.8 mg/dL (8.6-10.3); Carbon Dioxide 22 mEq/L (23-29); Chloride 109 mEq/L (98-107); Glucose 91 mg/dL (70-105); Osmolality,Calculated 287 (280-300); Potassium 3.8 mEq/L (3.5-5.1); Sodium 139 mEq/L (136-145); eGFR For African Americans > 60 (> 60); eGFR For Non-African Americans > 60 (> 60)
[2018-09-12 01:24] LABS: INR 1.9; Prothrombin Time 21.4 Seconds (9.4-12.1)
[2018-09-12] MEDS ORDERED: Regadenoson 0.4 MG/5 ML SYRINGE IVP ONE (06:37)
[2018-09-12] MEDS ORDERED: Acetaminophen 325 MG TABLET PO PRN (10:00)
[2018-09-12 12:08] VITALS: BP 130/47
[2018-09-12] MEDS ORDERED: *HR* Rivaroxaban 10 MG TABLET PO SCH (12:45)
--- NOTE | 2018-09-12 13:31 | Electrocardiograph Report ---
[facility] Test Date: 2018-09-11 Pat Name: Viviana Barry Department: [id number] Room: 2NE25 Gender: F Loadmaster: : 1945 Requested By: Marvin Meek Order Number: [id number] Reading MD: Vic Wooten Measurements Intervals Streeter Rate: 128 P: MO: QRS: 30 QRSD: 77 T: 67 QT: 322 QTc: 470 Interpretive Statements Atrial flutter Abnormal R-wave progression, early transition Borderline ST depression, diffuse leads Electronically Signed On 09-12-2018 13:30:19 EDT by Vic Wooten
--- NOTE | 2018-09-12 13:33 | Discharge Summary ---
Orders not resulted at time of discharge: Pending orders 09/11/18 09:10 ECG 12 lead ECG [ECG] Stat 09/12/18 05:00 NM paddy perf SPECT multi [NM] Routine 09/13/18 04:00 INR/PT [Prothrombin Time INR] [COAG] AM 0400 09/13/18 05:37 Heparin anti-factor XA UFH [COAG] Timed 09/14/18 04:00 INR/PT [Prothrombin Time INR] [COAG] AM 0400 Date of Encounter: 09/12/18 Time of Encounter: 13:28 - Discharge Diagnosis (1) Atrial fibrillation with RVR Priority: Primary Status: Resolved (2) HLD (hyperlipidemia) Priority: Secondary Status: Chronic Qualifiers: Hyperlipidemia type: unspecified Qualified Code(s): E78.5 - Hyperlipidemia, unspecified (3) DVT prophylaxis Priority: Secondary Status: Chronic (4) CAD (coronary artery disease) Priority: Secondary Status: Chronic Qualifiers: Coronary Disease-Associated Artery/Lesion type: [place] artery [place] vs. transplanted heart: [place] heart Associated angina: without angina Qualified Code(s): I25.10 - Atherosclerotic heart disease of [place] coronary artery without angina pectoris (5) HTN (hypertension) Priority: Secondary Status: Chronic Qualifiers: Hypertension type: essential hypertension Qualified Code(s): I10 - Essential (primary) hypertension Hospital course: Ms. Barry is a 73 year old female PMH of A.fib, HTN, CAD, HLD and Colitis. Patient presented to the ED due to palpitations. Patient was found to be on A. fib and RVR. Managed with esmolol drip and home medications resumed. Patient HR was controlled after a short period of being started on the drip. Patient also referred some chest discomfort, serial trops negative, stress test and TTE done. Patient requested to be taken off warfarin and being placed on another antico agulant as she did not want to continue having blood work done, started on Eliquis. Patient is hemodynamically stable to be discharged. Recommended to follow up with cardiology within a week of hospital discharge. - Time Spent with Patient Total time spent providing and/or coordinating discharge services: Time spent: Greater than 30 minutes (35) - Discharge Medications Prescriptions: New Apixaban [Eliquis] 5 mg PO BID 30 Days #60 tablet Continued Sotalol [Betapace] 40 mg PO Q12H tablet Cholecalciferol (D-3) [Vitamin D] 2,000 unit PO DAILY Alendronate Sodium [Fosamax] 70 mg PO JUNIOR Omeprazole [PriLOSEC] 40 mg PO QAM Rosuvastatin Calcium [Crestor] 40 mg PO QPM Losartan Potassium [Cozaar] 50 mg PO QAM Multivit-Min/Iron/Folic Acid/K [Adults Multivitamin Tablet] 1 tab PO DAILY Nitroglycerin [Nitrostat] 0.4 mg SL PRN PRN PRN Reason: Chest Pain Clopidogrel [Plavix] 75 mg PO DAILY Calcium Carbonate [Calcium] 500 mg PO DAILY Discontinued Warfarin Sodium 4 mg PO Q48H Warfarin Sodium 0.5 mg PO Q48H Home Medications: Sotalol [Betapace] 40 mg PO Q12H tablet 08/07/16 [Rx] Alendronate Sodium [Fosamax] 70 mg PO JUNIOR 09/11/18 [History] Calcium Carbonate [Calcium] 500 mg PO DAILY 09/11/18 [History] Cholecalciferol (D-3) [Vitamin D] 2,000 unit PO DAILY 09/11/18 [History] Clopidogrel [Plavix] 75 mg PO DAILY 09/11/18 [History] Losartan Potassium [Cozaar] 50 mg PO QAM 09/11/18 [History] Multivit-Min/Iron/Folic Acid/K [Adults Multivitamin Tablet] 1 tab PO DAILY 09/11/18 [History] Nitroglycerin [Nitrostat] 0.4 mg SL PRN PRN 09/11/18 [History] Omeprazole [PriLOSEC] 40 mg PO QAM 09/11/18 [History] Rosuvastatin Calcium [Crestor] 40 mg PO QPM 09/11/18 [History] Apixaban [Eliquis] 5 mg PO BID 30 Days #60 tablet 09/12/18 [Rx] Allergies/Adverse Reactions: Allergy/AdvReac Type Severity Reaction Status Date / Time codeine Allergy Vomiting Verified 09/11/18 16:28 diltiazem [From Cardizem] AdvReac See Verified 09/11/18 16:28 Comments Date of admission: 09/11/18 12:30 Primary care physician: Jaime Swenson MD Consults: 09/11/18 10:55 Consult to Cardiology [CONS] Stat Comment: Consulting Provider: Cardiology Krystal Reason for Consult: afib rvr Call Completed: Yes - Constitutional Vitals: Temp Pulse Resp BP Pulse Ox 98.4 F 50 16 130/47 95 09/12/18 10:05 09/12/18 12:07 09/12/18 10:05 09/12/18 12:07 09/12/18 12:07 Exam: Vitals: Reviewed General: Alert and oriented x4. In no distress Cardiovascular: Irregularly, irregular, normal S1 & S2, no rubs, murmurs or gallops. Lungs: CTA b/l, no wheezes or crackles. Abdomen: Soft, non-tender, no rigidity. Extremities: No edema Neurological: Normal cognition and motor skills. Rest of the physical exam is non contributory - Patient Status Disposition: Home, Self-Care Condition: Good Functional capacity at discharge: independent ambulation Overall status at discharge: patient is back to baseline - Discharge Instructions Follow Up With: Jaime Swenson MD [Primary Care Provider] - - Diet and Activity Activity: resume usual activities as tolerated Diet: advance to your usual diet
[2018-09-12 14:22] LABS: INR 1.9; Prothrombin Time 21.1 Seconds (9.4-12.1)
--- NOTE | 2018-09-12 15:16 | Cardiology Progress Note ---
Date of Encounter: 09/12/18 Time of Encounter: 15:11 Assessment and Plan (1) PAF (paroxysmal atrial fibrillation) Current Visit: No Status: Chronic Per cardiology: -Known PAF, admitted with a.fib RVR. -ON sotalol 40mg BID, deemed not a candidate for sotalol increase due to bradycardia when in SR. -Patient was given sotalol in ER, now currently SB, average HR 53. Denies dizziness, lightheadedness. States HR 40s is her baseline. -ON coumadin, INR subtherapeutic on admission and was placed on heparin drip; -TTE with LVEF 65%, no segmental wall motion abnormalities noted. -Continue current dose of sotalol. -Eliquis was bueno checked and noted to be $47/month. Patient states is affordable and patient was started on eliquis. -Cardiology will sign off and will arrange outpatient follow up. (2) Chest pain Current Visit: No Status: Acute Per cardiology: -Patient reported chest pain when HR was elevated, does have typical features though. -Troponins negative. -NO acute ischemic ECG changes noted. -Denies current chest pain. -ON statin, BB. -History of CAD s/p previous PCI. -Stress 2017 negative for ischemia or infarct. -Stress test this admission negative. -TTE with LVEF preserved, no wall motion abnormalities noted. -Will continue to monitor in outpatient setting. Qualifiers: Chest pain type: unspecified Qualified Code(s): R07.9 - Chest pain, unspecified Discussion w patient/family: The assessment and plan as outlined above was discussed with the patient and/or family members who expressed understanding and agreement. All questions were answered. Thank you for involving us in the care of your patient. Please call with any questions. Discussed and reviewed with . Subjective Principal diagnosis: a.fib RVR Interval history: Patient denies chest pain. Denies palpitations/fluttering. States she is anxious for discharge. Objective Vital Signs, Last 4 Hours Pulse BP Pulse Ox 09/12/18 12:07 50 130/47 95 General: Conversant, No Apparent Distress HEENT: Atraumatic, Normocephaly, Mucus Membranes Moist Neck: No JVD, Normal carotid pulses Cardiac: Reg Rate and Rhythm, Normal S1 and S2, No Murmur Lungs: Normal Breath Sounds, No Wheeze, Rales, Rhonchi Neuro: Alert and responsive, No focal deficits noted Abdomen: Soft, Non-Tender Skin: No rashes noted on visualized skin Musculoskeletal: No Chest Wall Tenderness Extremities: No Clubbing, No Cyanosis, No Edema, Normal Pulses Results 09/11/18 23:40 09/11/18 23:40 Lab Results Impressions Echocardiogram 09/12/18 08:00 Impressions: Sinus bradycardia/sinus arrhythmia. LVEF 65%. Moderate left ventricular diastolic dysfunction. Normal right ventricular structure and function. Mild-moderate aortic regurgitation. Mild-moderate mitral regurgitation. Mild-moderate tricuspid regurgitation. Mild pulmonary hypertension. Left Ventricular Wall Motion: Rest Echo Findings All wall segments showed normal motion. Findings: Study Quality * Technically adequate exam. ECG Findings * Sinus bradycardia/arrhythmia. Left Ventricle * LVEF 65%. * Normal LV chamber size, wall thickness and function. * Moderate left ventricular diastolic dysfunction. Right Ventricle * Normal right ventricular structure and function. Left Atrium * Moderately dilated left atrium. Right Atrium * Normal right atrial size. Aortic Valve * Aortic valve not well visualized. * No aortic stenosis. * Mild-moderate aortic regurgitation. Mitral Valve * Normal mitral valve structure. * No mitral stenosis. * Mild-moderate mitral regurgitation. Tricuspid Valve * Normal tricuspid valve structure. * Mild-moderate tricuspid regurgitation. * Estimated RA pressure is 3 mmHg. * Estimated RVSP is 40 mmHg. * Mild pulmonary hypertension. Pulmonic Valve * Pulmonic valve is not well visualized. * No pulmonic stenosis. * No pulmonic regurgitation. Pulmonary Artery * Pulmonary artery not well visualized. Aorta * Normally sized aortic root. * Proximal ascending thoracic aorta not well visualized. Pericardium * There is no pericardial effusion present. Interatrial Septum * No evidence of PFO by color Doppler. IVC * Normal IVC dimensions and inspiratory collapse. Active Medications Acetaminophen (Tylenol) 650 mg PO Q6HR PRN PRN Reason: Pain Stop: 03/14/19 10:01 Apixaban (Eliquis) 5 mg PO Q12HR [facility] Stop: 03/14/19 15:31 Naloxone HCl (Narcan) 0.4 mg IVP Q2MPRN PRN PRN Reason: SEE COMMENTS Stop: 03/13/19 11:23 Omeprazole (Prilosec) 20 mg PO DAILY@0630 [facility]; Protocol Stop: 03/14/19 16:25 Rosuvastatin Calcium (Crestor) 40 mg PO HS [facility] Stop: 03/13/19 21:01 Last Admin: 09/11/18 21:16 Dose: 40 mg Documented by: Sotalol HCl (Betapace) 40 mg PO Q12HR [facility] Stop: 03/13/19 23:01 Last Admin: 09/12/18 06:19 Dose: 40 mg Documented by: Tramadol HCl (Ultram) 50 mg PO Q6HR PRN PRN Reason: Moderate Pain Stop: 03/13/19 11:23 Last Admin: 09/11/18 17:01 Dose: 50 mg Documented by: - Imaging and Cardiology Chest Xray: report reviewed Stress Test: report reviewed Echo: report reviewed - EKG Interpretation EKG results cardiology: other (Telemetry reviewed with average HR previous 12 hours noted to be 53, SB. PACs noted.) Consult Discharge Plan - Plan Referrals: Jaime Swenson MD [Primary Care Provider] - Prescriptions: Apixaban [Eliquis] 5 mg PO BID 30 Days #60 tablet
[2018-09-12] MEDS ORDERED: Apixaban 5 MG TABLET PO SCH (15:30)
[2018-09-12] MEDS ORDERED: *HR* Warfarin 3 MG TABLET PO ONE (18:00)
== END 2018-09-12 16:34 | disposition home or self-care (01) ==
LOC: EMEROOARM 09:03 → 2NENU 09:03
PROVIDERS: ADMIT Internal Medicine; ATTEND Internal Medicine

== ENCOUNTER 2020-03-13 23:49 | Inpatient (IN) ==
[2020-03-14] MEDS ORDERED: 0.9 % Sodium Chloride 1,000 ML IVC ONE (00:04)
[2020-03-14 00:39] LABS: Basophils % 0.2 %; Eosinophils # 0.1 K/mcL (0.0-0.6); Eosinophils % 0.6 %; Hematocrit 40.5 % (35.3-44.9); Hemoglobin 13.5 g/dL (11.5-15.4); Immature Granulocytes % 0.1 % (0-4); Lymphocytes # 2.7 K/mcL (0.6-4.6); Lymphocytes % 30.1 %; Mean Corpuscular HGB Conc 33.3 g/dL (31.6-35.5); Mean Corpuscular Hemoglobin 29.7 pg (28.0-33.3); Mean Platelet Volume 10.1 fL (9.4-12.4); Monocytes # 0.8 K/mcL (0.0-1.3); Monocytes % 9.3 %; Neutrophils # 5.3 K/mcL (1.6-8.9); Platelet Count 331 K/mcL (140-400); Red Blood Count 4.55 M/mcL (3.82-4.97); Red Cell Distribution Width 12.7 % (11.5-14.5); Segmented Neutrophils % 59.7 %; White Blood Count 8.9 K/mcL (4.3-11.1)
[2020-03-14 00:57] LABS: BUN/Creatinine Ratio 16 (6-26); Blood Urea Nitrogen 15 mg/dL (8-23); Carbon Dioxide 24 mEq/L (23-29); Chloride 105 mEq/L (98-107); Glucose 133 mg/dL (70-105); Magnesium 2.1 mg/dL (1.6-2.6); Osmolality,Calculated 289 (280-300); Phosphorous 2.9 mg/dL (2.7-4.5); Potassium 3.6 mEq/L (3.5-5.1); Sodium 138 mEq/L (136-145); eGFR For African Americans > 60 (> 60); eGFR For Non-African Americans 59 (> 60)
[2020-03-14 00:58] LABS: Troponin I 0.03 ng/mL (< 0.04)
[2020-03-14] MEDS ORDERED: *HR* Metoprolol 5 MG/5 ML VIAL IVP ONE (01:52)
[2020-03-14] MEDS ORDERED: Ondansetron 4 MG/2 ML VIAL IVP ONE (02:18)
[2020-03-14] MEDS ORDERED: Naloxone 0.4 MG/ML INJ IVP PRN (03:37)
[2020-03-14] MEDS ORDERED: Ondansetron 4 MG/2 ML VIAL IVP PRN (03:37)
[2020-03-14 07:40] LABS: Basophils % 0.5 %; Eosinophils # 0.1 K/mcL (0.0-0.6); Eosinophils % 1.9 %; Hematocrit 39.2 % (35.3-44.9); Immature Granulocytes % 0.2 % (0-4); Lymphocytes # 2.7 K/mcL (0.6-4.6); Lymphocytes % 41.7 %; Mean Corpuscular HGB Conc 33.2 g/dL (31.6-35.5); Mean Corpuscular Hemoglobin 28.8 pg (28.0-33.3); Mean Corpuscular Volume 86.7 fL (83.0-100.0); Mean Platelet Volume 10.1 fL (9.4-12.4); Monocytes # 0.8 K/mcL (0.0-1.3); Monocytes % 12.3 %; Neutrophils # 2.8 K/mcL (1.6-8.9); Platelet Count 333 K/mcL (140-400); Red Blood Count 4.52 M/mcL (3.82-4.97); Red Cell Distribution Width 12.7 % (11.5-14.5); Segmented Neutrophils % 43.4 %; White Blood Count 6.5 K/mcL (4.3-11.1)
[2020-03-14 08:00] LABS: Alanine Aminotransferase 18 Units/L (7-52); Albumin 4.2 g/dL (3.5-5.7); Albumin/Globulin Ratio 1.7 (1.1-2.2); Alkaline Phosphatase 58 Units/L (34-104); Aspartate Amino Transferase 20 Units/L (13-39); BUN/Creatinine Ratio 17 (6-26); Bilirubin,Total 0.6 mg/dL (0.3-1.0); Blood Urea Nitrogen 12 mg/dL (8-23); Calcium 9.5 mg/dL (8.6-10.3); Carbon Dioxide 22 mEq/L (23-29); Chloride 108 mEq/L (98-107); Globulin 2.5 g/dL (2.4-3.5); Glucose 118 mg/dL (70-105); Osmolality,Calculated 291 (280-300); Potassium 3.5 mEq/L (3.5-5.1); Sodium 140 mEq/L (136-145); Total Protein 6.7 g/dL (6.4-8.9); eGFR For African Americans > 60 (> 60); eGFR For Non-African Americans > 60 (> 60)
[2020-03-14 08:16] LABS: Troponin I 0.03 ng/mL (< 0.04)
[2020-03-14] MEDS ORDERED: amLODIPine 5 MG TABLET PO SCH (09:00)
[2020-03-14] MEDS: Apixaban 5 MG TABLET PO SCH ×2 (09:17→19:30)
[2020-03-14] MEDS: Acetaminophen 325 MG TABLET PO PRN (16:52)
[2020-03-14] MEDS ORDERED: Nitroglycerin 0.4 MG TAB.SUBL SL PRN (16:53)
[2020-03-15] MEDS: Multivit/Ca/Min/Fe/FA 1 TAB TABLET PO SCH (09:22)
[2020-03-15] MEDS: Apixaban 5 MG TABLET PO SCH (09:22)
[2020-03-15] MEDS: amLODIPine 5 MG TABLET PO SCH (10:00)
[2020-03-16 01:37] LABS: Basophils % 0.3 %; Eosinophils # 0.1 K/mcL (0.0-0.6); Eosinophils % 1.6 %; Hematocrit 37.9 % (35.3-44.9); Hemoglobin 12.5 g/dL (11.5-15.4); INR 1.3; Immature Granulocytes % 0.2 % (0-4); Lymphocytes # 2.7 K/mcL (0.6-4.6); Lymphocytes % 43.5 %; Mean Corpuscular Hemoglobin 29.3 pg (28.0-33.3); Mean Corpuscular Volume 88.8 fL (83.0-100.0); Mean Platelet Volume 10.2 fL (9.4-12.4); Monocytes # 0.6 K/mcL (0.0-1.3); Monocytes % 8.9 %; Neutrophils # 2.8 K/mcL (1.6-8.9); Platelet Count 299 K/mcL (140-400); Prothrombin Time 15.4 Seconds (9.4-12.1); Red Blood Count 4.27 M/mcL (3.82-4.97); Red Cell Distribution Width 12.6 % (11.5-14.5); Segmented Neutrophils % 45.5 %; White Blood Count 6.2 K/mcL (4.3-11.1)
[2020-03-16 02:03] LABS: BUN/Creatinine Ratio 25 (6-26); Blood Urea Nitrogen 19 mg/dL (8-23); Calcium 9.2 mg/dL (8.6-10.3); Carbon Dioxide 22 mEq/L (23-29); Chloride 108 mEq/L (98-107); Glucose 102 mg/dL (70-105); Osmolality,Calculated 290 (280-300); Potassium 3.9 mEq/L (3.5-5.1); Sodium 139 mEq/L (136-145); eGFR For African Americans > 60 (> 60); eGFR For Non-African Americans > 60 (> 60)
[2020-03-16] MEDS: amLODIPine 5 MG TABLET PO SCH (08:12)
[2020-03-16] MEDS ORDERED: CeFAZolin Syr 2,000MG/20 ML 2,000 MG/20 ML SYRINGE IVPB ONE (08:12)
[2020-03-16] MEDS: Multivit/Ca/Min/Fe/FA 1 TAB TABLET PO SCH (08:17)
[2020-03-16] MEDS ORDERED: 0.9 % Sodium Chloride 500 ML ONE (10:35)
[2020-03-16] MEDS ORDERED: 0.9 % Sodium Chloride 1,000 ML ONE (10:48)
[2020-03-16] MEDS ORDERED: *HR* FentaNYL (PF) 100 MCG/2 ML VIAL ONE (10:49)
[2020-03-16] MEDS ORDERED: *HR* Midazolam HCl 2 MG/2 ML VIAL ONE (10:49)
[2020-03-16] MEDS: *HR* Heparin 5,000 UNIT/ML VIAL SQ SCH ×2 (17:49→18:11)
[2020-03-16] MEDS: Acetaminophen 325 MG TABLET PO PRN (17:49)
[2020-03-16] MEDS: CeFAZolin 2 GM/120 ML BAG IVPB SCH (17:50)
[2020-03-17] MEDS: CeFAZolin 2 GM/120 ML BAG IVPB SCH (00:52)
[2020-03-17] MEDS: Acetaminophen 325 MG TABLET PO PRN (03:27)
[2020-03-17] MEDS: *HR* Heparin 5,000 UNIT/ML VIAL SQ SCH ×2 (05:30→05:37)
[2020-03-17] MEDS: amLODIPine 5 MG TABLET PO SCH (09:27)
[2020-03-17] MEDS: Multivit/Ca/Min/Fe/FA 1 TAB TABLET PO SCH (09:27)
[2020-03-17 11:07] VITALS: BP 141/75
== END 2020-03-17 13:50 | disposition home or self-care (01) | DRG 243 ==
LOC: 2ANU 23:49 → EMEROOARM 23:49 → SUATTDRO 03-14 02:31 → 2ANU 03-14 03:18 → SUATTDRO 03-14 16:18
PROVIDERS: ADMIT Internal Medicine; ATTEND Family Medicine